=== PATIENT | female | born 1960 | race Caucasian/White ===

== ENCOUNTER 2018-03-23 19:56 | Emergency (ER) | payer MEDICARE ==
--- NOTE | 2018-03-23 22:20 | ED ---
General Adult HPI - General Chief complaint: Extremity Problem,Nontraumatic Stated complaint: Swollen legs/feet Time Seen by Provider: 03/23/18 22:19 Source: patient Mode of arrival: ambulatory Limitations: no limitations - History of Present Illness Initial comments: Oneil is a morbidly obese 57-year-old female presenting to the emergency department for evaluation of lower extremity swelling. Patient reports that she has had intermittent lower extremity swelling for some time, however she recently drove to [place] and back to [place] pick[place] a family member than the airport and after that noticed significantly worse lower extremity edema with her left being more edematous than her right. Edema improves with elevation and worsens with walking. Patient states that her feet were so edematous she had trouble walking and had to use assistance. Her family at bedside also expresses concern that she has progressively become more short of breath over the past few months, she can only walk a very short distance before she has to stop to rest. The patient is uncertain if she has any history of congestive heart failure, she is on daily aspirin and no anticoagulation. Denies any history of DVT or PE. She has no known clotting disorder. - Related Data Allergies Allergy/AdvReac Type Severity Reaction Status Date / Time acetaminophen [From Vicodin] Allergy Unknown Verified 03/23/18 21:16 ampicillin [From Unasyn] Allergy Unknown Verified 03/23/18 21:16 clindamycin Allergy Unknown Verified 03/23/18 21:16 codeine Allergy Unknown Verified 03/23/18 21:16 dicyclomine [From Bentyl] Allergy Unknown Verified 03/23/18 21:16 hydrocodone [From Vicodin] Allergy Unknown Verified 03/23/18 21:16 ibuprofen [From Advil] Allergy Unknown Verified 03/23/18 21:16 lisinopril Allergy Unknown Verified 03/23/18 21:16 magnesium Allergy Unknown Verified 03/23/18 21:16 naproxen Allergy Unknown Verified 03/23/18 21:16 sulbactam [From Unasyn] Allergy Unknown Verified 03/23/18 21:16 sulfamethoxazole Allergy Unknown Verified 03/23/18 21:16 [From Bactrim] trimethoprim [From Bactrim] Allergy Unknown Verified 03/23/18 21:16 Review of Systems ROS Statement: Those systems with pertinent positive or pertinent negative responses have been documented in the HPI. ROS Other: All systems not noted in ROS Statement are negative. Constitutional: Denies: fever ENT: Denies: throat pain Respiratory: Reports: dyspnea Cardiovascular: Reports: dyspnea on exertion, edema. Denies: chest pain, palpitations, syncope Endocrine: Reports: fatigue Gastrointestinal: Denies: abdominal pain Genitourinary: Denies: urgency, dysuria Musculoskeletal: Denies: back pain Skin: Denies: rash, lesions Neurological: Denies: headache, weakness, numbness, paresthesias Psychiatric: Denies: anxiety, depression Hematological/Lymphatic: Denies: easy bleeding, easy bruising Past Medical History Past Medical History: Hypertension, Osteoarthritis (OA) Additional Past Medical History / Comment(s): lupus History of Any Multi-Drug Resistant Organisms: MRSA Date of last positivie culture/infection: 2007 MDRO Source:: leg Past Surgical History: Section, Orthopedic Surgery Additional Past Surgical History / Comment(s): right foot, leg Past Psychological History: No Psychological Hx Reported Smoking Status: Never smoker Past Alcohol Use History: None Reported Past Drug Use History: None Reported General Exam Limitations: no limitations General appearance: alert, in no apparent distress Head exam: Present: atraumatic, normocephalic Eye exam: Present: normal appearance, PERRL ENT exam: Present: normal exam Neck exam: Present: normal inspection Respiratory exam: Absent: respiratory distress, wheezes Cardiovascular Exam: Present: regular rate, normal rhythm, other (Strong radial pulses bilaterally) GI/Abdominal exam: Absent: soft, distended Rectal exam: Present: deferred Extremities exam: Present: normal inspection Back exam: Present: normal inspection Neurological exam: Present: alert, oriented X3 Psychiatric exam: Present: normal affect, normal mood Skin exam: Present: warm, dry, intact. Absent: petechiae, pallor Course Vital Signs 03/23/18 03/23/18 21:08 22:24 Temperature 97.9 F Pulse Rate 78 81 Respiratory 18 17 Rate Blood Pressure 147/96 162/79 O2 Sat by Pulse 96 97 Oximetry Medical Decision Making - Medical Decision Making The patient was seen and evaluated, history was obtained from the patient as well as her sister at bedside Patient with progressively worsening shortness of breath with exertion over the past few months, is also noted some lower extremity edema worsened over the past week or so Labs and imaging were ordered EKG is normal sinus rhythm with a rate of 79, normal axis, patient does have an RR prime pattern TX of 166, QRS of 80, QTc is [address] elevations or depressions Troponin and BNP negative Bilateral lower extremity Dopplers were negative At this time I suspect that the patient's lower extremity edema is multifactorial relating to obesity, heat, exertion but not related to congestive heart failure or a blood clot. I suspect that the patient's exertional dyspnea is related to deconditioning and suggested the patient follow up with her primary care physician to discuss possible as ago therapy. I advised patient she would benefit from weight loss. All questions pertaining to care were answered the best my ability patient was discharged home in stable condition. - Lab Data Result diagrams: 03/23/18 22:30 03/23/18 22:30 Lab Results 03/23/18 03/23/18 03/23/18 Range/Units 22:30 22:30 22:30 WBC 9.9 (3.8-10.6) k/uL RBC 5.03 (3.80-5.40) m/uL Hgb 14.0 (11.4-16.0) gm/dL Hct 43.7 (34.0-46.0) % MCV 86.9 (80.0-100.0) fL MCH 27.8 (25.0-35.0) pg MCHC 32.0 (31.0-37.0) g/dL RDW 14.5 (11.5-15.5) % Plt Count 339 (150-450) k/uL Neutrophils % 68 % Lymphocytes % 21 % Monocytes % 7 % Eosinophils % 3 % Basophils % 0 % Neutrophils # 6.8 (1.3-7.7) k/uL Lymphocytes # 2.1 (1.0-4.8) k/uL Monocytes # 0.7 (0-1.0) k/uL Eosinophils # 0.3 (0-0.7) k/uL Basophils # 0.0 (0-0.2) k/uL PT (9.0-12.0) sec INR (<1.2) APTT (22.0-30.0) sec Sodium 139 (137-145) mmol/L Potassium 4.9 (3.5-5.1) mmol/L Chloride 99 (98-107) mmol/L Carbon Dioxide 31 H (22-30) mmol/L Anion Gap 9 mmol/L BUN 16 (7-17) mg/dL Creatinine 0.90 (0.52-1.04) mg/dL Est GFR (CKD-EPI)AfAm 84 (>60 ml/min/1.73 sqM) Est GFR (CKD-EPI)NonAf 73 (>60 ml/min/1.73 sqM) Glucose 90 (74-99) mg/dL Calcium 9.6 (8.4-10.2) mg/dL Magnesium 2.0 (1.6-2.3) mg/dL Total Bilirubin 0.3 (0.2-1.3) mg/dL AST 21 (14-36) U/L ALT 28 (9-52) U/L Alkaline Phosphatase 109 (38-126) U/L Troponin I (0.000-0.034) ng/mL NT-Pro-B Natriuret Pep 51 pg/mL Total Protein 7.2 (6.3-8.2) g/dL Albumin 4.1 (3.5-5.0) g/dL 03/23/18 03/23/18 Range/Units 22:30 22:30 WBC (3.8-10.6) k/uL RBC (3.80-5.40) m/uL Hgb (11.4-16.0) gm/dL Hct (34.0-46.0) % MCV (80.0-100.0) fL MCH (25.0-35.0) pg MCHC (31.0-37.0) g/dL RDW (11.5-15.5) % Plt Count (150-450) k/uL Neutrophils % % Lymphocytes % % Monocytes % % Eosinophils % % Basophils % % Neutrophils # (1.3-7.7) k/uL Lymphocytes # (1.0-4.8) k/uL Monocytes # (0-1.0) k/uL Eosinophils # (0-0.7) k/uL Basophils # (0-0.2) k/uL PT 9.4 (9.0-12.0) sec INR 0.9 (<1.2) APTT 22.8 (22.0-30.0) sec Sodium (137-145) mmol/L Potassium (3.5-5.1) mmol/L Chloride (98-107) mmol/L Carbon Dioxide (22-30) mmol/L Anion Gap mmol/L BUN (7-17) mg/dL Creatinine (0.52-1.04) mg/dL Est GFR (CKD-EPI)AfAm (>60 ml/min/1.73 sqM) Est GFR (CKD-EPI)NonAf (>60 ml/min/1.73 sqM) Glucose (74-99) mg/dL Calcium (8.4-10.2) mg/dL Magnesium (1.6-2.3) mg/dL Total Bilirubin (0.2-1.3) mg/dL AST (14-36) U/L ALT (9-52) U/L Alkaline Phosphatase (38-126) U/L Troponin I <0.012 (0.000-0.034) ng/mL NT-Pro-B Natriuret Pep pg/mL Total Protein (6.3-8.2) g/dL Albumin (3.5-5.0) g/dL Disposition Clinical Impression: Lower extremity edema, Physical deconditioning Disposition: HOME SELF-CARE Condition: Good Instructions: Leg Edema (ED), Cardiac Rehabilitation (ED) Is patient prescribed a controlled substance at d/c from ED?: No Referrals: None,Stated [REFERRING] - 1-2 days Time of Disposition: 00:41 Decision Time: 00:29
[2018-03-23 22:25] VITALS: RESP 17
--- NOTE | 2018-03-23 23:07 | XR ---
EXAMINATION TYPE: XR chest 2V DATE OF EXAM: 03/23/2018 COMPARISON: NONE HISTORY: Chest pain TECHNIQUE: Frontal and lateral views of the chest are obtained. FINDINGS: There is no heart failure nor confluent pneumonic infiltrate. Costophrenic angles are perry r. Bony thorax is intact. IMPRESSION: No active cardiopulmonary disease.
[2018-03-23 23:20] LABS: Basophils % (A) 0 %; Eosinophils # (A) 0.3 k/uL (0-0.7); Eosinophils % (A) 3 %; HCT 43.7 % (34.0-46.0); Lymphocytes # (A) 2.1 k/uL (1.0-4.8); Lymphocytes % (A) 21 %; MCH 27.8 pg (25.0-35.0); MCV 86.9 fL (80.0-100.0); Mean Platelet Volume 6.4; Monocytes # (A) 0.7 k/uL (0-1.0); Monocytes % (A) 7 %; Neutrophils # (A) 6.8 k/uL (1.3-7.7); Neutrophils % (A) 68 %; Platelet Count 339 k/uL (150-450); RBC 5.03 m/uL (3.80-5.40); RDW 14.5 % (11.5-15.5); WBC 9.9 k/uL (3.8-10.6)
[2018-03-23 23:22] LABS: INR 0.9 (<1.2); Partial Thromboplastin Time 22.8 sec (22.0-30.0); Prothrombin Time 9.4 sec (9.0-12.0)
[2018-03-23 23:24] LABS: Albumin 4.1 g/dL (3.5-5.0); Calcium 9.6 mg/dL (8.4-10.2); Potassium 4.9 mmol/L (3.5-5.1); Total Bilirubin 0.3 mg/dL (0.2-1.3); Total Protein 7.2 g/dL (6.3-8.2)
--- NOTE | 2018-03-24 00:07 | US ---
EXAMINATION TYPE: US venous doppler duplex LE BI DATE OF EXAM: 03/23/2018 11:49 PM COMPARISON: NONE CLINICAL HISTORY: Pain. Bilateral edema Exam limitations due to body habitus. SIDE PERFORMED: Bilateral TECHNIQUE: The lower extremity deep venous system is examined utilizing real time linear array sonog abdullahi with graded compression, doppler sonography and color-flow sonography. VESSELS IMAGED: External Iliac Vein (EIV) Common Femoral Vein Deep Femoral Vein Greater Saphenous Vein * Femoral Vein Popliteal Vein Small Saphenous Vein * Right Leg: Negative for DVT Left Leg: Negative for DVT No evidence of DVT bilateral legs. IMPRESSION: Normal exam. No deep venous thrombosis in both legs.
[2018-03-24 00:46] VITALS: BP 162/73; PULSE 85; TEMP 98.6
== END 2018-03-24 00:45 | disposition home or self-care (01) ==
LOC: EC 19:56
DX: R60.0 Localized edema (principal); E66.01 Morbid (severe) obesity due to excess calories; Z68.43 Body mass index [BMI] 50.0-59.9, adult; Z86.14 Personal history of Methicillin resistant Staphylococcus aureus infection; Z88.2 Allergy status to sulfonamides; Z88.6 Allergy status to analgesic agent; Z88.5 Allergy status to narcotic agent; Z88.1 Allergy status to other antibiotic agents; Z88.8 Allergy status to other drugs, medicaments and biological substances
CPT/HCPCS: 36415; 71046; 80053; 83735; 83880; 84484; 85025; 85610; 85730; 93005; 93970; 99284

== ENCOUNTER 2018-05-25 16:05 | Inpatient (IN) | payer MEDICARE ==
[2018-05-25] MEDS ORDERED: SODIUM CHLORIDE 0.9% 500 ML 500 ML IV STA (16:22)
--- NOTE | 2018-05-25 16:24 | ED ---
General Adult HPI - General Chief complaint: Seizure Stated complaint: seizure Time Seen by Provider: 05/25/18 16:05 Source: patient, EMS, RN notes reviewed Mode of arrival: EMS Limitations: no limitations - History of Present Illness Initial comments: This a 57-year-old female who presents emergency department with past medical history significant for lupus and high blood pressure. Patient also started gabapentin 2 days ago for the first time. Patient comes in today because she had 3 seizures according to the sister. According to EMS she had one in route. EMS gave her Versed. Patient is currently alert and oriented and able to answer all questions. Patient states she felt very tired today prior to the seizures because she was doing a lot of walking around but she was shopping. Patient denied any recent fever chills or cough. Patient denies any chest pain palpitations. Patient denies any difficulty breathing shortness of breath. Patient denies any abdominal pain patient denies any nausea vomiting diarrhea recently. Patient denied any dysuria hematuria urinary frequency. Patient denied any head trauma or injury recently. Patient does not recall ever having had a seizure in the past. - Related Data Home Medications Medication Instructions Recorded Confirmed Aspirin EC [Ecotrin Low Dose] 81 mg PO DAILY 05/25/18 05/25/18 Betamethasone Dipropionate 1 applic TOPICAL BID 05/25/18 05/25/18 [Betamethasone Dipropionate 0.05%] Furosemide [Lasix] 50 mg PO BID 05/25/18 05/25/18 Gabapentin [Neurontin] 300 mg PO TID 05/25/18 05/25/18 Ketoconazole 2% Cream [Nizoral 2%] 1 applic TOPICAL DAILY 05/25/18 05/25/18 Levothyroxine Sodium [Synthroid] 100 mcg PO DAILY 05/25/18 05/25/18 Metoprolol Tartrate [Lopressor] 50 mg PO BID 05/25/18 05/25/18 Omeprazole 20 mg PO DAILY 05/25/18 05/25/18 Allergies Allergy/AdvReac Type Severity Reaction Status Date / Time acetaminophen [From Vicodin] Allergy Unknown Verified 05/25/18 16:28 ampicillin [From Unasyn] Allergy Unknown Verified 05/25/18 16:28 clindamycin Allergy Unknown Verified 05/25/18 16:28 codeine Allergy Unknown Verified 05/25/18 16:28 dicyclomine [From Bentyl] Allergy Unknown Verified 05/25/18 16:28 hydrocodone [From Vicodin] Allergy Unknown Verified 05/25/18 16:28 ibuprofen [From Advil] Allergy Unknown Verified 05/25/18 16:28 lisinopril Allergy Unknown Verified 05/25/18 16:28 magnesium Allergy Unknown Verified 05/25/18 16:28 naproxen Allergy Unknown Verified 05/25/18 16:28 sulbactam [From Unasyn] Allergy Unknown Verified 05/25/18 16:28 sulfamethoxazole Allergy Unknown Verified 05/25/18 16:28 [From Bactrim] trimethoprim [From Bactrim] Allergy Unknown Verified 05/25/18 16:28 Review of Systems ROS Statement: Those systems with pertinent positive or pertinent negative responses have been documented in the HPI. ROS Other: All systems not noted in ROS Statement are negative. Past Medical History Past Medical History: Hypertension, Osteoarthritis (OA) Additional Past Medical History / Comment(s): lupus History of Any Multi-Drug Resistant Organisms: MRSA Date of last positivie culture/infection: 2007 MDRO Source:: leg Past Surgical History: Section, Orthopedic Surgery Additional Past Surgical History / Comment(s): right foot, leg Past Psychological History: No Psychological Hx Reported Smoking Status: Never smoker Past Alcohol Use History: None Reported Past Drug Use History: None Reported General Exam - General Exam Comments Initial Comments: GENERAL: Patient is well-developed and well-nourished. Patient is nontoxic and well- hydrated and is in no acute distress. ENT: Neck is soft and supple. No significant lymphadenopathy is noted. Oropharynx is clear. Moist mucous membranes. Neck has full range of motion without eliciting any pain. EYES: The sclera were anicteric and conjunctiva were pink and moist. Extraocular movements were intact and pupils were equal round and reactive to light. Eyelids were unremarkable. PULMONARY: Unlabored respirations. Good breath sounds bilaterally. No audible rales rhonchi or wheezing was noted. CARDIOVASCULAR: There is a regular rate and rhythm without any murmurs gallops or rubs. ABDOMEN: Soft and nontender with normal bowel sounds. No palpable organomegaly was noted. There is no palpable pulsatile mass. SKIN: Skin is clear with no lesions or rashes and otherwise unremarkable. NEUROLOGIC: Patient is alert and oriented x3. Cranial nerves II through XII are grossly intact. Motor and sensory are also intact. Normal speech, volume and content. Symmetrical smile. MUSCULOSKELETAL: Normal extremities with adequate strength and full range of motion. No lower extremity swelling or edema. No calf tenderness. LYMPHATICS: No significant lymphadenopathy is noted PSYCHIATRIC: Normal psychiatric evaluation. Limitations: no limitations Course Vital Signs 05/25/18 05/25/18 05/25/18 16:07 16:30 17:00 Temperature 98 F Pulse Rate 94 88 89 Respiratory 18 18 16 Rate Blood Pressure 153/84 153/84 152/69 O2 Sat by Pulse 93 L 95 Oximetry 05/25/18 17:30 Temperature Pulse Rate 84 Respiratory 19 Rate Blood Pressure 148/88 O2 Sat by Pulse Oximetry Medical Decision Making - Medical Decision Making EKG shows a normal sinus rhythm at 91 bpm KS interval is 166 QRS is 88 QT interval 398 QTC is 489. Patient's EKG shows no ST segment elevation or depression or T wave abnormalities are noted. CT of the head shows no acute abnormality. Patient had no more seizures while in the emergency department. Because the patient had 4 separate seizures I decided to keep the patient and have neurology see the patient. I also told the patient that the Neurontin which she just recently started taking could lower her seizure threshold. [facility] I wrote admitting orders. - Lab Data Result diagrams: 05/25/18 16:57 05/25/18 16:57 Lab Results 05/25/18 05/25/18 05/25/18 Range/Units 16:57 16:57 16:57 WBC 6.9 (3.8-10.6) k/uL RBC 3.86 (3.80-5.40) m/uL Hgb 10.8 L (11.4-16.0) gm/dL Hct 35.2 (34.0-46.0) % MCV 91.0 (80.0-100.0) fL MCH 27.8 (25.0-35.0) pg MCHC 30.6 L (31.0-37.0) g/dL RDW 14.3 (11.5-15.5) % Plt Count 146 L (150-450) k/uL Neutrophils % 71 % Lymphocytes % 18 % Monocytes % 6 % Eosinophils % 4 % Basophils % 0 % Neutrophils # 4.9 (1.3-7.7) k/uL Lymphocytes # 1.3 (1.0-4.8) k/uL Monocytes # 0.4 (0-1.0) k/uL Eosinophils # 0.3 (0-0.7) k/uL Basophils # 0.0 (0-0.2) k/uL Hypochromasia Slight Sodium 140 (137-145) mmol/L Potassium 4.4 (3.5-5.1) mmol/L Chloride 104 (98-107) mmol/L Carbon Dioxide 28 (22-30) mmol/L Anion Gap 8 mmol/L BUN 16 (7-17) mg/dL Creatinine 1.02 (0.52-1.04) mg/dL Est GFR (CKD-EPI)AfAm 72 (>60 ml/min/1.73 sqM) Est GFR (CKD-EPI)NonAf 62 (>60 ml/min/1.73 sqM) Glucose 97 (74-99) mg/dL Calcium 7.9 L (8.4-10.2) mg/dL Magnesium 2.0 (1.6-2.3) mg/dL Total Bilirubin 0.3 (0.2-1.3) mg/dL AST 23 (14-36) U/L ALT 27 (9-52) U/L Alkaline Phosphatase 99 (38-126) U/L Total Creatine Kinase 61 (30-135) U/L CK-MB (CK-2) <0.2 (0.0-2.4) ng/mL CK-MB (CK-2) Rel Index Troponin I <0.012 (0.000-0.034) ng/mL Total Protein 6.2 L (6.3-8.2) g/dL Albumin 3.5 (3.5-5.0) g/dL Disposition Clinical Impression: Status epilepticus Disposition: ADMITTED IP TO THIS HOSP Referrals: Roge Gil MD [Primary Care Provider] - 1-2 days Time of Disposition: 18:25
[2018-05-25 17:11] LABS: Basophils % (A) 0 %; Eosinophils # (A) 0.3 k/uL (0-0.7); Eosinophils % (A) 4 %; HCT 35.2 % (34.0-46.0); HGB 10.8 gm/dL (11.4-16.0); Hypochromasia Slight; Lymphocytes # (A) 1.3 k/uL (1.0-4.8); Lymphocytes % (A) 18 %; MCH 27.8 pg (25.0-35.0); MCHC 30.6 g/dL (31.0-37.0); Mean Platelet Volume 6.9; Monocytes # (A) 0.4 k/uL (0-1.0); Monocytes % (A) 6 %; Neutrophils # (A) 4.9 k/uL (1.3-7.7); Neutrophils % (A) 71 %; Platelet Count 146 k/uL (150-450); RBC 3.86 m/uL (3.80-5.40); RDW 14.3 % (11.5-15.5); WBC 6.9 k/uL (3.8-10.6)
[2018-05-25 17:23] LABS: Albumin 3.5 g/dL (3.5-5.0); Calcium 7.9 mg/dL (8.4-10.2); Potassium 4.4 mmol/L (3.5-5.1); Total Bilirubin 0.3 mg/dL (0.2-1.3); Total Protein 6.2 g/dL (6.3-8.2)
[2018-05-25 17:35] LABS: Creatine Kinase 61 U/L (30-135)
[2018-05-25 17:46] LABS: Creatine Kinase MB <0.2 ng/mL (0.0-2.4); Troponin I <0.012 ng/mL (0.000-0.034)
--- NOTE | 2018-05-25 18:18 | CT ---
EXAMINATION TYPE: CT brain wo con DATE OF EXAM: 05/25/2018 COMPARISON: None HISTORY: seizure activity CT DLP: 1040.4 mGycm Automated exposure control for dose reduction was used. FINDINGS: Ventricles of normal size. There is no mass effect nor midline shift. There is no sign of intracrania l hemorrhage. The calvarium is intact. IMPRESSION: NEGATIVE CT SCAN OF THE BRAIN.
[2018-05-25] MEDS ORDERED: SODIUM CHLORIDE 0.9% 1,000 ML IV ONE (18:25)
[2018-05-25] MEDS ORDERED: MELATONIN 3 MG TABLET PO PRN (20:27)
--- NOTE | 2018-05-25 20:52 | XR ---
EXAMINATION TYPE: XR chest 1V portable DATE OF EXAM: 05/25/2018 COMPARISON: 03/23/2018 HISTORY: Seizure. Heart failure TECHNIQUE: Single frontal view of the chest is obtained. FINDINGS: Heart and mediastinum appear normal. Lungs are clear. There is no heart failure. There is no evidence of pleural effusion. IMPRESSION: No active cardiopulmonary disease. No change.
[2018-05-25 21:23] LABS: Prothrombin Time 9.9 sec (9.0-12.0)
--- NOTE | 2018-05-25 21:33 | HP ---
HISTORY AND PHYSICAL DATE OF SERVICE: 05/25/2018 CHIEF COMPLAINT: Seizures. HISTORY OF PRESENT ILLNESS: This 57-year-old woman with a past medical history of multiple medical problems, hypertension, history of DJD, sleep apnea, history of lupus, history of thyroid mass, history of MRSA being followed by Dr. Guan in the outpatient setting noted to have seizures today. The patient was started on gabapentin about 2 days ago and patient apparently had 4 seizures according to the sister, generalized tonic- clonic and the EMS, gave Versed and the patient became gradually oriented but unable to remember seizures and patient admitted for further evaluation and treatment. There is no history of fever, rigors or chills. No history of any chest pain, palpitations, hematochezia or melena. PAST MEDICAL HISTORY: Past medical history of hypertension, DJD, sleep apnea, lupus, section. MEDICATIONS: Prior to admission include: 1. Ketoconazole 1 application daily. 2. Neurontin 300 mg t.i.d. 3. Betamethasone one application b.i.d. 4. Lopressor 50 mg b.i.d. 5. Synthroid 100 mcg. 6. Omeprazole 20 mg p.o. daily. 8. Ecotrin 81 mg p.o. daily. ALLERGIES: TYLENOL, CLINDAMYCIN, CODEINE, VICODIN, LISINOPRIL, MAGNESIUM, NAPROSYN, UNASYN, BACTRIM. FAMILY HISTORY: History of cancer, seizure disorder, hypertension. SOCIAL HISTORY: No history of smoking. No history of alcohol intake. REVIEW OF SYSTEMS: ENT: No diminished vision, no diminished hearing. CARDIOVASCULAR: No angina or palpitations. RESPIRATORY: No cough or hemoptysis. GI no nausea or vomiting. no dysuria. NERVOUS SYSTEM: As mentioned earlier. ALLERGIES/IMMUNOLOGY: No asthma or hayfever. MUSCULOSKELETAL as mentioned earlier. HEMATOLOGY: No history of anemia. ENDOCRINE: As mentioned earlier. CONSTITUTIONAL: As mentioned earlier. DERMATOLOGY negative. RHEUMATOLOGY as mentioned earlier. PSYCHIATRIC: As mentioned earlier. PHYSICAL EXAMINATION: GENERAL: Alert, oriented x3. VITAL SIGNS: Pulse 79. Blood pressure 119/72, respiratory rate 16, temperature 98 degrees, pulse ox 98% on room air. HEENT: Conjunctivae normal. Oral mucosa moist. NECK is no jugular venous distention. No carotid bruit. No lymph node enlargement. CARDIOVASCULAR: S1, S2. RESPIRATORY: Breath sounds diminished in the bases. No rhonchi. No crackles. ABDOMEN: Soft, nontender. No mass palpable. LEGS: No edema. No swelling. NERVOUS SYSTEM: Higher functions as mentioned earlier. CENTRAL NERVOUS SYSTEM: Higher functions as mentioned earlier. Moves all four extremities. No focal deficits. Lymphatics: No lymph nodes palpable in the neck, axillae or groin. SKIN: No ulcer, rash or bleeding. LABS: WBC 6.2, hemoglobin 10.8, and calcium 7.9. ASSESSMENT: 1. Generalized tonic-clonic seizures for evaluation. 2. History of lupus erythematosus. 3. History of hypertension. 4. History of degenerative joint disease. 5. History of hypothyroidism. 6. History of thyroid masses. 7. History of Methicillin-resistant Staphylococcus aureus. 8. History of section. 9. History of degenerative joint disease. 10.Obesity, body mass index 53.1. RECOMMENDATIONS AND DISCUSSION: In this 57-year-old woman who presents with multiple medical problems, I recommend to continue current medications, management and symptomatic treatment. Otherwise, resume the home medications. Neurology evaluation. The initial CAT scan of the brain did not show any acute abnormality. I will also obtain MRI and also order ESR and CRP and Ensure. Rheumatology followup as well. Prognosis guarded because of multiple complex medical issues. Neuro checks. Neurovascular workup. Further recommendations to follow. A copy of this dictation being forward to Dr. Gil who is the primary physician. PERLA / HERIBERTO: [id number] / MTDD
[2018-05-25] MEDS: METOPROLOL TARTRATE 50 MG TAB PO SCH (22:48)
[2018-05-25] MEDS: FUROSEMIDE 20 MG TAB PO SCH (22:49)
[2018-05-25] MEDS: HEPARIN SODIUM,PORCINE 5,000 UNIT/ML 1 ML VIAL SQ SCH (22:50)
[2018-05-25] MEDS: BETAMETHASONE DIPROPIONATE 0.05% OINTMENT 45 GM TUBE TOPICAL SCH (22:50)
[2018-05-25] MEDS ORDERED: PANTOPRAZOLE 40 MG TABLET PO STA (22:52)
[2018-05-26 00:29] LABS: Appearance,Urine Clear (Clear); Bacteria,Urine Rare /hpf; Bilirubin,Urine Negative (Negative); Blood,Urine Negative (Negative); Color,Urine Light Yellow; Glucose,Urine (UA) Negative (Negative); Ketones,Urine Negative (Negative); Leukocyte Esterase,Urine Large (Negative); Nitrite,Urine Negative (Negative); PH, Urine 6.5 (5.0-8.0); Protein,Urine Negative (Negative); RBC,Urine 2 /hpf (0-5); Specific Gravity,Urine 1.012 (1.001-1.035); Squamous Epithelial Cell,Urine 4 /hpf (0-4); Urobilinogen,Urine <2.0 mg/dL (<2.0)
[2018-05-26 00:35] LABS: Amphetamine Screen,Urine Not Detected (NotDetected); Barbiturate Screen,Urine Not Detected (NotDetected); Benzodiazepines Screen,Urine Not Detected (NotDetected); Cocaine Screen,Urine Not Detected (NotDetected); Methadone Screen, Urine Not Detected (NotDetected); Opiate Screen,Urine Not Detected (NotDetected); Oxycodone Screen, Urine Not Detected (NotDetected); Phencyclidine Screen,Urine Not Detected (NotDetected); Tricyclic Antidepressant,Urine Not Detected (NotDetected); Urn Cannabinoid Scrn Not Detected (NotDetected)
[2018-05-26] MEDS: LORazepam 2 MG/ML INJ IV PRN ×3 (01:41→22:17)
[2018-05-26] MEDS ORDERED: levETIRAcetam IV 500 MG in SODIUM CHLORIDE 0.9% 100 ML IVPB SCH (05:00)
[2018-05-26] MEDS: HYDROcodone/APAP 5-325MG 1 EACH TAB PO PRN ×2 (05:11→17:02)
[2018-05-26] MEDS: LIDOCAINE 5% PATCH TOPICAL SCH ×2 (05:39→10:08)
[2018-05-26] MEDS: LEVOTHYROXINE 100 MCG TAB PO SCH (05:40)
[2018-05-26] MEDS ORDERED: PANTOPRAZOLE 40 MG TABLET PO SCH (07:30)
[2018-05-26 09:36] LABS: Basophils % (A) 0 %; Eosinophils # (A) 0.2 k/uL (0-0.7); Eosinophils % (A) 2 %; HCT 40.9 % (34.0-46.0); Hypochromasia Slight; Lymphocytes # (A) 1.2 k/uL (1.0-4.8); Lymphocytes % (A) 15 %; MCH 28.7 pg (25.0-35.0); MCHC 31.8 g/dL (31.0-37.0); MCV 90.1 fL (80.0-100.0); Mean Platelet Volume 5.9; Monocytes # (A) 0.4 k/uL (0-1.0); Monocytes % (A) 5 %; Neutrophils # (A) 6.1 k/uL (1.3-7.7); Neutrophils % (A) 76 %; Platelet Count 251 k/uL (150-450); RBC 4.54 m/uL (3.80-5.40); RDW 14.1 % (11.5-15.5)
[2018-05-26 09:38] LABS: Calcium 8.4 mg/dL (8.4-10.2); Magnesium 1.9 mg/dL (1.6-2.3)
--- NOTE | 2018-05-26 09:53 | US ---
EXAMINATION TYPE: US carotid duplex BILAT DATE OF EXAM: 05/26/2018 COMPARISON: NONE CLINICAL HISTORY: stroke. EXAM MEASUREMENTS: RIGHT: Peak Systolic Velocity (PSV) cm/sec ----- Right CCA: 117.7 ----- Right ICA: 77.4 ----- Right ECA: 111.3 ICA/CCA ratio: 0.7 RIGHT: End Diastole cm/sec ----- Right CCA: 35.4 ----- Right ICA: 25.7 ----- Right ECA: 22.5 LEFT: Peak Systolic Velocity (PSV) cm/sec ----- Left CCA: 88.7 ----- Left ICA: 104.8 ----- Left ECA: 124.2 ICA/CCA ratio: 1.2 LEFT: End Diastole cm/sec ----- Left CCA: 32.1 ----- Left ICA: 33.8 ----- Left ECA: 17.6 VERTEBRALS (direction of flow): Right Vertebral: Antegrade Left Vertebral: Antegrade Rhythm: Normal IMPRESSION: Moderate amount of plaque visualized bilateral bulbs. No elevated velocities, no signific ant stenosis. Criteria for Assigning % of Stenosis / Diameter reduction (Estimation based on the indirect measurements of the internal carotid artery velocities (ICA PSV). 1. Normal (no stenosis)=ICA PSV < 125 cm/s: ratio < 2.0: ICA EDV<40 cm/s. 2. Less than 50% stenosis=ICA PSV < 125 cm/s: ratio < 2.0: ICA EDV<40 cm/s. 3. 50 to 69% stenosis=ICA PSV of 125 to 230 cm/s: ration 2.0 ? 4.0: ICA EDV 40-100 cm/s. 4. Greater than 70% stenosis to near occlusion= ICA PSV > 230 cm/s: ratio > 4.0: ICA EDV > 100 cm/s. 5. Near occlusion= ICA PSV velocities may be low or undetectable: variable ratio and ICA EDV. 6. Total occlusion=unable to detect flow.
[2018-05-26] MEDS: METOPROLOL TARTRATE 50 MG TAB PO SCH ×2 (10:07→23:10)
[2018-05-26] MEDS: ASPIRIN 81 MG PO SCH (10:07)
[2018-05-26] MEDS: FUROSEMIDE 20 MG TAB PO SCH ×2 (10:07→17:02)
[2018-05-26] MEDS: PANTOPRAZOLE 40 MG TABLET PO SCH (10:08)
--- NOTE | 2018-05-26 11:39 | MR ---
MR brain without contrast HISTORY: Seizure Multiplanar multisequence imaging through the brain and correlated to CT brain 05/25/2018. Fast brain protocol utilized due to patient's inability to cooperate. There is no restricted diffusion. There is no hemorrhage or hydrocephalus. Scattered and confluent hy perintensities are present within the pericallosal, periventricular, subcortical white matter on inve rsion recovery T2-weighted sequences, approximately 30 lesions are present. Largest in the left front al white matter measures 7 to 8 mm on axial image 20, adjacent to the left lateral ventricle axial im age 20 there is a 10 mm lesion, right frontal lesion axial image 21 measures 9.5 mm. Within the maxil tomer sinuses there is some mucoperiosteal thickening present. Cerebellopontine angles, corpus callosu m, pituitary, cervical medullary junction are normal. The orbits are symmetric. There are normal vasc ular flow voids. IMPRESSION: Nonspecific white matter demyelination, correlate for possible multiple sclerosis, hypert ension, migraine headaches, vasculitis and chronic small vessel ischemic changes.
--- NOTE | 2018-05-26 12:30 | ECHOF ---
Referral Reason:Stroke MEASUREMENTS -------- HEIGHT: 160.0 cm WEIGHT: 136.1 kg BP: 152/88 IVSd: 1.2 cm (0.6 - 1.1) LVIDd: 4.8 cm (3.9 - 5.3) LVPWd: 1.1 cm (0.6 - 1.1) IVSs: 1.6 cm LVIDs: 2.9 cm LVPWs: 1.6 cm Ao Diam: 3.0 cm (2.0 - 3.7) LA Diam: 3.5 cm (2.7 - 3.8) MV E Kan: 0.83 m/s MV DecT: 202 ms MV A Kan: 0.81 m/s MV E/A Ratio: 1.03 RAP: 5.00 mmHg RVSP: 10.23 mmHg FINDINGS -------- Sinus rhythm. Morbid Obesity The left ventricular size is normal. There is mild concentric left ventricular hypertrophy. Overa ll left ventricular systolic function is low-normal with, an EF between 50 - 55 %. The right ventricle is normal in size. The left atrial size is normal. The right atrial size is normal. The aortic valve was not well visualized. The mitral valve was not well visualized. The tricuspid valve was not well visualized. The pulmonic valve was not well visualized. The aortic root size is normal. CONCLUSIONS -------- 1. Morbid Obesity 2. The left ventricular size is normal. 3. There is mild concentric left ventricular hypertrophy. 4. Overall left ventricular systolic function is low-normal with, an EF between 50 - 55 %. 5. The right ventricle is normal in size. 6. The left atrial size is normal. 7. The right atrial size is normal. 8. The aortic valve was not well visualized. 9. The mitral valve was not well visualized. 10. The tricuspid valve was not well visualized. 11. The pulmonic valve was not well visualized. 12. The aortic root size is normal. SUPERVISOR [employer]EE: Antonia Dumont RDCS
--- NOTE | 2018-05-26 15:08 | XR ---
EXAMINATION TYPE: XR lumbosacral spine min 4V DATE OF EXAM: 05/26/2018 CLINICAL HISTORY: Chronic back pain TECHNIQUE: Frontal, lateral, and oblique images of the lumbar spine are obtained. COMPARISON: None FINDINGS: There are 5 lumbar type vertebral bodies identified. The lumbar spine shows satisfactory alignment without evidence of acute fracture or dislocation. Small marginal osteophytes are seen thro ughout the lumbar spine. Facet arthropathy is present from L3 through S1. No discrete pars interartic ularis defects are appreciated. No right-sided neural foraminal narrowing is seen. There is suspected left-sided neural foraminal narrowing at L4-L5 appearing overall mild. There is a mild dextroscolios is of the lumbar spine. IMPRESSION: No acute fracture or malalignment is seen in the lumbar spine. Multilevel degenerative d isc disease, overall mild in degree as described above.
[2018-05-26] MEDS: CLOTRIMAZOLE 1% CREAM 15 GM TUBE TOPICAL SCH (16:54)
[2018-05-26] MEDS: BETAMETHASONE DIPROPIONATE 0.05% OINTMENT 45 GM TUBE TOPICAL SCH ×2 (16:54→23:12)
--- NOTE | 2018-05-26 16:59 | P.CONS ---
History of Present Illness - Reason for Consult Consult date: 05/26/18 Seizures - Chief Complaint Seizures - History of Present Illness Is a pleasant 57-year-old female being evaluated by the neurology service for seizures. A significant history of hypertension, low back pain, sleep apnea, lupus, thyroid mass. She says she had started gabapentin about 2 days ago for some back pain. She reports having about 4 seizures consistent with generalized tonic-clonic activity. She was given Versed by EMS and became oriented. She did have a postictal state. She was started on IV Keppra which she is tolerating well. She has had 1 witnessed seizure since admission. But none today. An MRI of the low back was done because of her low back pain and possibly because of a fall and seizure activity. There were no acute findings. She has multilevel degenerative disc disease and facet arthropathy. A CT of the brain was done and showed no acute intracranial abnormalities. Note that an MRI of the brain was also performed because she had denied previous seizure activity. Upon talking to the patient further she does remember at one point being told by her family that she had seizures and she is actually been on Dilantin before she said she had to stop it because of some significant side effects. Regardless her MRI showed no acute intracranial abnormalities andoccupying lesions. However, it did show scattered and confluent hyperintensities in the claudio-colossal, periventricular, subcortical regions. There are about 30 lesions. The study was done without contrast and with fast protocol because of her inability to cooperate. These lesions are fairly consistent with those of multiple sclerosis. At the time my exam she is resting comfortably bed in no acute distress. Review of Systems All systems: negative Constitutional: Reports as per HPI Past Medical History Past Medical History: Hypertension, Osteoarthritis (OA), Sleep Apnea/CPAP/BIPAP , Thyroid Disorder Additional Past Medical History / Comment(s): lupus, pt stated "she has thyroid masses one of which overllaps esophagus. she stated she has had a bx and egd w/dilation.no bx results as of yet". uses cpap machine, upper dental brisge, hiatal hernia, gout feet and rt arm, palpatations. "chronic rash legs, arms" History of Any Multi-Drug Resistant Organisms: MRSA Year Discovered:: 2007 MDRO Source:: leg Past Surgical History: Section, Orthopedic Surgery Additional Past Surgical History / Comment(s): right foot, leg. egd/dilation, thyroid bx-no results yet. Past Anesthesia/Blood Transfusion Reactions: No Reported Reaction Additional Past Anesthesia/Blood Transfusion Reaction / Comm: clausterphobia. never had a blood transfusion. Smoking Status: Never smoker - Past Family History Mother History Unknown: Yes Additional Family Medical History / Comment(s): pt stated she was adopted at age 5 does'nt kow anything about her mom Father Family Medical History: Cancer, Hypertension, Seizure Disorder Additional Family Medical History / Comment(s): heart problems, brittle bone disease Medications and Allergies Home Medications Medication Instructions Recorded Confirmed Type Aspirin EC [Ecotrin Low Dose] 81 mg PO DAILY 05/25/18 05/25/18 History Betamethasone Dipropionate 1 applic TOPICAL BID 05/25/18 05/25/18 History [Betamethasone Dipropionate 0.05%] Furosemide [Lasix] 50 mg PO BID 05/25/18 05/25/18 History Gabapentin [Neurontin] 300 mg PO TID 05/25/18 05/25/18 History Ketoconazole 2% Cream [Nizoral 2%] 1 applic TOPICAL DAILY 05/25/18 05/25/18 History Levothyroxine Sodium [Synthroid] 100 mcg PO DAILY 05/25/18 05/25/18 History Metoprolol Tartrate [Lopressor] 50 mg PO BID 05/25/18 05/25/18 History Omeprazole 20 mg PO DAILY 05/25/18 05/25/18 History Allergies Allergy/AdvReac Type Severity Reaction Status Date / Time acetaminophen [From Vicodin] Allergy Unknown Verified 05/26/18 01:24 ampicillin [From Unasyn] Allergy Unknown Verified 05/26/18 01:24 clindamycin Allergy Unknown Verified 05/26/18 01:24 codeine Allergy Unknown Verified 05/26/18 01:24 dicyclomine [From Bentyl] Allergy Unknown Verified 05/26/18 01:24 hydrocodone [From Vicodin] Allergy Unknown Verified 05/26/18 01:24 ibuprofen [From Advil] Allergy Unknown Verified 05/26/18 01:24 latex Allergy Rash/Hives Verified 05/26/18 01:24 lisinopril Allergy Unknown Verified 05/26/18 01:24 magnesium Allergy Unknown Verified 05/26/18 01:24 naproxen Allergy Unknown Verified 05/26/18 01:24 sulbactam [From Unasyn] Allergy Unknown Verified 05/26/18 01:24 sulfamethoxazole Allergy Unknown Verified 05/26/18 01:24 [From Bactrim] trimethoprim [From Bactrim] Allergy Unknown Verified 05/26/18 01:24 Physical Exam Vitals: Vital Signs Temp Pulse Pulse Resp BP BP Pulse Ox 05/26/18 14:42 98.0 F 73 18 142/86 96 05/26/18 06:40 96.5 F L 73 16 152/88 93 L 05/25/18 22:53 97.3 F L 80 18 141/89 97 05/25/18 20:30 77 18 122/70 96 05/25/18 20:00 78 16 132/71 05/25/18 19:02 98 F 79 16 119/78 96 05/25/18 17:30 84 19 148/88 05/25/18 17:00 89 16 152/69 Intake and Output 05/26/18 05/26/18 05/26/18 06:59 14:59 22:59 Intake Total 200 Balance 200 Intake: Oral 200 Other: # Voids 2 2 # Bowel Movements 0 - Constitutional General appearance: cooperative, no acute distress - EENT Eyes: no abnormal pupil, EOMI, PERRLA, poor dentition, no ptosis ENT: hearing grossly normal - Neck Neck: normal ROM, no rigidity - Respiratory Respiratory: negative: prolonged expiration, prolonged inspiration - Cardiovascular Rhythm: regular - Gastrointestinal General gastrointestinal: no distended, no tenderness - Neurologic The patient is alert awake and oriented 3. Speech and language are normal. There is no facial asymmetry. Strength is 5 out of 5 in bilateral upper and lower extremities. There is no sensory deficit. No tremors or seizures are seen. Cranial nerves II through XII are intact globally. Neurologic: CNII-XII intact Results CBC & Chem 7: 05/26/18 09:09 05/26/18 09:09 Labs: Abnormal Lab Results - Last 24 Hours (Table) 05/25/18 05/25/18 05/25/18 Range/Units 16:57 16:57 21:12 Hgb 10.8 L (11.4-16.0) gm/dL MCHC 30.6 L (31.0-37.0) g/dL Plt Count 146 L (150-450) k/uL Carbon Dioxide (22-30) mmol/L Glucose (74-99) mg/dL Calcium 7.9 L (8.4-10.2) mg/dL Total Protein 6.2 L (6.3-8.2) g/dL Ur Leukocyte Esterase Large H (Negative) Urine WBC 20 H (0-5) /hpf Urine Bacteria Rare H (None) /hpf 05/26/18 Range/Units 09:09 Hgb (11.4-16.0) gm/dL MCHC (31.0-37.0) g/dL Plt Count (150-450) k/uL Carbon Dioxide 32 H (22-30) mmol/L Glucose 100 H (74-99) mg/dL Calcium (8.4-10.2) mg/dL Total Protein (6.3-8.2) g/dL Ur Leukocyte Esterase (Negative) Urine WBC (0-5) /hpf Urine Bacteria (None) /hpf Microbiology - Last 24 Hours (Table) 05/25/18 21:12 Urine Culture - Preliminary Urine,Voided Assessment and Plan (1) Generalized convulsive seizures Current Visit: Yes Status: Acute Code(s): R56.9 - UNSPECIFIED CONVULSIONS SNOMED Code(s): 245940070 (2) Lupus Current Visit: Yes Status: Chronic Code(s): L93.0 - DISCOID LUPUS ERYTHEMATOSUS SNOMED Code(s): 271672838 (3) Hypertension Current Visit: Yes Status: Chronic Code(s): I10 - ESSENTIAL (PRIMARY) HYPERTENSION SNOMED Code(s): 08706447 (4) Hypothyroidism Current Visit: Yes Status: Chronic Code(s): E03.9 - HYPOTHYROIDISM, UNSPECIFIED SNOMED Code(s): 67497431 Plan: The patient seems to be having generalized tonic-clonic seizure activity. Upon further questioning she did reveal that this is not a new onset seizure activity. It seems to be controlled on IV Keppra. She will continue 750 mg IV twice a day. We can switch this to 750 mg twice a day oral starting tomorrow morning. See above for her MRI, brain findings. We will see her in outpatient setting to investigate the possibility of demyelinating disease. An EEG has been performed. And we are awaiting the data for evaluation. Continue seizure precautions. Continue neurological checks. We will continue to follow and make recommendations based on the above study. I have performed a history and physical on the above patient. I have reviewed the above note, and agree.
[2018-05-26] MEDS: levETIRAcetam IV 750 MG in SODIUM CHLORIDE 0.9% 100 ML IVPB SCH (17:31)
[2018-05-26] MEDS: HEPARIN SODIUM,PORCINE 5,000 UNIT/ML 1 ML VIAL SQ SCH ×2 (18:32→23:10)
--- NOTE | 2018-05-26 19:37 | PN ---
PROGRESS NOTE DATE OF SERVICE: 05/26/2018 This 57-year-old woman who was admitted with generalized tonic-clonic seizures, also has Lupus erythematosus. No chest pain. No palpitations. No fever. EXAM: Alert and oriented x3. Pulse 73, blood pressure 140/80, respiration 18, temperature 98 degrees, pulse ox 90% on room air. HEENT: Conjunctivae normal. NECK: No jugular venous distention. CARDIOVASCULAR: S1, S2 muffled. RESPIRATORY: Breath sounds diminished in the bases. No rhonchi, no crackles. ABDOMEN: Soft. LEGS: No edema. NERVOUS SYSTEM: No focal deficits. LABS: ESR 70, other labs are noted. UA noted. ASSESSMENT: 1. Generalized tonic-clonic seizures. 2. History of lupus erythematosus. 3. White matter lesions on MRI, rule out demyelination. 4. Urinary tract infection. 5. History of hypertension. 6. History of degenerative joint disease. 7. Hypothyroidism. 8. History of thyroid mass. 9. History of Methicillin-resistant Staphylococcus aureus. 10.History of section. 11.History of degenerative joint disease. 12.Obesity with body mass index of 53.1. RECOMMENDATIONS AND DISCUSSION: I recommend to continue current management and symptomatic treatment. I recommend broad-spectrum IV antibiotics. Otherwise, the Keppra dose has been increased to 750 b.i.d. MRI scan. We will continue to monitor with Neurology. Guarded prognosis because of multiple complex medical issues. Further recommendations to follow. MMODL / IJN: [id number] /
[2018-05-27] MEDS: levETIRAcetam IV 750 MG in SODIUM CHLORIDE 0.9% 100 ML IVPB SCH (05:34)
[2018-05-27] MEDS: LEVOTHYROXINE 100 MCG TAB PO SCH (05:35)
[2018-05-27 08:49] LABS: Basophils % (A) 0 %; Eosinophils # (A) 0.2 k/uL (0-0.7); Eosinophils % (A) 4 %; HCT 42.3 % (34.0-46.0); HGB 13.2 gm/dL (11.4-16.0); Lymphocytes # (A) 1.3 k/uL (1.0-4.8); Lymphocytes % (A) 21 %; MCH 27.8 pg (25.0-35.0); MCHC 31.1 g/dL (31.0-37.0); MCV 89.4 fL (80.0-100.0); Mean Platelet Volume 6.6; Monocytes # (A) 0.4 k/uL (0-1.0); Monocytes % (A) 6 %; Neutrophils # (A) 4.4 k/uL (1.3-7.7); Neutrophils % (A) 68 %; Platelet Count 263 k/uL (150-450); RBC 4.73 m/uL (3.80-5.40); RDW 14.3 % (11.5-15.5); WBC 6.5 k/uL (3.8-10.6)
[2018-05-27 08:53] LABS: Calcium 8.8 mg/dL (8.4-10.2); Potassium 4.4 mmol/L (3.5-5.1)
[2018-05-27] MEDS: PANTOPRAZOLE 40 MG TABLET PO SCH (09:40)
[2018-05-27] MEDS: METOPROLOL TARTRATE 50 MG TAB PO SCH ×2 (09:40→20:25)
[2018-05-27] MEDS: LIDOCAINE 5% PATCH TOPICAL SCH (09:41)
[2018-05-27] MEDS: FUROSEMIDE 20 MG TAB PO SCH ×2 (09:41→17:19)
[2018-05-27] MEDS: ASPIRIN 81 MG PO SCH (09:41)
[2018-05-27] MEDS: HEPARIN SODIUM,PORCINE 5,000 UNIT/ML 1 ML VIAL SQ SCH ×2 (09:42→20:24)
[2018-05-27] MEDS: BETAMETHASONE DIPROPIONATE 0.05% OINTMENT 45 GM TUBE TOPICAL SCH ×2 (11:33→20:22)
[2018-05-27] MEDS: CLOTRIMAZOLE 1% CREAM 15 GM TUBE TOPICAL SCH (11:33)
--- NOTE | 2018-05-27 12:43 | P.PN ---
Subjective Progress Note Date: 05/27/18 Principal diagnosis: Seizures Recall is a pleasant 57-year-old female continuing be evaluated by the neurology service for seizures. We did find out that she did have a previous history of seizures but had not been on an antiepileptic for seizures and some time. She was doing well on IV Keppra 750 mg every 12 hours, but had one breakthrough seizure last night. You increased her Keppra to 1000 mg every 12 hours and will continue to monitor. Her MRI of the brain showed no acute intracranial abnormalities but did show some nonspecific white matter changes which will be investigated further outpatient area. At the time my exam she is resting comfortably in bed in no acute distress. Objective - Vital Signs Vital signs: Vital Signs Temp 97.4 F L 05/27/18 07:18 Pulse 77 05/27/18 07:18 Resp 16 05/27/18 07:18 BP 140/94 05/27/18 07:18 Pulse Ox 95 05/27/18 07:18 Intake & Output 05/26/18 05/27/18 05/27/18 18:59 06:59 18:59 Intake Total 200 300 Balance 200 300 Intake: Oral 200 300 Other: Voiding Method Toilet # Voids 2 2 1 # Bowel Movements 0 0 - Constitutional General appearance: Present: cooperative, no acute distress, obese - EENT Eyes: Present: EOMI, PERRLA. Absent: abnormal pupil, ptosis ENT: Present: hearing grossly normal - Neck Neck: Present: normal ROM. Absent: rigidity - Respiratory Respiratory: negative: prolonged expiration, prolonged inspiration - Cardiovascular Rhythm: regular - Gastrointestinal General gastrointestinal: Absent: distended, tenderness - Neurologic Neurologic Comment(s): The patient is alert awake and oriented 3. Speech and language are normal. There is no facial asymmetry. Strength is 5 out of 5 in bilateral upper and lower extremities. There is no sensory deficit. No tremors or seizures are seen. Cranial nerves II through XII are intact globally. - Labs CBC & Chem 7: 05/27/18 08:13 05/27/18 08:13 Labs: Abnormal Lab Results - Last 24 Hours (Table) 05/27/18 Range/Units 08:13 Glucose 118 H (74-99) mg/dL Microbiology - Last 24 Hours (Table) 05/25/18 21:12 Urine Culture - Preliminary Urine,Voided Assessment and Plan (1) Generalized convulsive seizures Current Visit: Yes Status: Acute Code(s): R56.9 - UNSPECIFIED CONVULSIONS SNOMED Code(s): 464271224 (2) Lupus Current Visit: Yes Status: Chronic Code(s): L93.0 - DISCOID LUPUS ERYTHEMATOSUS SNOMED Code(s): 768464339 (3) Hypertension Current Visit: Yes Status: Chronic Code(s): I10 - ESSENTIAL (PRIMARY) HYPERTENSION SNOMED Code(s): 82397079 (4) Hypothyroidism Current Visit: Yes Status: Chronic Code(s): E03.9 - HYPOTHYROIDISM, UNSPECIFIED SNOMED Code(s): 78230745 Plan: The patient seems to be having generalized tonic-clonic seizure activity. Upon further questioning she did reveal that this is not a new onset seizure activity. She had one breakthrough seizure as mentioned above. She will continue Keppra 1000 mg IV twice a day. We can switch this to 1000 mg twice a day oral starting tomorrow morning. See above for her MRI, brain findings. We will see her in outpatient setting to investigate the possibility of demyelinating disease. Continue seizure precautions. Continue neurological checks. An EEG has been performed. We will continue to follow. I have performed a history and physical on the above patient. I have reviewed the above note, and agree.
[2018-05-27] MEDS: LORazepam 2 MG/ML INJ IV PRN (16:04)
[2018-05-27] MEDS: levETIRAcetam 500 MG TAB PO SCH (20:25)
[2018-05-27] MEDS: HYDROcodone/APAP 5-325MG 1 EACH TAB PO PRN (20:30)
--- NOTE | 2018-05-27 21:29 | PN ---
PROGRESS NOTE DATE OF SERVICE: 05/27/2018 This 57-year-old woman was admitted with seizures, also had seizures last night , which was generalized tonic-clonic. MRI showed white matter lesions. Neurology saw the patient and Keppra dose was increased to 750 mg p.o. b.i.d. Outpatient evaluation also been suggested. PAST MEDICAL HISTORY: Reviewed. REVIEW OF SYSTEMS: The patient is stuporous. CURRENT MEDICATIONS: Reviewed and include: 1. Firth 5 mg q.6. 2. Aspirin 81 mg daily. 3. 1 application topically b.i.d. 4. Rocephin 1 g daily. 5. Clotrimazole. 6. Lasix 50 mg b.i.d. 7. Heparin subcu b.i.d. 8. Keppra 1 g b.i.d. 9. Synthroid 100 mcg daily. 10.Lidoderm. 11.Ativan 1 mg q.6h p.r.n. 12.Melatonin 3 mg q.h.s. 13.Lopressor 50 mg b.i.d. 14.Protonix 40 mg daily. PHYSICAL EXAM: Patient is alert, oriented x2. Pulse is 77, blood pressure 140/90, respirations 16, temperature 97.4, pulse ox 94% on room air. HEENT: Conjunctivae normal. Oral mucosa moist. Neck is no jugular venous distention. No carotid bruit. No lymph node enlargement. CARDIOVASCULAR: S1, S2. RESPIRATORY: Breath sounds diminished in the bases. A few scattered rhonchi and crackles. ABDOMEN: Soft, obese, nontender. LEGS: No edema. NERVOUS SYSTEM: No focal deficits. LAB STUDIES: WBC 13, hemoglobin is 12, glucose 118. UA noted. ASSESSMENT: 1. Generalized tonic-clonic seizures. 2. History of lupus erythematosus. 3. White matter lesions on MRI rule out demyelination. 4. Urinary tract infection. 5. History of hypertension. 6. History of degenerative joint disease. 7. Hypothyroidism. 8. History of thyroid mass. 9. History of Methicillin-resistant Staphylococcus aureus. 11.History of degenerative joint disease. 12.Obesity with body mass index of 53.1. RECOMMENDATIONS AND DISCUSSION: I recommend to continue current management and symptomatic treatment. Otherwise at this time I recommend follow closely with Neurology. I would also obtain evaluation by Dr. Vargas also. Prognosis guarded. Further recommendations to follow. Discussed with the family at length. Prognosis guarded. Closely follow with Neurology. MMODL / IJN: [id number] / JULIANO
[2018-05-28] MEDS: HYDROcodone/APAP 5-325MG 1 EACH TAB PO PRN ×2 (02:54→20:41)
[2018-05-28] MEDS: LEVOTHYROXINE 100 MCG TAB PO SCH (05:45)
[2018-05-28] MEDS: LORazepam 2 MG/ML INJ IV PRN ×2 (09:41→23:57)
[2018-05-28] MEDS: ASPIRIN 81 MG PO SCH (09:52)
[2018-05-28] MEDS: PANTOPRAZOLE 40 MG TABLET PO SCH (09:52)
[2018-05-28] MEDS: FUROSEMIDE 20 MG TAB PO SCH ×2 (09:54→16:06)
[2018-05-28] MEDS: HEPARIN SODIUM,PORCINE 5,000 UNIT/ML 1 ML VIAL SQ SCH ×2 (09:54→20:36)
[2018-05-28] MEDS: BETAMETHASONE DIPROPIONATE 0.05% OINTMENT 45 GM TUBE TOPICAL SCH ×2 (09:54→20:36)
[2018-05-28] MEDS: CLOTRIMAZOLE 1% CREAM 15 GM TUBE TOPICAL SCH (09:54)
[2018-05-28] MEDS: LIDOCAINE 5% PATCH TOPICAL SCH (09:54)
[2018-05-28] MEDS: levETIRAcetam 500 MG TAB PO SCH ×2 (09:54→20:36)
[2018-05-28] MEDS: METOPROLOL TARTRATE 50 MG TAB PO SCH ×2 (09:55→20:36)
[2018-05-28 10:05] LABS: Basophils % (A) 0 %; Eosinophils # (A) 0.3 k/uL (0-0.7); Eosinophils % (A) 3 %; HCT 40.9 % (34.0-46.0); HGB 12.8 gm/dL (11.4-16.0); Hypochromasia Slight; Lymphocytes % (A) 22 %; MCH 28.3 pg (25.0-35.0); MCHC 31.4 g/dL (31.0-37.0); MCV 90.1 fL (80.0-100.0); Mean Platelet Volume 6.2; Monocytes # (A) 0.6 k/uL (0-1.0); Monocytes % (A) 6 %; Neutrophils # (A) 6.1 k/uL (1.3-7.7); Neutrophils % (A) 67 %; Platelet Count 239 k/uL (150-450); RBC 4.53 m/uL (3.80-5.40); RDW 14.1 % (11.5-15.5); WBC 9.2 k/uL (3.8-10.6)
[2018-05-28 10:25] LABS: Calcium 8.9 mg/dL (8.4-10.2); Potassium 4.4 mmol/L (3.5-5.1)
--- NOTE | 2018-05-28 13:21 | P.PN ---
Subjective Progress Note Date: 05/28/18 Principal diagnosis: Seizures Recall is a pleasant 57-year-old female continuing be evaluated by the neurology service for seizures. We did find out that she did have a previous history of seizures but had not been on an antiepileptic for seizures and some time. She was doing well on IV Keppra 750 mg every 12 hours, but had one breakthrough seizure last night. You increased her Keppra to 1000 mg every 12 hours and will continue to monitor. Her MRI of the brain showed no acute intracranial abnormalities but did show some nonspecific white matter changes which will be investigated further outpatient area. At the time my exam she is resting comfortably in bed in no acute distress. 05/28/2018 update: There is been no reported seizure activity since my examination yesterday. She is stable on Keppra 1000 mg every 12 hours IV. We can now transitioned to oral equivalent dose. Objective - Vital Signs Vital signs: Vital Signs Temp 97.4 F L 05/28/18 06:30 Pulse 72 05/28/18 06:30 Resp 20 05/28/18 06:30 BP 130/79 05/28/18 06:30 Pulse Ox 92 L 05/28/18 06:30 Intake & Output 05/27/18 05/28/18 05/28/18 18:59 06:59 18:59 Intake Total 100 100 Balance 100 100 Intake: Intake, IV Titration 100 Amount levETIRAcetam IV 750 mg 100 In Sodium Chloride 0.9% 100 ml @ 400 mls/hr IVPB Q12H [facility] Rx#:[id number] Oral 100 Other: Voiding Method Toilet Toilet # Voids 5 1 - Constitutional General appearance: Present: cooperative, no acute distress - EENT Eyes: Present: PERRLA. Absent: abnormal pupil, ptosis ENT: Present: hearing grossly normal - Neck Neck: Present: normal ROM. Absent: rigidity - Respiratory Respiratory: negative: prolonged expiration, prolonged inspiration - Cardiovascular Rhythm: regular - Neurologic Neurologic Comment(s): The patient is alert awake and oriented 3. Speech and language are normal. There is no facial asymmetry. Strength is 5 out of 5 in bilateral upper and lower extremities. There is no sensory deficit. No tremors or seizures are seen. Cranial nerves II through XII are intact globally. - Labs CBC & Chem 7: 05/28/18 09:49 05/28/18 09:49 Labs: Abnormal Lab Results - Last 24 Hours (Table) 05/28/18 Range/Units 09:49 BUN 20 H (7-17) mg/dL Creatinine 1.08 H (0.52-1.04) mg/dL Glucose 143 H (74-99) mg/dL Microbiology - Last 24 Hours (Table) 05/25/18 21:12 Urine Culture - Final Urine,Voided Proteus mirabilis Assessment and Plan (1) Generalized convulsive seizures Current Visit: Yes Status: Acute Code(s): R56.9 - UNSPECIFIED CONVULSIONS SNOMED Code(s): 564640865 (2) Lupus Current Visit: Yes Status: Chronic Code(s): L93.0 - DISCOID LUPUS ERYTHEMATOSUS SNOMED Code(s): 613873031 (3) Hypertension Current Visit: Yes Status: Chronic Code(s): I10 - ESSENTIAL (PRIMARY) HYPERTENSION SNOMED Code(s): 23516720 (4) Hypothyroidism Current Visit: Yes Status: Chronic Code(s): E03.9 - HYPOTHYROIDISM, UNSPECIFIED SNOMED Code(s): 40965095 Plan: The patient seems to be having generalized tonic-clonic seizure activity. Upon further questioning she did reveal that this is not a new onset seizure activity. She had one breakthrough seizure as mentioned above. She will continue Keppra 1000 mg IV twice a day. We can switch this to 1000 mg twice a day oral starting tomorrow morning. See above for her MRI, brain findings. We will see her in outpatient setting to investigate the possibility of demyelinating disease. Continue seizure precautions. Continue neurological checks. An EEG has been performed. We will continue to follow. 05/28/2018 update: The patient is doing well on her adjusted dose of Keppra 1000 mg every 12 hours. She can now be transitioned to the equivalent dose by mouth. Results of her EEG have not posted yet and I will try to get all those today. If her EEG is normal she is discharged from a neurological standpoint. I have performed a history and physical on the above patient. I have reviewed the above note, and agree.
--- NOTE | 2018-05-28 20:42 | PN ---
PROGRESS NOTE DATE OF SERVICE: 05/28/2018 This 57-year-old woman who presented with recurrent seizures has been closely monitored at this time. Urology is following the patient. Keppra dose has been increased. MRI shows white matter lesions. EEG has been mentioned. EXAM: Alert and oriented x2. Pulse 72, blood pressure 120/70, respiration 20, temperature 97.4, pulse ox 98% on room air. HEENT: Conjunctivae normal. Oral mucosa moist. Neck is no jugular venous distention. No carotid bruit. No lymph node enlargement. CARDIOVASCULAR: S1, S2. RESPIRATORY: Breath sounds diminished in the bases. A few scattered rhonchi. No crackles. ABDOMEN: Soft, nontender. LEGS: No edema. NERVOUS SYSTEM: No focal deficits. LAB STUDIES: At this time shows WBC 9.2, hemoglobin 12.8, creatinine 1.08. ASSESSMENT: 1. Generalized tonic-clonic seizures with breakthrough seizures. 2. History of lupus erythematosus. 3. White matter lesions in the MRI, rule out demyelination. 4. Urinary tract infection. 5. History of hypertension. 6. History of degenerative joint disease. 7. History of hypothyroidism. 8. History of thyroid tissues. 9. History of Methicillin-resistant Staphylococcus aureus. 10.Obesity with body mass index of 53.1. RECOMMENDATIONS AND DISCUSSION: I recommend to continue current medical management and symptomatic treatment. Otherwise at this time continue the antiseizure medications. Rheumatology evaluation, neurology evaluation, possible lumbar puncture. Guarded prognosis. Further recommendations to follow. MMODL / IJN: [id number] /
[2018-05-29 00:04] VITALS: RESP 20
[2018-05-29] MEDS: HYDROcodone/APAP 5-325MG 1 EACH TAB PO PRN (05:42)
[2018-05-29 06:19] VITALS: BP 148/74; PULSE 75; TEMP 96.9
[2018-05-29] MEDS: LEVOTHYROXINE 100 MCG TAB PO SCH (06:30)
[2018-05-29 09:49] LABS: Basophils % (A) 0 %; Eosinophils # (A) 0.2 k/uL (0-0.7); Eosinophils % (A) 3 %; HCT 42.4 % (34.0-46.0); HGB 13.5 gm/dL (11.4-16.0); Lymphocytes # (A) 1.5 k/uL (1.0-4.8); Lymphocytes % (A) 19 %; MCH 28.4 pg (25.0-35.0); MCHC 31.7 g/dL (31.0-37.0); MCV 89.3 fL (80.0-100.0); Mean Platelet Volume 6.7; Monocytes # (A) 0.5 k/uL (0-1.0); Monocytes % (A) 7 %; Neutrophils # (A) 5.5 k/uL (1.3-7.7); Neutrophils % (A) 69 %; Platelet Count 291 k/uL (150-450); RBC 4.75 m/uL (3.80-5.40); RDW 14.1 % (11.5-15.5); WBC 7.9 k/uL (3.8-10.6)
[2018-05-29] MEDS: PANTOPRAZOLE 40 MG TABLET PO SCH (10:11)
[2018-05-29] MEDS: ASPIRIN 81 MG PO SCH (10:11)
[2018-05-29] MEDS: METOPROLOL TARTRATE 50 MG TAB PO SCH (10:11)
[2018-05-29] MEDS: FUROSEMIDE 20 MG TAB PO SCH (10:11)
[2018-05-29] MEDS: levETIRAcetam 500 MG TAB PO SCH (10:11)
[2018-05-29 10:12] LABS: Calcium 8.7 mg/dL (8.4-10.2); Potassium 4.7 mmol/L (3.5-5.1)
[2018-05-29] MEDS: HEPARIN SODIUM,PORCINE 5,000 UNIT/ML 1 ML VIAL SQ SCH (10:12)
[2018-05-29] MEDS: LIDOCAINE 5% PATCH TOPICAL SCH (10:12)
--- NOTE | 2018-05-29 14:58 | EEG ---
ELECTROENCEPHALOGRAM REPORT DATE OF SERVICE: 05/26/2018 REASON FOR TESTING: Altered mental status. DESCRIPTION OF THE PROCEDURE: This EEG was performed using a 21 channel digital electroencephalograph, following international 10-20 system. DESCRIPTION OF THE RECORDING: From the beginning of the tracing and with patient's eyes closed, the background rhythm was mostly consisting of 10 Hz alpha frequency in the posterior occipital leads. No obvious asymmetry is seen. Photic stimulation was performed with a minimal driving response seen. No pathological waves were elicited. Hyperventilation was not performed. Occasional movement and lead artifacts are seen. The patient remains awake throughout the tracing. No epileptiform discharges were seen. Her EKG lead showed a regular rate and rhythm. INTERPRETATION: This awake EEG can be considered within normal limits. There was no asymmetry seen. No epileptiform discharges were noticed. The absence of epileptiform discharges does not rule out the diagnosis of epilepsy; therefore clinical correlation is recommended. MMABA / IJFredo: [id number] /
--- NOTE | 2018-05-30 11:22 | DS ---
DISCHARGE SUMMARY DATE OF SERVICE: 05/29/2018 FINAL DIAGNOSES: 1. Generalized tonic-clonic seizures with breakthrough seizures. 2. History of lupus erythematosus. 3. Rule out pseudoseizures. 4. White matter lesion on MRI, rule out demyelination. 5. Urinary tract infection. 6. History of hypertension. 7. History of degenerative joint disease. 8. Hypothyroidism. 9. History of Methicillin-resistant Staphylococcus aureus. 10.Obesity with body mass of 53.1. DISCHARGE DISPOSITION: The patient will be discharged in stable condition with guarded prognosis. Neurology cleared the patient for discharge. HISTORY OF PRESENT ILLNESS: This 57-year-old woman with a past medical history of multiple medical problems admitted with seizures, uncontrolled and as well as breakthrough seizures. The patient was treated symptomatically. Patient improved significantly. Pseudoseizures also suspected. The patient was recommended to follow up with neurologist and possibly monitoring at [facility] as an outpatient. On exam, vital signs are stable. CARDIOVASCULAR: S1, S2 muffled. ABDOMEN: Soft. NERVOUS SYSTEM: No focal deficits. DISCHARGE ADVICE: 1. Diet is cardiac diet. 2. Activity limited until followup. 3. Follow up with Dr. Gil in 2 to 3 days. Medications are as follows: 1. Aspirin 81 mg p.o. daily. 2. Betamethasone application topically. 3. Lasix 50 mg p.o. b.i.d. 4. Neurontin 300 mg p.o. t.i.d. 5. Nizoral 2% one application topical. 6. Synthroid 100 mcg p.o. daily. 7. Lopressor 50 mg p.o. b.i.d. 8. Omeprazole 20 mg p.o. daily. 9. Ceftin 500 mg p.o. b.i.d. for 3 days. 10.Keppra 1000 mg p.o. b.i.d. Follow with Neurology, Dr. Howard as recommended. Once again, the patient will be discharged in a stable condition with guarded prognosis. MMODL / IJN: [id number] /
== END 2018-05-29 12:05 | disposition home or self-care (01) | DRG 101 ==
LOC: EC 16:05 → 4MS4W 18:25
PROVIDERS: ADMIT Hospitalist; ATTEND Hospitalist
DX: G40.401 Other generalized epilepsy and epileptic syndromes, not intractable, with status epilepticus (principal); G37.9 Demyelinating disease of central nervous system, unspecified; Z68.43 Body mass index [BMI] 50.0-59.9, adult; N39.0 Urinary tract infection, site not specified; L93.0 Discoid lupus erythematosus; E03.9 Hypothyroidism, unspecified; Z86.14 Personal history of Methicillin resistant Staphylococcus aureus infection; E66.9 Obesity, unspecified; Z79.82 Long term (current) use of aspirin; Z79.890 Hormone replacement therapy; Z79.899 Other long term (current) drug therapy; I10 Essential (primary) hypertension; G47.30 Sleep apnea, unspecified; M19.90 Unspecified osteoarthritis, unspecified site; Z88.6 Allergy status to analgesic agent; Z88.1 Allergy status to other antibiotic agents; Z88.5 Allergy status to narcotic agent; Z88.0 Allergy status to penicillin; Z88.8 Allergy status to other drugs, medicaments and biological substances; Z82.0 Family history of epilepsy and other diseases of the nervous system; Z82.49 Family history of ischemic heart disease and other diseases of the circulatory system; Z80.9 Family history of malignant neoplasm, unspecified; M46.90 Unspecified inflammatory spondylopathy, site unspecified; E07.9 Disorder of thyroid, unspecified
CPT/HCPCS: 36415; 70450; 70551; 71045; 72110; 80048; 80053; 80171; 80306; 81001; 82550; 82553; 83735; 84484; 85025; 85610; 85652; 86140; 87077; 87086; 87186; 93005; 93306; 93880; 95816; 96360; 99285

== ENCOUNTER 2019-05-14 12:07 | Emergency (ER) | payer MEDICARE ==
[2019-05-14 12:18] VITALS: BP 149/86; PULSE 76; RESP 20; TEMP 97.9
--- NOTE | 2019-05-14 14:32 | ED ---
Skin/Abscess/FB HPI - General Chief complaint: Skin/Abscess/Foreign Body Stated complaint: RT SIDE ABDOMINAL LUMP DRAINING Time Seen by Provider: 05/14/19 12:44 Source: patient Mode of arrival: ambulatory Limitations: no limitations - History of Present Illness Initial comments: 58-year-old female history of diabetes presents emergency by for chief complaint of bump in the right groin region. Patient states she has a painful bump in the right groin region. She states she cannot visualize it well. She said by family that it was red. Patient is concerned as the abscess [facility] Patient denies shaving her pubic hair. Patient denies a fever or night sweats flulike symptoms. Patient states it has been T suturing. Remaining systems negative. Upon arrival patient appears well signs of acute distress. - Related Data Home Medications Medication Instructions Recorded Confirmed Aspirin EC [Ecotrin Low Dose] 81 mg PO DAILY 05/25/18 05/14/19 Betamethasone Dipropionate 1 applic TOPICAL BID 05/25/18 05/14/19 [Betamethasone Dipropionate 0.05%] Furosemide [Lasix] 20 mg PO BID 05/25/18 05/14/19 Ketoconazole 2% Cream [Nizoral 2%] 1 applic TOPICAL BID 05/25/18 05/14/19 Metoprolol Tartrate [Lopressor] 50 mg PO BID 05/25/18 05/14/19 Omeprazole 20 mg PO DAILY 05/25/18 05/14/19 Fluticasone Nasal [place] [Flonase 2 sprays EA NOSTRIL DAILY 05/14/19 05/14/19 Nasal [place]] Hydroxychloroquine Sulfate 200 mg PO BID 05/14/19 05/14/19 [Plaquenil] Levothyroxine Sodium [Synthroid] 75 mcg PO DAILY 05/14/19 05/14/19 Losartan Potassium 100 mg PO DAILY 05/14/19 05/14/19 Previous Rx's Medication Instructions Recorded levETIRAcetam [Keppra] 1,000 mg PO Q12HR #60 tab 05/29/18 Cephalexin [Keflex] 500 mg PO Q6HR 7 Days #28 cap 05/14/19 Allergies Allergy/AdvReac Type Severity Reaction Status Date / Time acetaminophen [From Vicodin] Allergy Unknown Verified 05/14/19 13:10 ampicillin [From Unasyn] Allergy Unknown Verified 05/14/19 13:10 clindamycin Allergy Unknown Verified 05/14/19 13:10 codeine Allergy Unknown Verified 05/14/19 13:10 dicyclomine [From Bentyl] Allergy Unknown Verified 05/14/19 13:10 egg Allergy Unknown Verified 05/14/19 13:10 hydrocodone [From Vicodin] Allergy Unknown Verified 05/14/19 13:10 ibuprofen [From Advil] Allergy Unknown Verified 05/14/19 13:10 latex Allergy Rash/Hives Verified 05/14/19 13:10 lisinopril Allergy Unknown Verified 05/14/19 13:10 magnesium Allergy Unknown Verified 05/14/19 13:10 milk Allergy Unknown Verified 05/14/19 13:10 naproxen Allergy Unknown Verified 05/14/19 13:10 sulbactam [From Unasyn] Allergy Unknown Verified 05/14/19 13:10 sulfamethoxazole Allergy Unknown Verified 05/14/19 13:10 [From Bactrim] trimethoprim [From Bactrim] Allergy Unknown Verified 05/14/19 13:10 wheat Allergy Unknown Verified 05/14/19 13:10 Review of Systems ROS Statement: Those systems with pertinent positive or pertinent negative responses have been documented in the HPI. ROS Other: All systems not noted in ROS Statement are negative. 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 she stated she has had a bx and egd w/dilation.no bx results as of yet". uses cpap machine, upper dental brisge, hiatal hernia, gout feet and rt arm, palpatations. "chronic rash legs,arms" History of Any Multi-Drug Resistant Organisms: MRSA Date of last positivie culture/infection: 2007 MDRO Source:: leg Past Surgical History: Section, Orthopedic Surgery Additional Past Surgical History / Comment(s): right foot, leg. egd/dilation, thyroid bx-no results yet. Past Anesthesia/Blood Transfusion Reactions: No Reported Reaction Additional Past Anesthesia/Blood Transfusion Reaction / Comment(s): cla usterphobia. never had a blood transfusion. Past Psychological History: No Psychological Hx Reported Smoking Status: Never smoker Past Alcohol Use History: None Reported Past Drug Use History: None Reported - Past Family History Mother History Unknown: Yes Additional Family Medical History / Comment(s): pt stated she was adopted at age 5 does'nt kow anything about her mom Father Family Medical History: Cancer, Hypertension, Seizure Disorder Additional Family Medical History / Comment(s): heart problems, brittle bone disease General Exam - General Exam Comments Initial Comments: General: The patient is awake and alert, in no distress, and does not appear acutely ill. Eye: Pupils are equal, round and reactive to light, extra-ocular movements are intact. No nystagmus. There is normal conjunctiva bilaterally. No signs of icterus. Cardiovascular: There is a regular rate and rhythm. No murmur, rub or gallop is appreciated. Respiratory: Lungs are clear to auscultation, respirations are non-labored, br eath sounds are equal. No wheezes, stridor, rales, or rhonchi. Gastrointestinal: Soft, obese non-distended, non-tender abdomen without masses or organomegaly noted. There is no rebound or guarding present. Musculoskeletal: Normal ROM, no tenderness. Strength 5/5. Sensation intact. Pulses equal bilaterally 2+. Neurological: A&O x 3. CN II-XII intact grossly, There are no obvious motor or sensory deficits. Coordination appears grossly intact. Speech is normal. Skin: Skin is warm and dry and no rashes. Multiple carbuncles in the right pubic region, mild redness no large abscess palpable. No lymphdenopathy appreciated. Psychiatric: Cooperative, appropriate mood & affect, normal judgment. Limitations: no limitations Course Vital Signs 05/14/19 12:16 Temperature 97.9 F Pulse Rate 76 Respiratory 20 Rate Blood Pressure 149/86 O2 Sat by Pulse 96 Oximetry Medical Decision Making - Medical Decision Making 58 or female presented for evaluation of lump in right groin. In the pubic area their PCP multiple carbuncles, for uncle. I tried aspiration of the larger lesion to see if there was. When drainage however was not able to receive a large sample enough for culture. Given there is no evidence of abscess of the cellulitis. I recommend patient applied topical [id number] antibiotic warm compresses and take Keflex. Return parameters were discussed as well as importance of primary care follow-up. Patient was discharged. Will discuss the case with attending provider Dr. Garnica Disposition Clinical Impression: Carbuncle and furuncle Disposition: HOME SELF-CARE Condition: Good Instructions (If sedation given, give patient instructions): Furunculosis and Carbunculosis (ED) Additional Instructions: Please use medication as discussed. Please follow-up with family doctor in the next 2 days.. Please return to emergency room if the symptoms increase or worsen or for any other concerns. Prescriptions: Cephalexin [Keflex] 500 mg PO Q6HR 7 Days #28 cap Is patient prescribed a controlled substance at d/c from ED?: No Referrals: Roge Gil MD [Primary Care Provider] - 1-2 days Time of Disposition: 14:31
== END 2019-05-14 14:39 | disposition home or self-care (01) ==
LOC: EC 12:07
DX: L02.231 Carbuncle of abdominal wall (principal); L02.221 Furuncle of abdominal wall; I10 Essential (primary) hypertension; G47.30 Sleep apnea, unspecified; E07.9 Disorder of thyroid, unspecified; E11.9 Type 2 diabetes mellitus without complications; Z79.82 Long term (current) use of aspirin; Z79.899 Other long term (current) drug therapy; Z79.51 Long term (current) use of inhaled steroids; Z79.890 Hormone replacement therapy; Z88.6 Allergy status to analgesic agent; Z88.1 Allergy status to other antibiotic agents; Z88.5 Allergy status to narcotic agent; Z88.8 Allergy status to other drugs, medicaments and biological substances; Z91.012 Allergy to eggs; Z91.040 Latex allergy status; Z91.011 Allergy to milk products; Z88.2 Allergy status to sulfonamides; Z91.018 Allergy to other foods; Z88.0 Allergy status to penicillin
CPT/HCPCS: 99283

== ENCOUNTER 2019-10-10 00:21 | Emergency (ER) | payer MEDICARE ==
[2019-10-10 00:38] VITALS: RESP 18; TEMP 98.1
--- NOTE | 2019-10-10 00:42 | ED ---
Recheck HPI - General Chief Complaint: Recheck/Abnormal Lab/Rx Stated Complaint: High Blood Pressure Time Seen by Provider: 10/10/19 00:42 Source: patient, family Mode of arrival: wheelchair Limitations: no limitations - History of Present Illness Initial Comments: Kenyatta is a pleasant 59-year-old female with a history of hypertension and morbid obesity who presents to the emergency department today for evaluation of a symptomatically hypertension. History is obtained from patient and sister bedside. Patient reports that due to her history of high blood pressure her sister got her blood pressure cuff as a gift and has been encouraging her to check her blood pressure daily like her primary care physician asked her to. Patient reports that this evening she checked her blood pressure noted that it was greater than 170 systolic at which time her sister decided she needed to come the hospital for evaluation. Patient denies any symptoms whatsoever. She denies any headache, vision changes, chest pain, palpitations or shortness of breath, abdominal pain. Patient denies any significant social stressors. She denies missing any doses of her home with Toprol which she takes 50 mg twice daily. - Related Data Home Medications Medication Instructions Recorded Confirmed Aspirin EC [Ecotrin Low Dose] 81 mg PO DAILY 05/25/18 05/14/19 Betamethasone Dipropionate 1 applic TOPICAL BID 05/25/18 05/14/19 [Betamethasone Dipropionate 0.05%] Furosemide [Lasix] 20 mg PO BID 05/25/18 05/14/19 Ketoconazole 2% Cream [Nizoral 2%] 1 applic TOPICAL BID 05/25/18 05/14/19 Metoprolol Tartrate [Lopressor] 50 mg PO BID 05/25/18 05/14/19 Omeprazole 20 mg PO DAILY 05/25/18 05/14/19 Fluticasone Nasal [place] [Flonase 2 sprays EA NOSTRIL DAILY 05/14/19 05/14/19 Nasal [place]] Hydroxychloroquine Sulfate 200 mg PO BID 05/14/19 05/14/19 [Plaquenil] Levothyroxine Sodium [Synthroid] 75 mcg PO DAILY 05/14/19 05/14/19 Losartan Potassium 100 mg PO DAILY 05/14/19 05/14/19 Previous Rx's Medication Instructions Recorded levETIRAcetam [Keppra] 1,000 mg PO Q12HR #60 tab 05/29/18 Cephalexin [Keflex] 500 mg PO Q6HR 7 Days #28 cap 05/14/19 Allergies Allergy/AdvReac Type Severity Reaction Status Date / Time acetaminophen [From Vicodin] Allergy Unknown Verified 10/10/19 00:38 ampicillin [From Unasyn] Allergy Unknown Verified 10/10/19 00:38 clindamycin Allergy Unknown Verified 10/10/19 00:38 codeine Allergy Unknown Verified 10/10/19 00:38 dicyclomine [From Bentyl] Allergy Unknown Verified 10/10/19 00:38 egg Allergy Unknown Verified 10/10/19 00:38 hydrocodone [From Vicodin] Allergy Unknown Verified 10/10/19 00:38 ibuprofen [From Advil] Allergy Unknown Verified 10/10/19 00:38 latex Allergy Rash/Hives Verified 10/10/19 00:38 lisinopril Allergy Unknown Verified 10/10/19 00:38 magnesium Allergy Unknown Verified 10/10/19 00:38 milk Allergy Unknown Verified 10/10/19 00:38 naproxen Allergy Unknown Verified 10/10/19 00:38 sulbactam [From Unasyn] Allergy Unknown Verified 10/10/19 00:38 sulfamethoxazole Allergy Unknown Verified 10/10/19 00:38 [From Bactrim] trimethoprim [From Bactrim] Allergy Unknown Verified 10/10/19 00:38 wheat Allergy Unknown Verified 10/10/19 00:38 Review of Systems ROS Statement: Those systems with pertinent positive or pertinent negative responses have been documented in the HPI. ROS Other: All systems not noted in ROS Statement are negative. 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 she stated she has had a bx and egd w/dilation.no bx results as of yet". uses cpap machine, upper dental brisge, hiatal hernia, gout feet and rt arm, palpatations. "chronic rash legs,arms" History of Any Multi-Drug Resistant Organisms: MRSA Date of last positivie culture/infection: 2007 MDRO Source:: leg Past Surgical History: Section, Orthopedic Surgery, Uterine Ablation Additional Past Surgical History / Comment(s): right foot, leg. egd/dilation, thyroid bx-no results yet. Past Anesthesia/Blood Transfusion Reactions: No Reported Reaction Additional Past Anesthesia/Blood Transfusion Reaction / Comment(s): clausterphobia. never had a blood transfusion. Past Psychological History: No Psychological Hx Reported Smoking Status: Never smoker Past Alcohol Use History: None Reported Past Drug Use History: None Reported - Past Family History Mother History Unknown: Yes Additional Family Medical History / Comment(s): pt stated she was adopted at age 5 does'nt kow anything about her mom Father Family Medical History: Cancer, Hypertension, Seizure Disorder Additional Family Medical History / Comment(s): heart problems, brittle bone disease General Exam - General Exam Comments Initial Comments: Physical Exam GENERAL: Patient is well-developed and well-nourished. Patient is nontoxic and well- hydrated and is in no distress. HENT: Normocephalic, Atraumatic. EYES: PERRL, EOMI PULMONARY: Unlabored respirations. No audible rales rhonchi or wheezing was noted. CARDIOVASCULAR: There is a regular rate and rhythm without any murmurs gallops or rubs. ABDOMEN: Soft and nontender with normal bowel sounds. SKIN: Skin is clear with no lesions or rashes and otherwise unremarkable. : Deferred NEUROLOGIC: Patient is alert and oriented x3. Moving all extremities spontaneously MUSCULOSKELETAL: Normal extremities with adequate strength and full range of motion. No lower extremity swelling or edema. No calf tenderness. PSYCHIATRIC: Normal psychiatric evaluation. Limitations: no limitations Course Vital Signs 10/10/19 10/10/19 00:32 01:39 Temperature 98.1 F Pulse Rate 87 83 Respiratory 18 18 Rate Blood Pressure 169/91 141/78 O2 Sat by Pulse 97 98 Oximetry Medical Decision Making - Medical Decision Making The patient was seen and evaluated, history is obtained from the patient next signs of 59-year-old female with a history of hypertension presenting with asymptomatic hypertension Blood pressure is improving without treatment here in the emergency department, at this time there is no indication for any further workup or treatment. Beth ludwig's agreeable with plan for discharge home and outpatient follow-up with her primary care physician who manages her home antihypertensives. Disposition Clinical Impression: Hypertension Disposition: HOME SELF-CARE Condition: Stable Additional Instructions: Continue to take her home medications as prescribed Contact her primary care physician tomorrow to discuss blood pressure management and establish a follow-up visit for later this week Return to the emergency department if you have any chest pain palpitations headache vision changes shortness breath or any new or concerning symptoms Is patient prescribed a controlled substance at d/c from ED?: No Referrals: Roge Gil MD [Primary Care Provider] - 1-2 days
[2019-10-10 01:40] VITALS: BP 141/78; PULSE 83
== END 2019-10-10 01:40 | disposition home or self-care (01) ==
LOC: EC 00:21
DX: I10 Essential (primary) hypertension (principal); E66.01 Morbid (severe) obesity due to excess calories; M10.9 Gout, unspecified; E07.9 Disorder of thyroid, unspecified; M32.9 Systemic lupus erythematosus, unspecified; M19.90 Unspecified osteoarthritis, unspecified site; G47.30 Sleep apnea, unspecified; Z79.82 Long term (current) use of aspirin; Z79.890 Hormone replacement therapy; Z79.899 Other long term (current) drug therapy; Z88.0 Allergy status to penicillin; Z88.2 Allergy status to sulfonamides; Z88.1 Allergy status to other antibiotic agents; Z88.6 Allergy status to analgesic agent; Z88.8 Allergy status to other drugs, medicaments and biological substances; Z91.011 Allergy to milk products; Z91.040 Latex allergy status; Z88.5 Allergy status to narcotic agent; Z91.012 Allergy to eggs; Z99.89 Dependence on other enabling machines and devices; Z86.14 Personal history of Methicillin resistant Staphylococcus aureus infection; Z68.43 Body mass index [BMI] 50.0-59.9, adult; Z82.49 Family history of ischemic heart disease and other diseases of the circulatory system
CPT/HCPCS: 99283

== ENCOUNTER → 2020-04-17 | Outpatient (CLI) | payer MEDICARE ==
--- NOTE | 2020-04-17 10:42 | US ---
EXAMINATION TYPE: US abdomen complete DATE OF EXAM: 04/17/2020 COMPARISON: NONE CLINICAL HISTORY: R10.11 RUQ ABD PAIN. EXAM MEASUREMENTS: Liver Length: 19.5 cm Gallbladder Wall: 0.2 cm CBD: 0.4 cm Spleen: 10.6 cm Right Kidney: 9.5 x 3.7 x 4.2 cm Left Kidney: 11.1 x 4.5 x 4.8 cm Gross morbid obesity, technically difficult severe Pancreas: Obscured by bowel gas/obesity Liver: unable to penetrate, very limited visualization, fatty infiltrate Gallbladder: cholelithiasis, probable stone in neck Evidence for sonographic Velasco's sign: no CBD: limited visualization, appears wnl as seen Spleen: limited visualization, appears wnl as seen Right Kidney: limited visualization, appears wnl as seen Left Kidney: not well seen Upper IVC: limited visualization, appears wnl as seen Abd Aorta: Obscured by overlying bowel gas/obesity The intrahepatic portion of the IVC and proximal abdominal aorta are within normal limits. Common bi le duct is unremarkable. The visualized portions of the pancreas are homogenous. The spleen is unre markable. Kidneys are symmetric and free of hydronephrosis. No renal lesions are seen. IMPRESSION: 1. Cholelithiasis. 2. Fatty liver.
== END | disposition home or self-care (01) ==
LOC: RADUSWWP 09:01
PROVIDERS: ATTEND Family Medicine
DX: K80.20 Calculus of gallbladder without cholecystitis without obstruction (principal); K76.0 Fatty (change of) liver, not elsewhere classified
CPT/HCPCS: 76700

== ENCOUNTER 2020-10-27 16:20 | Emergency (ER) | payer MEDICARE ==
[2020-10-27] MEDS ORDERED: ALBUTEROL HFA INHALER INHALATION STA (16:47)
--- NOTE | 2020-10-27 16:51 | ED ---
General Adult HPI - General Chief complaint: Upper Respiratory Infection Stated complaint: cough Time Seen by Provider: 10/27/20 16:36 Source: patient, RN notes reviewed Mode of arrival: EMS Limitations: no limitations - History of Present Illness Initial comments: Patient is a pleasant 60-year-old female presenting to the emergency Department with cough. Patient states onset of symptoms was 3 or 4 days ago. Patient was exposed to somebody with Covid. Patient has no fevers however has had some chills and myalgias. Patient has had some fatigue. Mild rhinorrhea. Mild dyspnea. Cough is dry nonproductive. Patient has mild nausea. No vomiting. No diarrhea. - Related Data Home Medications Medication Instructions Recorded Confirmed Metoprolol Tartrate [Lopressor] 50 mg PO BID 05/25/18 10/27/20 Cetirizine HCl [Zyrtec] 10 mg PO DAILY PRN 10/27/20 10/27/20 Levothyroxine Sodium [Synthroid] 50 mcg PO DAILY 10/27/20 10/27/20 hydrALAZINE HCL [Apresoline] 50 mg PO TID 10/27/20 10/27/20 levETIRAcetam [Keppra] 1,000 mg PO QAM 10/27/20 10/27/20 levETIRAcetam [Keppra] 2,000 mg PO HS 10/27/20 10/27/20 Allergies Allergy/AdvReac Type Severity Reaction Status Date / Time ampicillin [From Unasyn] Allergy Rash/Hives Verified 10/27/20 18:51 clindamycin Allergy Rash/Hives Verified 10/27/20 18:51 codeine Allergy Rapid Verified 10/27/20 18:51 Heart Rate dicyclomine [From Bentyl] Allergy Rash/Hives Verified 10/27/20 18:51 egg Allergy Unknown Verified 10/27/20 18:51 hydrocodone [From Vicodin] Allergy Vomiting Verified 10/27/20 18:51 ibuprofen [From Advil] Allergy Swelling Verified 10/27/20 18:51 latex Allergy Rash/Hives Verified 10/27/20 18:51 lisinopril Allergy Swelling Verified 10/27/20 18:51 magnesium Allergy Unknown Verified 10/27/20 18:51 milk Allergy Unknown Verified 10/27/20 18:51 naproxen Allergy Swelling Verified 10/27/20 18:51 sulbactam [From Unasyn] Allergy Rash/Hives Verified 10/27/20 18:51 sulfamethoxazole Allergy upset Verified 10/27/20 18:51 [From Bactrim] stomach trimethoprim [From Bactrim] Allergy upset Verified 10/27/20 18:51 stomach wheat Allergy Unknown Verified 10/27/20 18:51 Review of Systems ROS Statement: Those systems with pertinent positive or pertinent negative responses have been documented in the HPI. ROS Other: All systems not noted in ROS Statement are negative. Constitutional: Reports: chills. Denies: fever Eyes: Denies: eye pain ENT: Denies: ear pain Respiratory: Reports: as per HPI, cough Cardiovascular: Denies: chest pain Endocrine: Reports: fatigue Gastrointestinal: Reports: nausea. 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 she stated she has had a bx and egd w/dilation.no bx results as of yet". uses cpap machine, upper dental brisge, hiatal hernia, gout feet and rt arm, palpatations. "chronic rash legs,arms" History of Any Multi-Drug Resistant Organisms: MRSA Date of last positivie culture/infection: 2007 MDRO Source:: leg Past Surgical History: Section, Orthopedic Surgery, Uterine Ablation Additional Past Surgical History / Comment(s): right foot, leg. egd/dilation, thyroid bx-no results yet. Past Anesthesia/Blood Transfusion Reactions: No Reported Reaction Additional Past Anesthesia/Blood Transfusion Reaction / Comment(s): clausterphobia. never had a blood transfusion. Past Psychological History: Anxiety Smoking Status: Former smoker Past Alcohol Use History: Rare Past Drug Use History: None Reported - Past Family History Mother History Unknown: Yes Additional Family Medical History / Comment(s): pt stated she was adopted at age 5 does'nt kow anything about her mom Father Family Medical History: Cancer, Hypertension, Seizure Disorder Additional Family Medical History / Comment(s): heart problems, brittle bone disease General Exam Limitations: no limitations General appearance: alert, in no apparent distress Head exam: Present: normocephalic Eye exam: Present: normal appearance ENT exam: Present: normal oropharynx Neck exam: Present: normal inspection Respiratory exam: Present: normal lung sounds bilaterally Cardiovascular Exam: Present: regular rate, normal rhythm GI/Abdominal exam: Present: soft. Absent: tenderness, guarding Extremities exam: Present: normal inspection. Absent: pedal edema, calf tenderness Neurological exam: Present: alert Psychiatric exam: Present: normal affect, normal mood Skin exam: Present: normal color Course Vital Signs 10/27/20 10/27/20 16:29 19:05 Temperature 99.8 F H Pulse Rate 88 91 Respiratory 20 20 Rate Blood Pressure 156/83 145/75 O2 Sat by Pulse 99 94 L Oximetry EKG Findings - EKG Comments: EKG Findings:: Normal sinus rhythm at 85. VA 158. QRS 80. QT 376. QTc 447. Left axis. Q wave in lead V3. No acute ST change. Medical Decision Making - Medical Decision Making Patient has history of lupus and is on Paxil. Patient felt to benefit from BAM. Patient updated and agreeable. Patient be discharged following this. - Lab Data Result diagrams: 10/27/20 18:11 10/27/20 18:11 Lab Results 10/27/20 10/27/20 10/27/20 Range/Units 17:06 18:11 18:11 WBC 6.7 (3.8-10.6) k/uL RBC 4.74 (3.80-5.40) m/uL Hgb 13.6 (11.4-16.0) gm/dL Hct 42.4 (34.0-46.0) % MCV 89.5 (80.0-100.0) fL MCH 28.8 (25.0-35.0) pg MCHC 32.2 (31.0-37.0) g/dL RDW 13.8 (11.5-15.5) % Plt Count 238 (150-450) k/uL MPV 6.1 Neutrophils % 65 % Lymphocytes % 21 % Monocytes % 10 % Eosinophils % 2 % Basophils % 1 % Neutrophils # 4.3 (1.3-7.7) k/uL Lymphocytes # 1.4 (1.0-4.8) k/uL Monocytes # 0.7 (0-1.0) k/uL Eosinophils # 0.1 (0-0.7) k/uL Basophils # 0.1 (0-0.2) k/uL PT 9.8 (9.0-12.0) sec INR 0.9 (<1.2) Sodium (137-145) mmol/L Potassium (3.5-5.1) mmol/L Chloride (98-107) mmol/L Carbon Dioxide (22-30) mmol/L Anion Gap mmol/L BUN (7-17) mg/dL Creatinine (0.52-1.04) mg/dL Est GFR (CKD-EPI)AfAm (>60 ml/min/1.73 sqM) Est GFR (CKD-EPI)NonAf (>60 ml/min/1.73 sqM) Glucose (74-99) mg/dL Plasma Lactic Acid Laith (0.7-2.0) mmol/L Calcium (8.4-10.2) mg/dL Magnesium (1.6-2.3) mg/dL Total Bilirubin (0.2-1.3) mg/dL AST (14-36) U/L ALT (4-34) U/L Alkaline Phosphatase (38-126) U/L Lactate Dehydrogenase (313-618) U/L C-Reactive Protein (<10.0) mg/L Total Protein (6.3-8.2) g/dL Albumin (3.5-5.0) g/dL Coronavirus (PCR) Detected A (Not Detectd) 10/27/20 10/27/20 Range/Units 18:11 18:11 WBC (3.8-10.6) k/uL RBC (3.80-5.40) m/uL Hgb (11.4-16.0) gm/dL Hct (34.0-46.0) % MCV (80.0-100.0) fL MCH (25.0-35.0) pg MCHC (31.0-37.0) g/dL RDW (11.5-15.5) % Plt Count (150-450) k/uL MPV Neutrophils % % Lymphocytes % % Monocytes % % Eosinophils % % Basophils % % Neutrophils # (1.3-7.7) k/uL Lymphocytes # (1.0-4.8) k/uL Monocytes # (0-1.0) k/uL Eosinophils # (0-0.7) k/uL Basophils # (0-0.2) k/uL PT (9.0-12.0) sec INR (<1.2) Sodium 136 L (137-145) mmol/L Potassium 4.8 (3.5-5.1) mmol/L Chloride 97 L (98-107) mmol/L Carbon Dioxide 34 H (22-30) mmol/L Anion Gap 5 mmol/L BUN 13 (7-17) mg/dL Creatinine 0.83 (0.52-1.04) mg/dL Est GFR (CKD-EPI)AfAm >90 (>60 ml/min/1.73 sqM) Est GFR (CKD-EPI)NonAf 78 (>60 ml/min/1.73 sqM) Glucose 97 (74-99) mg/dL Plasma Lactic Acid Laith 1.2 (0.7-2.0) mmol/L Calcium 9.2 (8.4-10.2) mg/dL Magnesium 2.1 (1.6-2.3) mg/dL Total Bilirubin 0.2 (0.2-1.3) mg/dL AST 24 (14-36) U/L ALT 15 (4-34) U/L Alkaline Phosphatase 114 (38-126) U/L Lactate Dehydrogenase 397 (313-618) U/L C-Reactive Protein 16.0 H (<10.0) mg/L Total Protein 6.5 (6.3-8.2) g/dL Albumin 3.9 (3.5-5.0) g/dL Coronavirus (PCR) (Not Detectd) - Radiology Data Radiology results: image reviewed (Chest x-ray shows no acute process) Disposition Clinical Impression: COVID-19 Disposition: HOME SELF-CARE Condition: Stable Instructions (If sedation given, give patient instructions): Viral Syndrome ( ED) Additional Instructions: Please follow-up with primary care physician in the next 24 hours for recheck. Return for difficulty in breathing, not tolerating oral intake or concerns for dehydration, uncontrolled fevers, worsening symptoms or any other concerns. [id number] Tylenol as needed. Xvpf-zfd-fluxaud vitamin C, vitamin D, and zinc. Is patient prescribed a controlled substance at d/c from ED?: No Referrals: Roge Gil MD [Primary Care Provider] - 1-2 days Time of Disposition: 19:40
--- NOTE | 2020-10-27 18:18 | XR ---
EXAMINATION TYPE: XR chest 1V portable DATE OF EXAM: 10/27/2020 COMPARISON: 05/25/2018. HISTORY: Cough. TECHNIQUE: Single frontal view of the chest is obtained. FINDINGS: There is no focal air space opacity, pleural effusion, or pneumothorax seen. The cardiac silhouette size is within normal limits. The osseous structures are intact. IMPRESSION: No acute process.
[2020-10-27 18:31] LABS: Basophils # (A) 0.1 k/uL (0-0.2); Basophils % (A) 1 %; Eosinophils # (A) 0.1 k/uL (0-0.7); Eosinophils % (A) 2 %; HCT 42.4 % (34.0-46.0); HGB 13.6 gm/dL (11.4-16.0); Lymphocytes # (A) 1.4 k/uL (1.0-4.8); Lymphocytes % (A) 21 %; MCH 28.8 pg (25.0-35.0); MCHC 32.2 g/dL (31.0-37.0); MCV 89.5 fL (80.0-100.0); Mean Platelet Volume 6.1; Monocytes # (A) 0.7 k/uL (0-1.0); Monocytes % (A) 10 %; Neutrophils # (A) 4.3 k/uL (1.3-7.7); Neutrophils % (A) 65 %; Platelet Count 238 k/uL (150-450); RBC 4.74 m/uL (3.80-5.40); RDW 13.8 % (11.5-15.5); WBC 6.7 k/uL (3.8-10.6)
[2020-10-27 18:37] LABS: INR 0.9 (<1.2); Prothrombin Time 9.8 sec (9.0-12.0)
[2020-10-27 18:45] LABS: ALT 15 U/L (4-34); AST 24 U/L (14-36); African American GFR (CKD) >90 (>60 ml/min/1.73 sqM); Albumin 3.9 g/dL (3.5-5.0); Alkaline Phosphatase 114 U/L (38-126); Anion Gap 5 mmol/L; Blood Urea Nitrogen 13 mg/dL (7-17); Calcium 9.2 mg/dL (8.4-10.2); Carbon Dioxide 34 mmol/L (22-30); Chloride 97 mmol/L (98-107); Glucose 97 mg/dL (74-99); LDH 397 U/L (313-618); Magnesium 2.1 mg/dL (1.6-2.3); Non-African American GFR(CKD) 78 (>60 ml/min/1.73 sqM); Potassium 4.8 mmol/L (3.5-5.1); Sodium 136 mmol/L (137-145); Total Bilirubin 0.2 mg/dL (0.2-1.3); Total Protein 6.5 g/dL (6.3-8.2)
[2020-10-27] MEDS ORDERED: BAMLANIVIMAB 700 MG in SODIUM CHLORIDE 0.9% 50 ML IVPB ONE (20:00)
[2020-10-27 20:39] VITALS: RESP 18
[2020-10-27 22:10] VITALS: BP 146/83; PULSE 92; TEMP 98.9
[2020-10-28 03:16] LABS: Ferritin 72.9 ng/mL (10.0-291.0)
== END 2020-10-27 22:09 | disposition home or self-care (01) ==
LOC: EC 16:20
DX: U07.1 COVID-19 (principal); I10 Essential (primary) hypertension; E07.9 Disorder of thyroid, unspecified; M19.90 Unspecified osteoarthritis, unspecified site; G40.909 Epilepsy, unspecified, not intractable, without status epilepticus; Z87.891 Personal history of nicotine dependence
CPT/HCPCS: 36415; 94640; 93005; 80053; 82728; 83605; 83615; 83735; 85025; 85610; 86140; 87040; 84145; 87635; 71045; 99284; Q0239

== ENCOUNTER → 2020-11-27 | Outpatient (CLI) | payer MEDICARE ==
--- NOTE | 2020-11-27 12:37 | XR ---
EXAMINATION TYPE: XR Hip Complete RT DATE OF EXAM: 11/27/2020 CLINICAL HISTORY: Pain from falling injury. TECHNIQUE: AP and frogleg views of the right hip are obtained. COMPARISON: None. FINDINGS: There is no acute fracture/dislocation evident in the right hip. Mild axial joint space lo ss and acetabular spurring. Mild to moderate head and neck collar spurring in the femoral head. Overl pamela soft tissue is unremarkable. IMPRESSION: As above.
--- NOTE | 2020-11-27 12:48 | XR ---
EXAMINATION TYPE: XR hand complete bilateral DATE OF EXAM: 11/27/2020 CLINICAL HISTORY: Pain after fall injury. TECHNIQUE: Frontal, lateral and oblique images of the bilateral hands are obtained. COMPARISON: None. FINDINGS: There is no acute fracture/dislocation evident in either hand. Mild to moderate narrowing throughout the PIP and DIP joints of the bilateral phalanges. Relative sparing of the MCP joints bila terally. Mild to moderate diffuse soft tissue swelling greatest near proximal phalanx level of the se cond through fourth digits bilaterally greatest at level of third digit involved hands. Third finger left hand shows prominent spur along the dorsal aspect and subtle irregularities along the radial asp ect. Mild to moderate narrowing and spurring of base of first metacarpal is seen bilaterally. IMPRESSION: There is no acute fracture or dislocation in either hand.
== END | disposition home or self-care (01) ==
LOC: RADXRMAIN 11:25
PROVIDERS: ATTEND Family Medicine
DX: M25.751 Osteophyte, right hip (principal); M25.851 Other specified joint disorders, right hip; M79.642 Pain in left hand; M79.641 Pain in right hand
CPT/HCPCS: 73502

== ENCOUNTER → 2021-01-15 | Outpatient (CLI) | payer MEDICARE ==
[2021-01-16 00:20] LABS: African American GFR (CKD) 94.2 (60.0-200.0); Albumin 4.3 g/dL (3.80-4.90); Albumin/Globulin Ratio 1.65 (1.60-3.17); Anion Gap 12.1 mmol/L (4.00-12.00); BUN/Creat Ratio 16.25 Ratio (12.00-20.00); Carbon Dioxide 27.9 mmol/L (21.6-31.8); Globulin 2.6 g/dL (1.6-3.3); Non-African American GFR(CKD) 81.3 (60.0-200.0); Potassium 4.9 mmol/L (3.5-5.5); Total Bilirubin 0.5 mg/dL (0.2-1.2); Total Protein 6.9 g/dL (6.2-8.2)
== END | disposition home or self-care (01) ==
LOC: LABWHC1 13:59
PROVIDERS: ATTEND Internal Medicine Interventional Cardiology
DX: R06.00 Dyspnea, unspecified (principal); R00.2 Palpitations
CPT/HCPCS: 36415; 80053; 83880; 84443

== ENCOUNTER → 2021-02-09 | Outpatient (CLI) | payer MEDICARE ==
[2021-02-09 14:51] LABS: African American GFR (CKD) 81.7 (60.0-200.0); Albumin 4.4 g/dL (3.80-4.90); Albumin/Globulin Ratio 1.76 (1.60-3.17); Anion Gap 12.6 mmol/L (4.00-12.00); BUN/Creat Ratio 16.67 Ratio (12.00-20.00); Calcium 9.4 mg/dL (8.7-10.3); Carbon Dioxide 29.4 mmol/L (21.6-31.8); Chol/HDL Ratio 3.14; Globulin 2.5 g/dL (1.6-3.3); LDL Cholesterol,Calculated 106.2 mg/dL (0.0-131.0); Non-African American GFR(CKD) 70.5 (60.0-200.0); Potassium 4.9 mmol/L (3.5-5.5); Total Bilirubin 0.4 mg/dL (0.3-1.2); Total Protein 6.9 g/dL (6.2-8.2); VLDL Calculation 28.8 mg/dL (5.00-40.00)
[2021-02-09 15:01] LABS: T4, Free (Free Thyroxine) 1.6 ng/dL (0.80-1.80)
[2021-02-09 15:04] LABS: Folate, Serum 6.3 ng/mL
[2021-02-12 07:43] LABS: Vit B1(Thiamine) 60 ug/L (38-122)
[2021-02-14 19:06] LABS: Nicotinamide None Detected; Nicotinic Acid None Detected; Nicotinuric Acid None Detected
== END | disposition home or self-care (01) ==
LOC: LABWHC1 10:04
PROVIDERS: ATTEND Psychiatry & Neurology Pain Medicine
DX: E55.9 Vitamin D deficiency, unspecified (principal); H53.9 Unspecified visual disturbance
CPT/HCPCS: 36415; 80053; 80061; 82306; 82607; 82746; 84207; 84425; 84439; 84443; 84481; 84591

== ENCOUNTER → 2021-04-15 | Outpatient (CLI) | payer MEDICARE, OTHER ==
[2021-04-16 02:28] LABS: African American GFR (CKD) 81.7 (60.0-200.0); Anion Gap 12.8 mmol/L (4.00-12.00); Carbon Dioxide 31.2 mmol/L (21.6-31.8); Non-African American GFR(CKD) 70.5 (60.0-200.0); Potassium 4.6 mmol/L (3.5-5.5)
== END | disposition home or self-care (01) ==
LOC: LABWHC1 10:56
PROVIDERS: ATTEND Internal Medicine Interventional Cardiology
DX: I10 Essential (primary) hypertension (principal)
CPT/HCPCS: 36415; 80051; 82565; 84520

== ENCOUNTER 2021-04-27 02:28 | Inpatient (IN) | payer MEDICARE, OTHER ==
[2021-04-27] MEDS ORDERED: ONDANSETRON 4 MG/2 ML VIAL IVP STA (02:41)
[2021-04-27 03:07] LABS: Basophils % (A) 0 %; Eosinophils # (A) 0.2 k/uL (0-0.7); Eosinophils % (A) 1 %; HCT 43.5 % (34.0-46.0); HGB 15.2 gm/dL (11.4-16.0); Lymphocytes # (A) 1.3 k/uL (1.0-4.8); Lymphocytes % (A) 8 %; MCH 29.8 pg (25.0-35.0); MCV 85.4 fL (80.0-100.0); Mean Platelet Volume 6.5; Monocytes # (A) 0.6 k/uL (0-1.0); Monocytes % (A) 4 %; Neutrophils # (A) 13.6 k/uL (1.3-7.7); Neutrophils % (A) 86 %; Platelet Count 339 k/uL (150-450); RDW 14.3 % (11.5-15.5); WBC 15.9 k/uL (3.8-10.6)
[2021-04-27 03:34] LABS: African American GFR (CKD) >90 (>60 ml/min/1.73 sqM); Anion Gap 13 mmol/L; Blood Urea Nitrogen 11 mg/dL (7-17); Calcium 9.2 mg/dL (8.4-10.2); Carbon Dioxide 28 mmol/L (22-30); Chloride 77 mmol/L (98-107); Glucose 134 mg/dL (74-99); Non-African American GFR(CKD) >90 (>60 ml/min/1.73 sqM)
[2021-04-27 03:58] LABS: Potassium 4.4 mmol/L (3.5-5.1); Sodium 118 mmol/L (137-145)
[2021-04-27] MEDS ORDERED: SODIUM CHLORIDE 0.9% 1,000 ML IV ONE (04:21)
--- NOTE | 2021-04-27 04:21 | CT ---
EXAMINATION TYPE: CT brain wo con DATE OF EXAM: 04/27/2021 COMPARISON: 05/25/2018 HISTORY: BANDA CT DLP: 1131.4 mGycm Automated exposure control for dose reduction was used. Ventricles have normal size. There is no mass effect nor midline shift. There is hyperostosis frontal is. Calvarium is intact. The skull base is intact. There is normal aeration of the mastoid sinuses. S jillian turcica appears normal. IMPRESSION: Negative unenhanced head CT scan. No adverse change.
[2021-04-27] MEDS ORDERED: ACETAMINOPHEN TAB 325 MG TAB PO PRN (06:16)
[2021-04-27] MEDS ORDERED: NALOXONE 0.4 MG/ML 1 ML VIAL IV PRN (06:16)
[2021-04-27] MEDS: SODIUM CHLORIDE 0.9% 1,000 ML IV SCH ×2 (07:24→20:16)
[2021-04-27 09:23] LABS: Creatinine,Urine Random 58.2 mg/dL
[2021-04-27] MEDS ORDERED: PANTOPRAZOLE 40 MG/10 ML VIAL IVP SCH (10:15)
[2021-04-27 11:17] LABS: African American GFR (CKD) >90 (>60 ml/min/1.73 sqM); Anion Gap 9 mmol/L; Blood Urea Nitrogen 10 mg/dL (7-17); Calcium 8.7 mg/dL (8.4-10.2); Carbon Dioxide 31 mmol/L (22-30); Chloride 77 mmol/L (98-107); Glucose 148 mg/dL (74-99); Non-African American GFR(CKD) >90 (>60 ml/min/1.73 sqM); Potassium 4.2 mmol/L (3.5-5.1)
[2021-04-27] MEDS ORDERED: FLUTICASONE 50MCG/SPRAY NASAL 16GM EA NOSTRIL PRN (11:25)
[2021-04-27 11:26] LABS: Sodium 117 mmol/L (137-145)
--- NOTE | 2021-04-27 11:37 | P.HPIM ---
History of Present Illness Patient is a pleasant 60-year-old female came in with compensative nausea vomiting headache be started last night headache was severe on the top of the head which resolved at this time nausea vomiting improved as well but patient is still with nauseous. Patient denied any fever chills. Patient had history of a pseudoaneurysm the past patient had a CT of the head which did not show any significant abnormality. Patient is found to be severely hyponatremic with serum sodium of 118. I do not have any urine sodium but urine osmolality is 488 when serum osmolality is 248. Patient does take hydrocodone thiazide which can give this picture. Patient is also on Trileptal which can cause syndrome of inappropriate area secretion patient does have leukocytosis which appears to be reactive, patient was receiving IV fluids since last night upon the decision to per hour I'll repeat basic metabolic profile to see the sodium trend. Patient will be continued on Trileptal and Keppra for now. REVIEW OF SYSTEMS: CONSTITUTIONAL: No fever, no malaise, no fatigue. HEENT: No recent visual problems or hearing problems. Denied any sore throat. CARDIOVASCULAR: No chest pain, orthopnea, PND, no palpitations, no syncope. PULMONARY: No shortness of breath, no cough, no hemoptysis. GASTROINTESTINAL: No diarrhea,, no abdominal pain. NEUROLOGICAL: no weakness, no numbness. HEMATOLOGICAL: Denies any bleeding or petechiae. GENITOURINARY: Denies any burning micturition, frequency, or urgency. MUSCULOSKELETAL/RHEUMATOLOGICAL: Denies any joint pain, swelling, or any muscle pain. ENDOCRINE: Denies any polyuria or polydipsia. The rest of the 14-point review of systems is negative. PHYSICAL EXAMINATION: GENERAL: The patient is alert and oriented x3, not in any acute distress. Well developed, well nourished. HEENT: Pupils are round and equally reacting to light. EOMI. No scleral icterus. No conjunctival pallor. Normocephalic, atraumatic. No pharyngeal erythema. No thyromegaly. CARDIOVASCULAR: S1 and S2 present. No murmurs, rubs, or gallops. PULMONARY: Chest is clear to auscultation, no wheezing or crackles. ABDOMEN: Soft, nontender, nondistended, normoactive bowel sounds. No palpable organomegaly. MUSCULOSKELETAL: No joint swelling or deformity. EXTREMITIES: No cyanosis, clubbing, does have 1+ pitting pedal edema in bilateral lower extremity is NEUROLOGICAL: Gross neurological examination did not reveal any focal deficits. SKIN: No rashes. Assessment and plan -Hyponatremia: It appears to be secondary to diuretics which will be held and will continue Trileptal for now nephrology will be consulted will recheck the serum sodium patient was receiving IV fluids since the last night. -Leukocytosis reactive and secondary to nausea vomiting -nausea vomiting may be related to hyponatremia will continue to monitor patient denied any abdominal pain. No evidence of intracranial bleed at this time -History of seizure disorder patient will be resumed on her antiseizure medications next and-obesity, sleep apnea can use CPAP machine next and- hypothyroidism next and-osteoarthritis -Anxiety disorder -Hypertension DVT prophylaxis: Subcutaneous Lovenox Past Medical History Past Medical History: Hypertension, Osteoarthritis (OA), Seizure Disorder, Sleep Apnea/CPAP/BIPAP, Thyroid Disorder Additional Past Medical History / Comment(s): lupus, pt stated "she has thyroid masses one of which overllaps esophagus. she stated she has had a bx and egd w/dilation.no bx results as of yet". uses cpap machine, upper dental brisge, hiatal hernia, gout feet and rt arm, palpatations. "chronic rash legs,arms". brain aneryusm History of Any Multi-Drug Resistant Organisms: MRSA Date of last positivie culture/infection: 2007 MDRO Source:: leg Past Surgical History: Section, Orthopedic Surgery, Uterine Ablation Additional Past Surgical History / Comment(s): right foot, leg. egd/dilation, thyroid bx-no results yet. Past Anesthesia/Blood Transfusion Reactions: No Reported Reaction Additional Past Anesthesia/Blood Transfusion Reaction / Comment(s): clauste rphobia. never had a blood transfusion. Past Psychological History: Anxiety Smoking Status: Former smoker Past Alcohol Use History: Rare Past Drug Use History: None Reported - Past Family History Mother History Unknown: Yes Additional Family Medical History / Comment(s): pt stated she was adopted at age 5 does'nt kow anything about her mom Father Family Medical History: Cancer, Hypertension, Seizure Disorder Additional Family Medical History / Comment(s): heart problems, brittle bone disease Medications and Allergies Home Medications Medication Instructions Recorded Confirmed Type Metoprolol Tartrate [Lopressor] 50 mg PO BID 05/25/18 04/27/21 History Cetirizine HCl [Zyrtec] 10 mg PO DAILY PRN 10/27/20 04/27/21 History Levothyroxine Sodium [Synthroid] 50 mcg PO DAILY 10/27/20 04/27/21 History hydrALAZINE HCL [Apresoline] 50 mg PO BID 10/27/20 04/27/21 History levETIRAcetam [Keppra] 1,000 mg PO DAILY 10/27/20 04/27/21 History levETIRAcetam [Keppra] 2,000 mg PO HS 10/27/20 04/27/21 History Aspirin EC [Ecotrin Low Dose] 81 mg PO DAILY 04/27/21 04/27/21 History Fluticasone Nasal [place] [Flonase 2 spr EA NOSTRIL DAILY PRN 04/27/21 04/27/21 History Nasal [place]] OXcarbazepine [Trileptal] 300 mg PO BID 04/27/21 04/27/21 History OXcarbazepine [Trileptal] 600 mg PO BID 04/27/21 04/27/21 History amLODIPine [Norvasc] 5 mg PO BID 04/27/21 04/27/21 History hydroCHLOROthiazide [Hydrodiuril] 25 mg PO DAILY 04/27/21 04/27/21 History Allergies Allergy/AdvReac Type Severity Reaction Status Date / Time ampicillin [From Unasyn] Allergy Rash/Hives Verified 04/27/21 07:28 clindamycin Allergy Rash/Hives Verified 04/27/21 07:28 codeine Allergy Rapid Verified 04/27/21 07:28 Heart Rate dicyclomine [From Bentyl] Allergy Rash/Hives Verified 04/27/21 07:28 egg Allergy Unknown Verified 04/27/21 07:28 hydrocodone [From Vicodin] Allergy Vomiting Verified 04/27/21 07:28 ibuprofen [From Advil] Allergy Swelling Verified 04/27/21 07:28 latex Allergy Rash/Hives Verified 04/27/21 07:28 lisinopril Allergy Swelling Verified 04/27/21 07:28 magnesium Allergy Unknown Verified 04/27/21 07:28 milk Allergy Unknown Verified 04/27/21 07:28 naproxen Allergy Swelling Verified 04/27/21 07:28 sulbactam [From Unasyn] Allergy Rash/Hives Verified 04/27/21 07:28 sulfamethoxazole Allergy upset Verified 04/27/21 07:28 [From Bactrim] stomach trimethoprim [From Bactrim] Allergy upset Verified 04/27/21 07:28 stomach wheat Allergy Unknown Verified 04/27/21 07:28 Physical Exam Vitals: Vital Signs Temp Pulse Resp BP Pulse Ox 04/27/21 07:57 18 04/27/21 06:55 80 20 152/77 95 04/27/21 05:42 78 20 140/86 96 04/27/21 04:32 73 20 152/86 95 04/27/21 03:08 72 20 152/85 95 04/27/21 02:29 97.4 F L 73 18 167/90 96 Intake and Output 04/26/21 04/27/21 04/27/21 22:59 06:59 14:59 Other: Weight 138.346 kg Results CBC & Chem 7: 04/27/21 02:58 04/27/21 10:41 Labs: Abnormal Lab Results - Last 24 Hours (Table) 04/27/21 04/27/21 04/27/21 Range/Units 02:58 02:58 02:58 WBC 15.9 H (3.8-10.6) k/uL Neutrophils # 13.6 H (1.3-7.7) k/uL Sodium 118 L* (137-145) mmol/L Chloride 77 L (98-107) mmol/L Carbon Dioxide (22-30) mmol/L Glucose 134 H (74-99) mg/dL Osmolality 248 L* (280-301) mosm/kg 04/27/21 Range/Units 10:41 WBC (3.8-10.6) k/uL Neutrophils # (1.3-7.7) k/uL Sodium 117 L* (137-145) mmol/L Chloride 77 L (98-107) mmol/L Carbon Dioxide 31 H (22-30) mmol/L Glucose 148 H (74-99) mg/dL Osmolality (280-301) mosm/kg
[2021-04-27] MEDS: HYDROcodone/APAP 5-325MG 1 EACH TAB PO PRN ×2 (11:55→20:40)
[2021-04-27] MEDS: levETIRAcetam 500 MG TAB PO SCH ×2 (12:14→20:23)
[2021-04-27] MEDS: amLODIPine 5 MG TAB PO SCH ×2 (12:14→20:20)
[2021-04-27] MEDS ORDERED: FUROSEMIDE 10 MG/ML 4 ML VIAL IV STA (16:31)
--- NOTE | 2021-04-27 17:25 | CONS ---
CONSULTATION REASON FOR CONSULT: Hyponatremia. HISTORY OF PRESENT ILLNESS: The patient is a 60-year-old female who has a history of hypertension and was admitted to the hospital with complaints of nausea, vomiting, headache, and patient states that she felt funny in the head. She denied any significant numbness or tingling. The patient was noted to have a serum sodium of 118. Urine osmolality was 488. The patient states that she was recently started on hydrochlorothiazide. She has been on Trileptal as well for seizures. No history of significant diarrhea or abdominal pain. PAST MEDICAL HISTORY: Hypertension osteoarthritis, seizure disorder, obstructive sleep apnea, hypothyroidism, esophageal stricture with history of dilatation, hiatal hernia, brain aneurysm. PAST SURGICAL HISTORY: , uterine ablation, right foot surgery, thyroid biopsy. SOCIAL HISTORY: Patient is a former smoker. No history of drug abuse or alcohol abuse. MEDICATIONS: Medications prior to admission included Lopressor, Zyrtec, Synthroid, hydralazine, Keppra, aspirin, Trileptal, Norvasc, hydrochlorothiazide. ALLERGIES: Allergies are multiple. Please see list. It includes UNASYN, CLINDAMYCIN, CODEINE, BENTYL, EGG, VICODIN, ADVIL, LATEX, LISINOPRIL which causes swelling Unasyn causes rash and hives, Naprosyn causes swelling, MILK, MAGNESIUM, WHEAT, BACTRIM. REVIEW OF SYSTEMS: As per HPI. Other systems negative. EXAMINATION: Patient is comfortable, awake. She is not in any acute distress. Blood pressure was 156/77, heart rate 89 per minute. Patient is afebrile. Examination of the heart S1, S2. Examination of the lungs, bilateral breath sounds are heard. Abdomen is soft, nontender, obese. Examination lower extremities shows edema 2+ bilaterally, mostly chronic. 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 LAB: Show urine osmolality 488. Urine sodium 135, sodium 117, potassium 4.2, chloride 77, CO2 is 31, BUN 10, serum creatinine 0.6. ASSESSMENT: 1. Hyponatremia, currently patient appears to be hypervolemic. She was also recently started on hydrochlorothiazide. Urine osmolality is on the higher side. There may be a component of SIADH, however, given the hypervolemia I will proceed with diuresis. The patient will be maintained on fluid restriction as well. She is encouraged to increase oral intake of protein. Her blood pressure is not low. I will repeat another urine another serum sodium later this evening. 2. History of seizures, maintained on Trileptal, being switched over to Keppra. 3. History of gastroesophageal reflux disease. 4. History of brain aneurysm. Current CT of the brain does not show any acute findings. PLAN: Lasix IV x1. Discontinue IV fluids. Repeat sodium in 4-5 hours. Maintain patient on fluid restriction. Continue off hydrochlorothiazide. The patient may benefit from Samsca as well depending on her repeat sodium. Thank you for this consultation. We will continue to follow the patient with you during her hospitalization. MMODL / IJN: [id number] /
[2021-04-27] MEDS: OXcarbazepine 300 MG TAB PO SCH (20:20)
[2021-04-27] MEDS: hydrALAZINE HCL 50 MG TAB PO SCH (20:20)
[2021-04-27] MEDS: FUROSEMIDE 10 MG/ML 4 ML VIAL IV SCH (20:22)
[2021-04-27] MEDS: ONDANSETRON 4 MG/2 ML VIAL IVP PRN (20:39)
[2021-04-27] MEDS ORDERED: OXcarbazepine 300 MG TAB PO SCH (21:00)
[2021-04-27] MEDS: METOPROLOL TARTRATE 50 MG TAB PO SCH (21:35)
[2021-04-27] MEDS: METOCLOPRAMIDE 5 MG/ML 2 ML VIAL IVP PRN (22:45)
[2021-04-28 00:48] LABS: Phosphorus 3.4 mg/dL (2.5-4.5); Total Bilirubin 0.5 mg/dL (0.2-1.3)
[2021-04-28] MEDS ORDERED: TOLVAPTAN 15 MG 1/2 TABLET PO ONE (01:15)
[2021-04-28] MEDS: HYDROcodone/APAP 5-325MG 1 EACH TAB PO PRN (05:43)
[2021-04-28] MEDS: LEVOTHYROXINE 50 MCG TAB PO SCH (05:44)
[2021-04-28] MEDS: METOCLOPRAMIDE 5 MG/ML 2 ML VIAL IVP PRN ×2 (05:47→14:59)
[2021-04-28] MEDS ORDERED: FUROSEMIDE 10 MG/ML 4 ML VIAL IV STA (06:25)
[2021-04-28] MEDS: ENOXAPARIN 40 MG/0.4 ML SYRINGE SQ SCH (09:41)
[2021-04-28] MEDS: FUROSEMIDE 10 MG/ML 4 ML VIAL IV SCH ×2 (09:41→20:46)
[2021-04-28] MEDS: ASPIRIN 81 MG PO SCH (09:41)
[2021-04-28] MEDS: METOPROLOL TARTRATE 50 MG TAB PO SCH ×2 (09:42→20:47)
[2021-04-28] MEDS: hydrALAZINE HCL 50 MG TAB PO SCH ×2 (09:42→20:46)
[2021-04-28] MEDS: PANTOPRAZOLE 40 MG TABLET PO SCH (09:42)
[2021-04-28] MEDS: amLODIPine 5 MG TAB PO SCH (09:42)
[2021-04-28] MEDS: OXcarbazepine 300 MG TAB PO SCH ×2 (09:43→21:12)
[2021-04-28] MEDS: levETIRAcetam 500 MG TAB PO SCH ×2 (09:43→20:47)
[2021-04-28 10:35] LABS: African American GFR (CKD) >90 (>60 ml/min/1.73 sqM); Anion Gap 11 mmol/L; Blood Urea Nitrogen 9 mg/dL (7-17); Calcium 8.3 mg/dL (8.4-10.2); Carbon Dioxide 32 mmol/L (22-30); Glucose 136 mg/dL (74-99); Non-African American GFR(CKD) 87 (>60 ml/min/1.73 sqM); Potassium 3.9 mmol/L (3.5-5.1)
[2021-04-28 11:03] LABS: Sodium 117 mmol/L (137-145)
[2021-04-28 11:07] LABS: Chloride 74 mmol/L (98-107)
[2021-04-28] MEDS: ONDANSETRON 4 MG/2 ML VIAL IVP PRN (12:14)
--- NOTE | 2021-04-28 13:17 | PN ---
PROGRESS NOTE Patient is seen for followup for hyponatremia. The patient was admitted to the hospital with a serum sodium of 118. She did receive IV fluid bolus initially with saline. Her serum sodium did not improve; in fact, it went down to 1.7. She does have significant edema and was recently started on thiazide diuretics prior to admission. Thiazides are on hold. Patient is maintained on Lasix, and her sodium did not improve yesterday. She did get a dose of Samsca as well last night. Serum sodium staying at 117 mEq/L. At this point, patient will be started on 3% saline. On examination today, blood pressure is 144/70, heart rate 90 per minute. She is afebrile. EXAMINATION OF THE HEART: S1 and S2. EXAMINATION OF LUNGS: Bilateral breath sounds are heard. ABDOMEN: Soft, nontender, obese. LOWER EXTREMITIES: Examination of lower extremities shows edema 2+ bilaterally. BUSINESS SYSTEM CONSULTANT EXAM: Grossly intact. Labs show sodium 117, potassium 3.9, chloride 74, CO2 32, BUN 9, serum creatinine 0.76. ASSESSMENT: 1. Hypervolemic hyponatremia. Urine osmolality on the higher side with suggestion of underlying possible SIADH as well. Patient is status post tolvaptan 15 mg yesterday and she is maintained on IV Lasix. Serum sodium has not improved further. I will start her on 3% saline and repeat labs in 4 hours. Patient is advised fluid restriction. 2. Hypertension. Blood pressure is on the higher side. The patient remains volume- overloaded. Continue with Lasix. Continue current antihypertensive medications. She does have lower extremity edema, possibly related to Norvasc as well. I will decrease the Norvasc to 5 mg daily. PLAN: Decrease Norvasc to 5 mg daily. Add 3% saline. Continue with Lasix. Repeat sodium in 4 hours. Check chest x-ray. MMODL / IJN: [id number] /
--- NOTE | 2021-04-28 13:41 | XR ---
EXAMINATION TYPE: XR chest 1V DATE OF EXAM: 04/28/2021 COMPARISON: 10/27/2020 INDICATION: CHF TECHNIQUE: Single frontal view of the chest is obtained. FINDINGS: The heart size is normal. The pulmonary vasculature is normal. The lungs are clear. IMPRESSION: 1. No acute pulmonary process.
[2021-04-28 15:12] LABS: Glucose,Whole Blood 141 mg/dL (75-99)
[2021-04-28] MEDS ORDERED: SODIUM CHLORIDE 3%(HYPERTONIC) 500 ML IV SCH (15:30)
--- NOTE | 2021-04-28 16:13 | P.PN ---
Subjective Progress Note Date: 04/28/21 Patient is a pleasant 60-year-old female came in with compensative nausea vomiting headache be started last night headache was severe on the top of the head which resolved at this time nausea vomiting improved as well but patient is still with nauseous. Patient denied any fever chills. Patient had history of a pseudoaneurysm the past patient had a CT of the head which did not show any significant abnormality. Patient is found to be severely hyponatremic with serum sodium of 118. I do not have any urine sodium but urine osmolality is 488 when serum osmolality is 248. Patient does take hydrocodone thiazide which can give this picture. Patient is also on Trileptal which can cause syndrome of cindy ppropriate area secretion patient does have leukocytosis which appears to be reactive, patient was receiving IV fluids since last night upon the decision to per hour I'll repeat basic metabolic profile to see the sodium trend. Patient will be continued on Trileptal and Keppra for now. 04/28/2021 Patient is evaluated at the bedside today she is sitting up in the chair. Patient is currently denying any nausea or vomiting, headache. Patient is being monitored closely for her sodium level, repeat level this morning was 117. Patient states that she was being evaluated outpatient to be weaned off of Keppra onto Trileptal. However , Trileptal can cause some SIADH due to this, neurology was consulted. Patient was given a dose of IV Lasix today from nephrology and started on IV Lasix 40 every 12 IV. Patient thiazide diuretic has been discontinued as this can contribute to some hyponatremia as well. Patient was given a one-time dose of Tolvaptan 50 mg at 1 AM today. Patient has been continued all of her medications. Vital signs remained stable, afebrile 97.9, heart rate 70, blood pressure 133/74, 95% on room air. This afternoon. Patient's chloride came back critical at 74, CO2 32. Patient denies any chest pain, palpitations, cough or shortness of breath. Patient continues on a 1200 mL fluid restriction with multiple food ALLERGIES. Serum sodium every 4 has been ordered 11. Chest x-ray is negative for any acute process. ROS Constitutional: Denied any fatigue denied any fever. Cardio vascular: denied any chest pain, palpitations Gastrointestinal denied any nausea vomiting Pulmonary: Denied any shortness of breath cough Neurologic denied any new focal deficits All inpatient medications were reviewed and appropriate changes in these medications as dictated in the interval history and assessment and plan. PHYSICAL EXAMINATION: GENERAL: The patient is alert and oriented x3, not in any acute distress. Well developed, well nourished. HEENT: Pupils are round and equally reacting to light. EOMI. No scleral icterus. No conjunctival pallor. Normocephalic, atraumatic. No pharyngeal erythema. No thyromegaly. CARDIOVASCULAR: S1 and S2 present. No murmurs, rubs, or gallops. PULMONARY: Chest is clear to auscultation, no wheezing or crackles. ABDOMEN: Soft, nontender, nondistended, normoactive bowel sounds. No palpable organomegaly. MUSCULOSKELETAL: No joint swelling or deformity. EXTREMITIES: No cyanosis, clubbing, does have 1+ pitting pedal edema in bilateral lower extremity NEUROLOGICAL: Gross neurological examination did not reveal any focal deficits. SKIN: No rashes. Assessment and plan -Hyponatremia: Appears to be hypervolemic, continue IV Lasix Nephrology following sodium level closely, sodium every 411 has been ordered Trileptal will be continued for now, neurology consultation -Leukocytosis reactive and secondary to nausea vomiting repeat in the morning -nausea vomiting may be related to hyponatremia will continue to monitor patient denied any abdominal pain. No evidence of intracranial bleed at this time -History of seizure disorder patient will be resumed on her antiseizure medications -obesity, sleep apnea can use CPAP machine -hypothyroidism -osteoarthritis -Anxiety disorder -Hypertension continue on all antihypertensive medications DVT prophylaxis: Subcutaneous Lovenox Patient is monitor closely due to hyponatremia that is not resolving with IV Lasix. Plan per nephrology's note is to start patient on a 3% saline drip if the sodium is not improved. Patient will need to be transferred to the ICU this happens. Norvasc has been at decreased. Monitor intake and output strictly, 1200 mL fluid resection. Awaiting neurology consultation. Objective - Vital Signs Vital signs: Vital Signs Temp 97.9 F 04/28/21 08:00 Pulse 90 04/28/21 08:00 Resp 18 04/28/21 08:00 BP 144/70 04/28/21 08:00 Pulse Ox 97 04/28/21 08:00 Intake & Output 04/27/21 04/28/21 04/28/21 18:59 06:59 18:59 Intake Total 298 Output Total 25 Balance -25 298 Weight 141.7 kg Intake: Oral 298 Output: Emesis 25 Other: Voiding Method Toilet Toilet # Voids 1 1 - Labs CBC & Chem 7: 04/27/21 02:58 04/28/21 14:48 Labs: Abnormal Lab Results - Last 24 Hours (Table) 04/27/21 04/28/21 04/28/21 Range/Units 21:04 05:31 09:54 Sodium 118 L* 117 L* 117 L* (137-145) mmol/L Chloride 74 L* (98-107) mmol/L Carbon Dioxide 32 H (22-30) mmol/L Glucose 136 H (74-99) mg/dL Calcium 8.3 L (8.4-10.2) mg/dL
[2021-04-29 04:05] LABS: Potassium 4.1 mmol/L (3.5-5.1)
[2021-04-29 04:06] LABS: Basophils % (A) 0 %; Eosinophils # (A) 0.1 k/uL (0-0.7); Eosinophils % (A) 1 %; HCT 37.7 % (34.0-46.0); HGB 12.4 gm/dL (11.4-16.0); Lymphocytes # (A) 1.8 k/uL (1.0-4.8); Lymphocytes % (A) 14 %; MCH 29.3 pg (25.0-35.0); MCHC 32.9 g/dL (31.0-37.0); Mean Platelet Volume 6.5; Monocytes # (A) 0.9 k/uL (0-1.0); Monocytes % (A) 7 %; Neutrophils # (A) 9.8 k/uL (1.3-7.7); Neutrophils % (A) 76 %; Platelet Count 291 k/uL (150-450); RBC 4.23 m/uL (3.80-5.40); WBC 12.8 k/uL (3.8-10.6)
[2021-04-29] MEDS: LEVOTHYROXINE 50 MCG TAB PO SCH (06:29)
[2021-04-29] MEDS: ASPIRIN 81 MG PO SCH (08:19)
[2021-04-29] MEDS: FUROSEMIDE 10 MG/ML 4 ML VIAL IV SCH ×2 (08:19→21:12)
[2021-04-29] MEDS: amLODIPine 5 MG TAB PO SCH (08:19)
[2021-04-29] MEDS: ENOXAPARIN 40 MG/0.4 ML SYRINGE SQ SCH (08:19)
[2021-04-29] MEDS: hydrALAZINE HCL 50 MG TAB PO SCH ×2 (08:19→21:12)
[2021-04-29] MEDS: OXcarbazepine 300 MG TAB PO SCH (08:20)
[2021-04-29] MEDS: levETIRAcetam 500 MG TAB PO SCH ×2 (08:20→21:11)
[2021-04-29] MEDS: METOPROLOL TARTRATE 50 MG TAB PO SCH ×2 (08:20→21:11)
[2021-04-29] MEDS: PANTOPRAZOLE 40 MG TABLET PO SCH (08:20)
--- NOTE | 2021-04-29 10:47 | P.CNNES ---
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 For headaches, throwing up. The headache was involving top of the head, back of the head and the neck. The headache started 2 weeks ago right after she was seen by her neurologist Dr. Rob Carr on 04/16/2021. The headaches are not constant, occurring off and on, sometimes are bad that she has to lay down. She could not tell me details if she has any previous history of headaches as well. Patient has long-standing history of seizure disorder as mentioned below. She was planned to be weaned off Keppra and started on Trileptal at that visit. Patient states that right after she started having headaches. Denies any focal symptoms. Vital signs on arrival blood pressure 167/90, pulse rate 73, temperature 97.4. Patient's blood test shows WBC 15.9 hemoglobin 15.2, platelet 339. Sodium 118, potassium 4.4, normal renal functions. Bowles virus PCR negative. Hepatic panel normal. Patient's sodium has been running 118 or 119, but most recently has improved to 124. CT head showed no acute process. Chest x-ray showed no acute pulmonary process. Patient had a MRI of the brain performed previously on 05/26/2018, which revealed nonspecific white matter demyelination, correlate for possible multiple sclerosis, hypertension, migraine headaches, vasculitis and chronic small vessel ischemic changes. Patient had an EEG on 05/26/2018, which was normal. Patient states that she has history of seizure disorder since she was in high school, but was not diagnosed until in . She was placed on Dilantin which she took for 2 years. She then weaned herself off Dilantin after she became in 1984. She stayed off seizure medication for almost 30 years, when she was started on Keppra about 2 years ago, currently on 1000 mg in the morning, 2000 mg at bedtime. Also on Trileptal 600 mg twice a day. Patient states that she gets sleep seizures. She could not tell the frequency of the seizures. I spoke to patient's sister Miroslava, who provided with more detailed history. Miroslava states that patient had seizures off and on all the way through although she had stopped medication for those 30 years. Last seizure was somewhat different, as it happened while she was awake. They were coming home from movie, when she had a seizure in the car, in which her upper body was jerking, and the seizure lasted for about 2-3 minutes. She did not have any warning or aura before her seizure. At night she usually sleeps in a recliner. The only way she would be aware of seizures, when someone witnesses a seizure. Mostly she sleeps alone, and would never know if she had a seizure at night. Usually her upper body shakes, occasionally the lower body, lasting for a few minutes. The time she could have these seizures [id number]. She never had bitten her tongue although often loses control of urine with her seizures. Patient's sister has witnessed about more than a dozen seizures in the last 2 years. These are all witnessed. Uncertain if she has any more unwitnessed seizures at night. Patient's sister also told me that she has been diagnosed with brain aneurysm in late spring, early summer this year. In July 2020 she was told that patient had "bleed around the brain", but she was not hospitalized for that. Patient or her sister does not know details about it. Patient patient has smoked 1-1/2 pack per day for 22 years, quit in 2004. Denies any alcohol or drugs. Patient's father is epileptic. Review of Systems Patient complains of fatigue Denies headache at this time. No double vision. She has some nausea, but no vomiting. Denies any chest pain, abdominal pain. No fever or chills. No rash. Denies any problem with bowels or bladder. She has low back pain once in a while. Her neck snapped recently and feels better. She has some memory issues. All other review of systems unremarkable. 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 she stated she has had a bx and egd w/dilation.no bx results as of yet". uses cpap machine, upper dental brisge, hiatal hernia, gout feet and rt arm, palpatations. "chronic rash legs,arms". brain aneryusm History of Any Multi-Drug Resistant Organisms: MRSA Date of last positivie culture/infection: 2007 MDRO Source:: leg Past Surgical History: Section, Orthopedic Surgery, Uterine Ablation Additional Past Surgical History / Comment(s): right foot, leg. egd/dilation, thyroid bx-no results yet. Past Anesthesia/Blood Transfusion Reactions: No Reported Reaction Additional Past Anesthesia/Blood Transfusion Reaction / Comment(s): clausterphobia. never had a blood transfusion. Past Psychological History: Anxiety Smoking Status: Former smoker Past Alcohol Use History: Rare Past Drug Use History: None Reported - Past Family History Mother History Unknown: Yes Additional Family Medical History / Comment(s): pt stated she was adopted at age 5 does'nt kow anything about her mom Father Family Medical History: Cancer, Hypertension, Seizure Disorder Additional Family Medical History / Comment(s): heart problems, brittle bone disease Medications and Allergies Home Medications Medication Instructions Recorded Confirmed Type Metoprolol Tartrate [Lopressor] 50 mg PO BID 05/25/18 04/27/21 History Cetirizine HCl [Zyrtec] 10 mg PO DAILY PRN 10/27/20 04/27/21 History Levothyroxine Sodium [Synthroid] 50 mcg PO DAILY 10/27/20 04/27/21 History hydrALAZINE HCL [Apresoline] 50 mg PO BID 10/27/20 04/27/21 History levETIRAcetam [Keppra] 1,000 mg PO DAILY 10/27/20 04/27/21 History levETIRAcetam [Keppra] 2,000 mg PO HS 10/27/20 04/27/21 History Aspirin EC [Ecotrin Low Dose] 81 mg PO DAILY 04/27/21 04/27/21 History Fluticasone Nasal [place] [Flonase 2 spr EA NOSTRIL DAILY PRN 04/27/21 04/27/21 History Nasal [place]] OXcarbazepine [Trileptal] 300 mg PO BID 04/27/21 04/27/21 History OXcarbazepine [Trileptal] 600 mg PO BID 04/27/21 04/27/21 History amLODIPine [Norvasc] 5 mg PO BID 04/27/21 04/27/21 History hydroCHLOROthiazide [Hydrodiuril] 25 mg PO DAILY 04/27/21 04/27/21 History Allergies Allergy/AdvReac Type Severity Reaction Status Date / Time ampicillin [From Unasyn] Allergy Rash/Hives Verified 04/27/21 07:28 clindamycin Allergy Rash/Hives Verified 04/27/21 07:28 codeine Allergy Rapid Verified 04/27/21 07:28 Heart Rate dicyclomine [From Bentyl] Allergy Rash/Hives Verified 04/27/21 07:28 egg Allergy Unknown Verified 04/27/21 07:28 hydrocodone [From Vicodin] Allergy Vomiting Verified 04/27/21 07:28 ibuprofen [From Advil] Allergy Swelling Verified 04/27/21 07:28 latex Allergy Rash/Hives Verified 04/27/21 07:28 lisinopril Allergy Swelling Verified 04/27/21 07:28 magnesium Allergy Unknown Verified 04/27/21 07:28 milk Allergy Unknown Verified 04/27/21 07:28 naproxen Allergy Swelling Verified 04/27/21 07:28 sulbactam [From Unasyn] Allergy Rash/Hives Verified 04/27/21 07:28 sulfamethoxazole Allergy upset Verified 04/27/21 07:28 [From Bactrim] stomach trimethoprim [From Bactrim] Allergy upset Verified 04/27/21 07:28 stomach wheat Allergy Unknown Verified 04/27/21 07:28 Physical Examination - Vital Signs Vital Signs: Vital Signs Temp Pulse Pulse Resp BP BP Pulse Ox 04/29/21 09:00 84 26 H 129/78 93 L 04/29/21 08:00 97.9 F 71 16 125/44 94 L 04/29/21 07:00 64 13 135/75 94 L 04/29/21 06:00 63 15 117/61 96 04/29/21 05:00 60 17 117/61 94 L 04/29/21 04:00 98.7 F 76 32 H 122/78 94 L 04/29/21 03:00 61 11 L 99/62 95 04/29/21 02:00 56 L 12 108/80 95 04/29/21 01:00 56 L 10 L 90/54 95 04/29/21 00:24 56 L 12 90/54 95 04/29/21 00:00 98.9 F 55 L 10 L 135/74 94 L 04/28/21 23:30 56 L 11 L 135/74 95 04/28/21 23:00 66 17 158/88 96 04/28/21 22:30 68 10 L 96 04/28/21 22:00 87 25 H 148/75 94 L 04/28/21 21:30 69 11 L 148/75 92 L 04/28/21 21:00 81 22 147/75 96 04/28/21 20:30 90 21 147/75 90 L 04/28/21 20:00 97.5 F L 78 12 141/82 91 L 04/28/21 19:30 84 22 141/82 96 04/28/21 19:00 70 13 160/81 93 L 04/28/21 18:30 160/81 04/28/21 18:00 82 72 H 155/87 90 L 04/28/21 17:30 79 16 155/87 93 L 04/28/21 17:00 85 22 142/83 95 04/28/21 16:30 70 16 142/83 93 L 04/28/21 16:00 97.8 F 78 29 H 139/81 93 L 04/28/21 15:30 70 18 150/88 93 L 04/28/21 15:10 70 11 L 150/88 93 L 04/28/21 14:00 70 18 04/28/21 12:00 70 18 133/74 95 Intake and Output 04/28/21 04/29/21 04/29/21 22:59 06:59 14:59 Intake Total 550 275 75 Output Total 1350 350 0 Balance -800 -75 75 Intake: IV 225 75 Sodium Chloride 3%( 225 75 Hypertonic) 500 ml @ 25 mls/hr IV .Q20H DEEPAK Rx#: [id number] Intake, IV Titration 150 Amount Sodium Chloride 3%( 150 Hypertonic) 500 ml @ 25 mls/hr IV .Q20H DEEPAK Rx#: [id number] Oral 400 50 Output: Urine 1350 350 0 Other: Voiding Method Toilet Toilet Toilet # Voids 0 # Bowel Movements 1 Weight 139.2 kg Patient is a middle aged female, in no acute distress. Patient is alert awake oriented to time place and person. Patient knows it is [place] although states the year is 2019, but then stated was year 2020. She knows she is in [facility] in [facility]. Speech and language functions are normal. Attention, concentration and fund of knowledge is somewhat limited. On cranial examination, pupils are equal, round and reacting to light, visual deal are full on confrontation, extraocular muscles are intact with no nystagmus. Face is symmetric, tongue protrudes to the midline. Palatal elevation and sensation normal, hearing and shoulder shrug normal, facial sensa tion normal. Shoulder shrug normal. On muscle strength testing, there is no pronator drift and the strength is normal in arms and legs distally and proximally. Deep tendon reflexes are 2+, and symmetric in the arms and legs. Plantars downgoing. Sensory to touch is equal with no neglect. Cerebellar function showed no ataxia for [id number] testing. No dysdiadochokinesia. Tone and bulk of muscles normal. Gait normal. On general examination, there is no carotid bruit or murmur, S1-S2 audible. Abdomen is soft nontender. Chest is clear. Peripheral pulses are present. No edema. Results - Laboratory Findings CBC and BMP: 04/29/21 03:11 04/29/21 17:30 Abnormal Lab Findings: Abnormal Labs 04/27/21 04/27/21 04/27/21 02:58 02:58 02:58 WBC 15.9 H Neutrophils # 13.6 H Sodium 118 L* Chloride 77 L Carbon Dioxide Glucose 134 H POC Glucose (mg/dL) Osmolality 248 L* Calcium 04/27/21 04/27/21 04/28/21 10:41 21:04 05:31 WBC Neutrophils # Sodium 117 L* 118 L* 117 L* Chloride 77 L Carbon Dioxide 31 H Glucose 148 H POC Glucose (mg/dL) Osmolality Calcium 04/28/21 04/28/21 04/28/21 09:54 14:48 15:10 WBC Neutrophils # Sodium 117 L* 117 L* Chloride 74 L* Carbon Dioxide 32 H Glucose 136 H POC Glucose (mg/dL) 141 H Osmolality Calcium 8.3 L 04/28/21 04/28/21 04/29/21 18:34 22:37 03:11 WBC 12.8 H Neutrophils # 9.8 H Sodium 118 L* 119 L* Chloride Carbon Dioxide Glucose POC Glucose (mg/dL) Osmolality Calcium 04/29/21 04/29/21 03:11 07:07 WBC Neutrophils # Sodium 121 L 124 L Chloride 78 L Carbon Dioxide 35 H Glucose POC Glucose (mg/dL) Osmolality Calcium 8.0 L Assessment and Plan Assessment: * Acute hyponatremia, likely related to side effect of Trileptal. HCTZ may be contributing. * Seizure disorder, not well controlled. * Cephalalgia, possibly related to significant hyponatremia. CT head negative for any subarachnoid hemorrhage. Her headache has now resolved. * Reported history of cerebral aneurysm. * Obesity * Sleep apnea * Osteoarthritis. * Hypertension Plan: * Patient has developed acute hyponatremia related to Trileptal. We will decrease dose of Trileptal to 300 mg twice a day. * Patient's cephalgia could be related to hyponatremia. The headache has now resolved. * Continue Keppra at the same dose. Patient takes Keppra 1000 mg in the morning and 2000 mg at night to help with nocturnal seizures. * I would consider adding Lamictal for seizure control. Lamictal does not affect her weight, or sodium level. * Nephrology following for hyponatremia. * We will call patient's neurologist to get information about cerebral aneurysm. * Discussed with patient's friend Miroslava in detail. Addendum 6 PM: Spoke to Dr. Hills. After discussing case, we decided to stop the Trileptal. They were trying to wean off Keppra because patient was having behavioral problems. At present we will continue Keppra at the same dose for now. Patient will be weaned off Keppra slowly as an outpatient. Start Vimpat 50 mg twice a day for one week and then increase to 100 mg twice a day. Per Dr. Hills, the cerebral aneurysm is very small 2-3 mm, he was not sure about the location of the aneurysm. Patient will follow up regarding aneurysm at their office. Time with Patient: Greater than 30
--- NOTE | 2021-04-29 11:02 | P.CNPUL ---
History of Present Illness Consult date: 04/29/21 Requesting physician: Ariana Leyva Reason for consult: other (Critical care management) Chief complaint: Severe headache with nausea and vomiting History of present illness: This is a very pleasant 60-year-old female patient who has a history of hypertension, osteoarthritis, seizure disorder, obstructive sleep apnea on home CPAP, hypothyroidism, lupus. She presented here to the hospital with a severe headache and nausea and vomiting. She was found to be hyponatremic with a sodium of 118. The patient does take hydrochlorothiazide, Trileptal. She was placed on 3% sodium at 25 ML's per hour and transferred to the intensive care unit for the same. Presently she is, sitting up in a chair at the bedside. Awake and alert in no acute distress. Currently maintaining O2 saturations in the 90s on room air. Afebrile. Hemodynamically stable. Chest x-ray revealed no acute pulmonary process. Computed tomography scan of the brain revealed no acute abnormalities. White count 12.8. Hemoglobin 12.4. Sodium up to 124. Potassium 4.1. Chloride 78. Bicarb 35. Creatinine 1.02. Bowles virus detected. She remains on Keppra, Trileptal. No seizure activity. Review of Systems REVIEW OF SYSTEMS: CONSTITUTIONAL: Denies any recent significant weight loss or weight gain. EYES: Denies change in vision. EARS, NOSE, MOUTH, THROAT: Positive for headache, denies sore throat. CARDIOVASCULAR: Denies chest pain, palpitations or syncopal episodes. RESPIRATORY: Denies shortness of breath, cough, congestion or hemoptysis. GASTROINTESTINAL: Denies change in appetite, denies abdominal pain GENITOURINARY: Denies hematuria, denies infections. MUSKULOSKELETAL: Denies pain, denies swelling. INTEGUMENTARY: Denies rash, denies eczema. NEUROLOGICAL: Denies recent memory loss, no recent seizure activity. PSYCHIATRIC: Denies anxiety, denies depression. HEMATOLOGIC/LYMPHATIC: Denies anemia, denies enlarged lymph nodes. 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 she stated she has had a bx and egd w/dilation.no bx results as of yet". uses cpap machine, upper dental brisge, hiatal hernia, gout feet and rt arm, palpatations. "chronic rash legs,arms". brain aneryusm History of Any Multi-Drug Resistant Organisms: MRSA Date of last positivie culture/infection: 2007 MDRO Source:: leg Past Surgical History: Section, Orthopedic Surgery, Uterine Ablation Additional Past Surgical History / Comment(s): right foot, leg. egd/dilation, thyroid bx-no results yet. Past Anesthesia/Blood Transfusion Reactions: No Reported Reaction Additional Past Anesthesia/Blood Transfusion Reaction / Comment(s): gilda sterphobia. never had a blood transfusion. Past Psychological History: Anxiety Smoking Status: Former smoker Past Alcohol Use History: Rare Past Drug Use History: None Reported - Past Family History Mother History Unknown: Yes Additional Family Medical History / Comment(s): pt stated she was adopted at age 5 does'nt kow anything about her mom Father Family Medical History: Cancer, Hypertension, Seizure Disorder Additional Family Medical History / Comment(s): heart problems, brittle bone disease Medications and Allergies Home Medications Medication Instructions Recorded Confirmed Type Metoprolol Tartrate [Lopressor] 50 mg PO BID 05/25/18 04/27/21 History Cetirizine HCl [Zyrtec] 10 mg PO DAILY PRN 10/27/20 04/27/21 History Levothyroxine Sodium [Synthroid] 50 mcg PO DAILY 10/27/20 04/27/21 History hydrALAZINE HCL [Apresoline] 50 mg PO BID 10/27/20 04/27/21 History levETIRAcetam [Keppra] 1,000 mg PO DAILY 10/27/20 04/27/21 History levETIRAcetam [Keppra] 2,000 mg PO HS 10/27/20 04/27/21 History Aspirin EC [Ecotrin Low Dose] 81 mg PO DAILY 04/27/21 04/27/21 History Fluticasone Nasal Gamaliel [Flonase 2 spr EA NOSTRIL DAILY PRN 04/27/21 04/27/21 History Nasal Gamaliel] OXcarbazepine [Trileptal] 300 mg PO BID 04/27/21 04/27/21 History OXcarbazepine [Trileptal] 600 mg PO BID 04/27/21 04/27/21 History amLODIPine [Norvasc] 5 mg PO BID 04/27/21 04/27/21 History hydroCHLOROthiazide [Hydrodiuril] 25 mg PO DAILY 04/27/21 04/27/21 History Allergies Allergy/AdvReac Type Severity Reaction Status Date / Time ampicillin [From Unasyn] Allergy Rash/Hives Verified 04/27/21 07:28 clindamycin Allergy Rash/Hives Verified 04/27/21 07:28 codeine Allergy Rapid Verified 04/27/21 07:28 Heart Rate dicyclomine [From Bentyl] Allergy Rash/Hives Verified 04/27/21 07:28 egg Allergy Unknown Verified 04/27/21 07:28 hydrocodone [From Vicodin] Allergy Vomiting Verified 04/27/21 07:28 ibuprofen [From Advil] Allergy Swelling Verified 04/27/21 07:28 latex Allergy Rash/Hives Verified 04/27/21 07:28 lisinopril Allergy Swelling Verified 04/27/21 07:28 magnesium Allergy Unknown Verified 04/27/21 07:28 milk Allergy Unknown Verified 04/27/21 07:28 naproxen Allergy Swelling Verified 04/27/21 07:28 sulbactam [From Unasyn] Allergy Rash/Hives Verified 04/27/21 07:28 sulfamethoxazole Allergy upset Verified 04/27/21 07:28 [From Bactrim] stomach trimethoprim [From Bactrim] Allergy upset Verified 04/27/21 07:28 stomach wheat Allergy Unknown Verified 04/27/21 07:28 Physical Exam Vitals: Vital Signs Temp Pulse Pulse Resp BP BP Pulse Ox 04/29/21 10:00 73 20 132/67 91 L 04/29/21 09:00 84 26 H 129/78 93 L 04/29/21 08:00 97.9 F 71 16 125/44 94 L 04/29/21 07:00 64 13 135/75 94 L 04/29/21 06:00 63 15 117/61 96 04/29/21 05:00 60 17 117/61 94 L 04/29/21 04:00 98.7 F 76 32 H 122/78 94 L 04/29/21 03:00 61 11 L 99/62 95 04/29/21 02:00 56 L 12 108/80 95 04/29/21 01:00 56 L 10 L 90/54 95 04/29/21 00:24 56 L 12 90/54 95 04/29/21 00:00 98.9 F 55 L 10 L 135/74 94 L 04/28/21 23:30 56 L 11 L 135/74 95 04/28/21 23:00 66 17 158/88 96 04/28/21 22:30 68 10 L 96 04/28/21 22:00 87 25 H 148/75 94 L 04/28/21 21:30 69 11 L 148/75 92 L 04/28/21 21:00 81 22 147/75 96 04/28/21 20:30 90 21 147/75 90 L 04/28/21 20:00 97.5 F L 78 12 141/82 91 L 04/28/21 19:30 84 22 141/82 96 04/28/21 19:00 70 13 160/81 93 L 04/28/21 18:30 160/81 04/28/21 18:00 82 72 H 155/87 90 L 04/28/21 17:30 79 16 155/87 93 L 04/28/21 17:00 85 22 142/83 95 04/28/21 16:30 70 16 142/83 93 L 04/28/21 16:00 97.8 F 78 29 H 139/81 93 L 04/28/21 15:30 70 18 150/88 93 L 04/28/21 15:10 70 11 L 150/88 93 L 04/28/21 14:00 70 18 04/28/21 12:00 70 18 133/74 95 Intake and Output 04/28/21 04/29/21 04/29/21 22:59 06:59 14:59 Intake Total 550 275 100 Output Total 1350 350 0 Balance -800 -75 100 Intake: IV 225 100 Sodium Chloride 3%( 225 100 Hypertonic) 500 ml @ 25 mls/hr IV .Q20H DEEPAK Rx#: [id number] Intake, IV Titration 150 Amount Sodium Chloride 3%( 150 Hypertonic) 500 ml @ 25 mls/hr IV .Q20H DEEPAK Rx#: [id number] Oral 400 50 Output: Urine 1350 350 0 Other: Voiding Method Toilet Toilet Toilet # Voids 0 # Bowel Movements 1 Weight 139.2 kg GENERAL EXAM: Alert, very pleasant 60-year-old female patient, in a chair at bedside, room air, comfortable in no apparent distress. HEAD: Normocephalic. EYES: Normal reaction of pupils, equal size. NOSE: Clear with pink turbinates. THROAT: No erythema or exudates. NECK: No masses, no JVD. CHEST: No chest wall deformity. LUNGS: Equal air entry with no crackles, wheeze, rhonchi or dullness. CVS: S1 and S2 normal with no audible murmur, regular rhythm. ABDOMEN: No hepatosplenomegaly, normal bowel sounds, no guarding or rigidity. SPINE: No scoliosis or deformity SKIN: No rashes CENTRAL NERVOUS SYSTEM: No focal deficits, tone is normal in all 4 extremities. EXTREMITIES: There is no peripheral edema. No clubbing, no cyanosis. Peripheral pulses are intact. Results - Laboratory Findings CBC and BMP: 04/29/21 03:11 04/29/21 07:07 Abnormal lab findings: Abnormal Labs 04/27/21 04/27/21 04/27/21 02:58 02:58 02:58 WBC 15.9 H Neutrophils # 13.6 H Sodium 118 L* Chloride 77 L Carbon Dioxide Glucose 134 H POC Glucose (mg/dL) Osmolality 248 L* Calcium 04/27/21 04/27/21 04/28/21 10:41 21:04 05:31 WBC Neutrophils # Sodium 117 L* 118 L* 117 L* Chloride 77 L Carbon Dioxide 31 H Glucose 148 H POC Glucose (mg/dL) Osmolality Calcium 04/28/21 04/28/21 04/28/21 09:54 14:48 15:10 WBC Neutrophils # Sodium 117 L* 117 L* Chloride 74 L* Carbon Dioxide 32 H Glucose 136 H POC Glucose (mg/dL) 141 H Osmolality Calcium 8.3 L 04/28/21 04/28/21 04/29/21 18:34 22:37 03:11 WBC 12.8 H Neutrophils # 9.8 H Sodium 118 L* 119 L* Chloride Carbon Dioxide Glucose POC Glucose (mg/dL) Osmolality Calcium 04/29/21 04/29/21 03:11 07:07 WBC Neutrophils # Sodium 121 L 124 L Chloride 78 L Carbon Dioxide 35 H Glucose POC Glucose (mg/dL) Osmolality Calcium 8.0 L - Diagnostic Findings Chest x-ray: image reviewed Assessment and Plan Assessment: 1 Cephalgia secondary to acute hyponatremia him a hypervolemic 2 Hyponatremia initial sodium 118, currently 124 3 History of seizure disorder 4 Hypertension 5 Anxiety disorder 6 Osteoarthritis 7 History of lupus 8 Obstructive sleep apnea on CPAP in the outpatient setting 9 Hypothyroidism Plan: The patient was seen and evaluated by Dr. Hernandez Currently stable from the pulmonary and critical care standpoint Could be transferred out of the intensive care unit to the regular medical floor today Continue to monitor sodium We will continue to follow and make further recommendations based on her clinical status I, the cosigning physician, performed a history & physical examination of the patient. Lungs sounds are clear. Maintaining good O2 saturations in the 90s on room air. I discussed the assessment and plan of care with my nurse practitioner, Jenny Gonzalez. I attest to the above consultation as dictated by her. Time with Patient: Greater than 30
--- NOTE | 2021-04-29 12:55 | PN ---
PROGRESS NOTE Patient is seen for followup for hyponatremia which is mostly hypervolemic. The patient was transferred to ICU for 3% saline yesterday, as her serum sodium did not improve with tolvaptan, fluid restriction and Lasix. Today her sodium is up to 124. The patient states she is feeling fairly well, with improvement in her symptoms of weird feeling in the head. No numbness, tingling. PHYSICAL EXAMINATION: On examination today, blood pressure is 129/78, heart rate 84 per minute. She is afebrile. EXAMINATION OF THE HEART: S1 and S2. EXAMINATION OF LUNGS: Decreased breath sounds at the bases. ABDOMEN: Soft, obese. LOWER EXTREMITIES: Examination of lower extremities shows edema 1+ bilaterally. LARD TUB WASHER EXAM: Grossly intact. LABS: Sodium 124, potassium 4.1, chloride 78, CO2 35, hemoglobin 12.4. ASSESSMENT: 1. Hyponatremia, currently hypervolemic with elevated urine osmolality with possible component of SIADH as well, maintained on IV Lasix and status post 3% saline. The patient has received a couple of doses of tolvaptan with no further improvement in the sodium prior to the 3%. At this time we can discontinue the 3% saline after labs at 11 a.m., and based on her sodium I will give her a dose of tolvaptan. In the meantime, Norvasc dose was decreased to once a day because of lower extremity edema, and I will continue with the Lasix 40 mg q.12 hours. 2. History of seizures, being followed by Neurology, maintained on Keppra and Trileptal. 3. Hypertension, currently controlled. PLAN: Discontinue 3% saline at 11 a.m. Continue with Lasix. Maintain fluid restriction and increase protein diet. Will repeat tolvaptan based on the repeat sodium level. MMODL / IJN: [id number] /
[2021-04-29] MEDS ORDERED: TOLVAPTAN 15 MG 1/2 TABLET PO ONE ×2 (13:30→23:35)
--- NOTE | 2021-04-29 14:31 | P.PN ---
Subjective Progress Note Date: 04/29/21 Patient is a pleasant 60-year-old female came in with compensative nausea vomiting headache be started last night headache was severe on the top of the head which resolved at this time nausea vomiting improved as well but patient is still with nauseous. Patient denied any fever chills. Patient had history of a pseudoaneurysm the past patient had a CT of the head which did not show any significant abnormality. Patient is found to be severely hyponatremic with serum sodium of 118. I do not have any urine sodium but urine osmolality is 488 when serum osmolality is 248. Patient does take hydrocodone thiazide which can give this picture. Patient is also on Trileptal which can cause syndrome of cindy ppropriate area secretion patient does have leukocytosis which appears to be reactive, patient was receiving IV fluids since last night upon the decision to per hour I'll repeat basic metabolic profile to see the sodium trend. Patient will be continued on Trileptal and Keppra for now. 04/28/2021 Patient is evaluated at the bedside today she is sitting up in the chair. Patient is currently denying any nausea or vomiting, headache. Patient is being monitored closely for her sodium level, repeat level this morning was 117. Patient states that she was being evaluated outpatient to be weaned off of Keppra onto Trileptal. However , Trileptal can cause some SIADH due to this, neurology was consulted. Patient was given a dose of IV Lasix today from nephrology and started on IV Lasix 40 every 12 IV. Patient thiazide diuretic has been discontinued as this can contribute to some hyponatremia as well. Patient was given a one-time dose of Tolvaptan 50 mg at 1 AM today. Patient has been continued all of her medications. Vital signs remained stable, afebrile 97.9, heart rate 70, blood pressure 133/74, 95% on room air. This afternoon. Patient's chloride came back critical at 74, CO2 32. Patient denies any chest pain, palpitations, cough or shortness of breath. Patient continues on a 1200 mL fluid restriction with multiple food ALLERGIES. Serum sodium every 4 has been ordered 11. Chest x-ray is negative for any acute process. 04/29/2021 Patient states that she was diagnosed with seizures in her childhood and had taken Dilantin in the past. She stopped Dilantin prior to having her first child. She is currently maintained on Keppra for nocturnal seizures. She said her father does have a history of grand mal seizures. Patient was recently started on Trileptal and since then she had been having some headaches. Currently patient is denying any headache, vision changes, focal neurological deficits. She denies any chest pain, palpations, cough or shortness of breath. Patient is evaluated in ICU sitting up in the chair. She saw neurology today who decreased her Trileptal, continue on Keppra. She is being followed closely by nephrology. Current sodium level is 124, 3% saline drip has been discontinued. Plan is for a repeat dose of tolvaptan pending sodium level. Vital signs are stable she is 97.9, 69 sinus rhythm, blood pressure 124/70, 9191% on room air. Per patient history she apparently was diagnosed with a brain aneurysm in 2019, reports are being obtained from her neurologist. ROS Constitutional: Denied any fatigue denied any fever. Cardio vascular: denied any chest pain, palpitations Gastrointestinal denied any nausea vomiting Pulmonary: Denied any shortness of breath cough Neurologic denied any new focal deficits All inpatient medications were reviewed and appropriate changes in these medications as dictated in the interval history and assessment and plan. PHYSICAL EXAMINATION: GENERAL: The patient is alert and oriented x3, not in any acute distress. Well developed, well nourished. HEENT: Pupils are round and equally reacting to light. EOMI. No scleral icterus. No conjunctival pallor. Normocephalic, atraumatic. No pharyngeal erythema. No thyromegaly. CARDIOVASCULAR: S1 and S2 present. No murmurs, rubs, or gallops. PULMONARY: Chest is clear to auscultation, no wheezing or crackles. ABDOMEN: Soft, nontender, nondistended, normoactive bowel sounds. No palpable organomegaly. MUSCULOSKELETAL: No joint swelling or deformity. EXTREMITIES: No cyanosis, clubbing, does have 1+ pitting pedal edema in bilateral lower extremity NEUROLOGICAL: Gross neurological examination did not reveal any focal deficits. SKIN: No rashes. Assessment and plan -Hyponatremia: Appears to be hypervolemic, continue IV Lasix Nephrology following sodium level closely, current level 124, 3% saline drip has been discontinued Trileptal has been decreased Per neurology -Leukocytosis reactive and secondary to nausea vomiting repeat in the morning -nausea vomiting may be related to hyponatremia will continue to monitor patient denied any abdominal pain. No evidence of intracranial bleed at this time -History of seizure disorder patient will be resumed on her antiseizure medications -obesity, sleep apnea can use CPAP machine -hypothyroidism -osteoarthritis -Anxiety disorder -Hypertension continue on all antihypertensive medications, Norvasc was decreased DVT prophylaxis: Subcutaneous Lovenox Patient is DC'd from the 3% saline drip. She is continued on IV Lasix, pending repeat sodium level. Nephrology is following this closely. In addition patient is being evaluated by neurology for her seizure medications. Further recommendations pending. Objective - Vital Signs Vital signs: Vital Signs Temp 97.9 F 04/29/21 08:00 Pulse 67 04/29/21 11:00 Resp 14 04/29/21 11:00 BP 136/76 04/29/21 11:00 Pulse Ox 88 L 04/29/21 11:00 Intake & Output 04/28/21 04/29/21 04/29/21 18:59 06:59 18:59 Intake Total 773 350 125 Output Total 650 1050 0 Balance 123 -700 125 Weight 139.2 kg Intake: IV 225 125 Sodium Chloride 3%( 225 125 Hypertonic) 500 ml @ 25 mls/hr IV .Q20H DEEPAK Rx#: [id number] Intake, IV Titration 75 75 Amount Sodium Chloride 3%( 75 75 Hypertonic) 500 ml @ 25 mls/hr IV .Q20H DEEPAK Rx#: [id number] Oral 698 50 Output: Urine 650 1050 0 Other: Voiding Method Toilet Toilet Toilet # Voids 1 0 # Bowel Movements 1 - Labs CBC & Chem 7: 04/29/21 03:11 04/29/21 11:03 Labs: Abnormal Lab Results - Last 24 Hours (Table) 04/28/21 04/28/21 04/28/21 Range/Units 14:48 15:10 18:34 WBC (3.8-10.6) k/uL Neutrophils # (1.3-7.7) k/uL Sodium 117 L* 118 L* (137-145) mmol/L Chloride (98-107) mmol/L Carbon Dioxide (22-30) mmol/L POC Glucose (mg/dL) 141 H (75-99) mg/dL Calcium (8.4-10.2) mg/dL 04/28/21 04/29/21 04/29/21 Range/Units 22:37 03:11 03:11 WBC 12.8 H (3.8-10.6) k/uL Neutrophils # 9.8 H (1.3-7.7) k/uL Sodium 119 L* 121 L (137-145) mmol/L Chloride 78 L (98-107) mmol/L Carbon Dioxide 35 H (22-30) mmol/L POC Glucose (mg/dL) (75-99) mg/dL Calcium 8.0 L (8.4-10.2) mg/dL 04/29/21 Range/Units 07:07 WBC (3.8-10.6) k/uL Neutrophils # (1.3-7.7) k/uL Sodium 124 L (137-145) mmol/L Chloride (98-107) mmol/L Carbon Dioxide (22-30) mmol/L POC Glucose (mg/dL) (75-99) mg/dL Calcium (8.4-10.2) mg/dL
[2021-04-29] MEDS ORDERED: OXcarbazepine 300 MG TAB PO SCH (21:00)
[2021-04-29] MEDS: LACOSAMIDE 50 MG TABLET PO SCH (21:11)
[2021-04-30] MEDS: LEVOTHYROXINE 50 MCG TAB PO SCH (05:32)
[2021-04-30 06:49] LABS: Basophils % (A) 0 %; Eosinophils # (A) 0.1 k/uL (0-0.7); Eosinophils % (A) 1 %; HCT 40.6 % (34.0-46.0); HGB 12.9 gm/dL (11.4-16.0); Lymphocytes # (A) 1.3 k/uL (1.0-4.8); Lymphocytes % (A) 11 %; MCH 29.1 pg (25.0-35.0); MCHC 31.8 g/dL (31.0-37.0); MCV 91.4 fL (80.0-100.0); Mean Platelet Volume 6.4; Monocytes # (A) 0.9 k/uL (0-1.0); Monocytes % (A) 7 %; Neutrophils # (A) 9.5 k/uL (1.3-7.7); Neutrophils % (A) 80 %; Platelet Count 324 k/uL (150-450); RBC 4.44 m/uL (3.80-5.40); RDW 13.9 % (11.5-15.5)
[2021-04-30 07:07] LABS: ALT 20 U/L (4-34); AST 27 U/L (14-36); African American GFR (CKD) 68 (>60 ml/min/1.73 sqM); Albumin 3.7 g/dL (3.5-5.0); Albumin/Globulin Ratio 1.3; Alkaline Phosphatase 111 U/L (38-126); Anion Gap 6 mmol/L; Blood Urea Nitrogen 21 mg/dL (7-17); Calcium 8.9 mg/dL (8.4-10.2); Carbon Dioxide 39 mmol/L (22-30); Chloride 84 mmol/L (98-107); Globulin 2.9 g/dL; Glucose 107 mg/dL (74-99); Non-African American GFR(CKD) 59 (>60 ml/min/1.73 sqM); Potassium 4.8 mmol/L (3.5-5.1); Sodium 129 mmol/L (137-145); Total Bilirubin 0.2 mg/dL (0.2-1.3); Total Protein 6.6 g/dL (6.3-8.2)
[2021-04-30] MEDS: ENOXAPARIN 40 MG/0.4 ML SYRINGE SQ SCH (07:31)
[2021-04-30] MEDS: levETIRAcetam 500 MG TAB PO SCH ×2 (07:31→20:21)
[2021-04-30] MEDS: hydrALAZINE HCL 50 MG TAB PO SCH ×2 (07:31→20:21)
[2021-04-30] MEDS: PANTOPRAZOLE 40 MG TABLET PO SCH (07:31)
[2021-04-30] MEDS: FUROSEMIDE 10 MG/ML 4 ML VIAL IV SCH ×2 (07:31→20:21)
[2021-04-30] MEDS: ASPIRIN 81 MG PO SCH (07:31)
[2021-04-30] MEDS: amLODIPine 5 MG TAB PO SCH (07:32)
[2021-04-30] MEDS: METOPROLOL TARTRATE 50 MG TAB PO SCH ×2 (07:32→20:22)
[2021-04-30] MEDS: LACOSAMIDE 50 MG TABLET PO SCH ×2 (07:32→20:21)
[2021-04-30] MEDS ORDERED: TOLVAPTAN 30 MG TABLET PO ONE (13:00)
--- NOTE | 2021-04-30 13:30 | PN ---
PROGRESS NOTE Patient is seen for followup for hyponatremia. This is currently hypervolemic and the patient is status post 3% saline as her sodium level was not improving. She is currently maintained on IV Lasix with fluid restriction and got a couple of doses of Samsca yesterday. Her sodium is up to 129 today. Overall, patient states she feels fairly well. PHYSICAL EXAMINATION: On examination today, blood pressure was 152/84, heart rate 74 per minute. Patient is afebrile. Examination of the heart S1, S2. Examination of the lungs, decreased breath sounds at the bases. Abdomen is soft, nontender. Examination of lower extremities shows chronic skin changes, edema 1+ bilaterally, mostly chronic. OIL SPECULATOR exam grossly intact. LAB: Show sodium is 129 today. ASSESSMENT: 1. Hypervolemic hyponatremia with possible element of SIADH as urine osmolality was significantly high at 488. The patient is currently maintained on IV Lasix which I will continue. She has received two doses of Samsca yesterday, total 30 mg. Her sodium has improved. I will continue with free water restriction as well and we will repeat another dose of Samsca today and repeat labs in a.m. 2. Hypertension currently controlled. Lower extremity edema improved. The patient was also on Norvasc which may have contributed to her edema. The dose has been decreased to 5 mg daily now. PLAN: Continue with IV Lasix. Repeat Samsca today. Repeat labs in a.m. Possible discharge tomorrow. Patient will need to continue off of thiazide diuretics, maintain some degree of fluid restriction and maintain good oral protein intake. She may need to continue with tolvaptan 1-2 times per week post discharge. MMODL / IJN: [id number] /
--- NOTE | 2021-04-30 14:48 | P.PN ---
Subjective Progress Note Date: 04/30/21 Patient is a pleasant 60-year-old female came in with compensative nausea vomiting headache be started last night headache was severe on the top of the head which resolved at this time nausea vomiting improved as well but patient is still with nauseous. Patient denied any fever chills. Patient had history of a pseudoaneurysm the past patient had a CT of the head which did not show any significant abnormality. Patient is found to be severely hyponatremic with serum sodium of 118. I do not have any urine sodium but urine osmolality is 488 when serum osmolality is 248. Patient does take hydrocodone thiazide which can give this picture. Patient is also on Trileptal which can cause syndrome of cindy ppropriate area secretion patient does have leukocytosis which appears to be reactive, patient was receiving IV fluids since last night upon the decision to per hour I'll repeat basic metabolic profile to see the sodium trend. Patient will be continued on Trileptal and Keppra for now. 04/28/2021 Patient is evaluated at the bedside today she is sitting up in the chair. Patient is currently denying any nausea or vomiting, headache. Patient is being monitored closely for her sodium level, repeat level this morning was 117. Patient states that she was being evaluated outpatient to be weaned off of Keppra onto Trileptal. However , Trileptal can cause some SIADH due to this, neurology was consulted. Patient was given a dose of IV Lasix today from nephrology and started on IV Lasix 40 every 12 IV. Patient thiazide diuretic has been discontinued as this can contribute to some hyponatremia as well. Patient was given a one-time dose of Tolvaptan 50 mg at 1 AM today. Patient has been continued all of her medications. Vital signs remained stable, afebrile 97.9, heart rate 70, blood pressure 133/74, 95% on room air. This afternoon. Patient's chloride came back critical at 74, CO2 32. Patient denies any chest pain, palpitations, cough or shortness of breath. Patient continues on a 1200 mL fluid restriction with multiple food ALLERGIES. Serum sodium every 4 has been ordered 11. Chest x-ray is negative for any acute process. 04/29/2021 Patient states that she was diagnosed with seizures in her childhood and had taken Dilantin in the past. She stopped Dilantin prior to having her first child. She is currently maintained on Keppra for nocturnal seizures. She said her father does have a history of grand mal seizures. Patient was recently started on Trileptal and since then she had been having some headaches. Currently patient is denying any headache, vision changes, focal neurological deficits. She denies any chest pain, palpations, cough or shortness of breath. Patient is evaluated in ICU sitting up in the chair. She saw neurology today who decreased her Trileptal, continue on Keppra. She is being followed closely by nephrology. Current sodium level is 124, 3% saline drip has been discontinued. Plan is for a repeat dose of tolvaptan pending sodium level. Vital signs are stable she is 97.9, 69 sinus rhythm, blood pressure 124/70, 9191% on room air. Per patient history she apparently was diagnosed with a brain aneurysm in 2019, reports are being obtained from her neurologist. 04/30/2021 Patient is evaluated today down to ICU. She is alert and oriented 3, she states that her headaches have resolved. Patient is up ambulatory without difficulty. sodium level today is 129, continues on 1200 mL fluid restriction and IV Lasix. Patient was evaluated by neurology discontinued her Trileptal, start patient on Vimpat. Patient's hydrochlorothiazide has also been discontinued. Patient has had 2 doses of Samsca, a repeat has been ordered from nephrology. Vital signs are currently stable, afebrile, heart rate 73 sinus rhythm, BP 126/74, 94% room air. White blood cell count today is 12, creatinine 1.05 ROS Constitutional: Denied any fatigue denied any fever. Cardio vascular: denied any chest pain, palpitations Gastrointestinal denied any nausea vomiting Pulmonary: Denied any shortness of breath cough Neurologic denied any new focal deficits All inpatient medications were reviewed and appropriate changes in these medications as dictated in the interval history and assessment and plan. PHYSICAL EXAMINATION: GENERAL: The patient is alert and oriented x3, not in any acute distress. Well developed, well nourished. HEENT: Pupils are round and equally reacting to light. EOMI. No scleral icterus. No conjunctival pallor. Normocephalic, atraumatic. No pharyngeal erythema. No thyromegaly. CARDIOVASCULAR: S1 and S2 present. No murmurs, rubs, or gallops. PULMONARY: Chest is clear to auscultation, no wheezing or crackles. ABDOMEN: Soft, nontender, nondistended, normoactive bowel sounds. No palpable organomegaly. MUSCULOSKELETAL: No joint swelling or deformity. EXTREMITIES: No cyanosis, clubbing, does have 1+ pitting pedal edema in bilateral lower extremity NEUROLOGICAL: Gross neurological examination did not reveal any focal deficits. SKIN: No rashes. Assessment and plan -Hyponatremia, hypervolemic: Continue on IV Lasix, 1200 mL fluid restriction, Trileptal discontinued, 3 doses of Samsca have been given -Leukocytosis reactive and secondary to nausea vomiting repeat in the morning, improving -History of seizure disorder patient will be resumed on her antiseizure medications adjustments made per neurology -obesity, sleep apnea can use CPAP machine -hypothyroidism -osteoarthritis -Anxiety disorder -Hypertension continue on all antihypertensive medications, Norvasc was decrease d DVT prophylaxis: Subcutaneous Lovenox GI prophylaxis: Protonix Pending sodium levels in the morning patient may be discharged home tomorrow. Continue with 1200 mL fluid restriction. Objective - Vital Signs Vital signs: Vital Signs Temp 98.9 F 04/30/21 05:04 Pulse 74 04/30/21 05:04 Resp 18 04/30/21 08:00 BP 152/84 04/30/21 05:04 Pulse Ox 94 L 04/30/21 05:04 Intake & Output 04/29/21 04/30/21 04/30/21 18:59 06:59 18:59 Intake Total 125 100 Output Total 100 950 Balance 25 100 -950 Intake: IV 125 Sodium Chloride 3%( 125 Hypertonic) 500 ml @ 25 mls/hr IV .Q20H [facility] Rx#: [id number] Oral 100 Output: Urine 100 950 Other: Voiding Method Toilet Toilet Toilet # Voids 0 3 - Labs CBC & Chem 7: 04/30/21 06:06 04/30/21 06:06 Labs: Abnormal Lab Results - Last 24 Hours (Table) 04/29/21 04/29/21 04/29/21 Range/Units 11:03 17:30 21:03 WBC (3.8-10.6) k/uL Neutrophils # (1.3-7.7) k/uL Sodium 124 L 125 L 125 L (137-145) mmol/L Chloride (98-107) mmol/L Carbon Dioxide (22-30) mmol/L BUN (7-17) mg/dL Creatinine (0.52-1.04) mg/dL Glucose (74-99) mg/dL 04/30/21 04/30/21 Range/Units 06:06 06:06 WBC 12.0 H (3.8-10.6) k/uL Neutrophils # 9.5 H (1.3-7.7) k/uL Sodium 129 L (137-145) mmol/L Chloride 84 L (98-107) mmol/L Carbon Dioxide 39 H (22-30) mmol/L BUN 21 H (7-17) mg/dL Creatinine 1.05 H (0.52-1.04) mg/dL Glucose 107 H (74-99) mg/dL Assessment and Plan Time with Patient: Greater than 30
--- NOTE | 2021-04-30 16:12 | P.PN ---
Subjective Progress Note Date: 04/30/21 Patient was seen for a follow-up. Patient feels better. No seizures. Headache has resolved. Denies dizziness. Objective - Vital Signs Vital signs: Vital Signs Temp 98.9 F 04/30/21 05:04 Pulse 74 04/30/21 05:04 Resp 18 04/30/21 08:00 BP 152/84 04/30/21 05:04 Pulse Ox 94 L 04/30/21 05:04 Intake & Output 04/29/21 04/30/21 04/30/21 18:59 06:59 18:59 Intake Total 125 100 Output Total 100 950 Balance 25 100 -950 Intake: IV 125 Sodium Chloride 3%( 125 Hypertonic) 500 ml @ 25 mls/hr IV .Q20H [facility] Rx#: [id number] Oral 100 Output: Urine 100 950 Other: Voiding Method Toilet Toilet Toilet # Voids 0 3 - Exam Essentially unchanged. Patient mentally slightly more sharp. - Labs CBC & Chem 7: 04/30/21 06:06 04/30/21 06:06 Labs: Abnormal Lab Results - Last 24 Hours (Table) 04/29/21 04/29/21 04/30/21 Range/Units 17:30 21:03 06:06 WBC 12.0 H (3.8-10.6) k/uL Neutrophils # 9.5 H (1.3-7.7) k/uL Sodium 125 L 125 L (137-145) mmol/L Chloride (98-107) mmol/L Carbon Dioxide (22-30) mmol/L BUN (7-17) mg/dL Creatinine (0.52-1.04) mg/dL Glucose (74-99) mg/dL 04/30/21 Range/Units 06:06 WBC (3.8-10.6) k/uL Neutrophils # (1.3-7.7) k/uL Sodium 129 L (137-145) mmol/L Chloride 84 L (98-107) mmol/L Carbon Dioxide 39 H (22-30) mmol/L BUN 21 H (7-17) mg/dL Creatinine 1.05 H (0.52-1.04) mg/dL Glucose 107 H (74-99) mg/dL Assessment and Plan Assessment: * Acute hyponatremia, likely related to side effect of Trileptal. HCTZ may be contributing. * Mild encephalopathy, likely due to above. * Seizure disorder, not well controlled. * Cephalalgia, possibly related to significant hyponatremia. CT head negative for any subarachnoid hemorrhage. Her headache has now resolved. * Reported history of cerebral aneurysm. * Obesity * Sleep apnea * Osteoarthritis. * Hypertension Plan: * Patient has developed acute hyponatremia related to Trileptal. Trileptal has been discontinued. Her sodium has improved to 129 today. * Continue Vimpat 50 mg twice a day for one week and then 100 mg twice a day and continue. * Patient's cephalgia was probably related to hyponatremia. The headache has now resolved. * Continue Keppra at the same dose. Patient takes Keppra 1000 mg in the morning and 2000 mg at night to help with nocturnal seizures. * Nephrology following for hyponatremia. * After speaking to patient's primary neurologist, it appears they were trying to wean off Keppra because patient was having behavioral problems. At present we will continue Keppra at the same dose for now. Patient will be weaned off Keppra slowly as an outpatient. * Per Dr. Hills, the cerebral aneurysm is very small 2-3 mm, he was not sure about the location of the aneurysm. Patient will follow up regarding aneurysm at their office. * Recommend patient do not drive for 6 months unless seizure free, climbing ladders, operate dangerous machinery or unsupervised swimming. * Neurologically clear, if cleared by Gen. medical/hyponatremia standpoint.
[2021-05-01] MEDS: LEVOTHYROXINE 50 MCG TAB PO SCH (05:00)
[2021-05-01] MEDS: FUROSEMIDE 10 MG/ML 4 ML VIAL IV SCH (07:14)
[2021-05-01] MEDS: ENOXAPARIN 40 MG/0.4 ML SYRINGE SQ SCH (07:15)
[2021-05-01] MEDS: METOPROLOL TARTRATE 50 MG TAB PO SCH (07:17)
[2021-05-01] MEDS: levETIRAcetam 500 MG TAB PO SCH (07:17)
[2021-05-01] MEDS: amLODIPine 5 MG TAB PO SCH (07:17)
[2021-05-01] MEDS: hydrALAZINE HCL 50 MG TAB PO SCH (07:17)
[2021-05-01] MEDS: PANTOPRAZOLE 40 MG TABLET PO SCH (07:17)
[2021-05-01] MEDS: LACOSAMIDE 50 MG TABLET PO SCH (07:17)
[2021-05-01] MEDS: ASPIRIN 81 MG PO SCH (07:17)
[2021-05-01 12:08] VITALS: BP 152/84; PULSE 74; RESP 17; TEMP 97.7
[2021-05-01 14:43] LABS: African American GFR (CKD) 57.7 (60.0-200.0); Albumin 4.4 g/dL (3.80-4.90); Albumin/Globulin Ratio 2.1 (1.60-3.17); Anion Gap 10.2 mmol/L (4.00-12.00); BUN/Creat Ratio 19.17 Ratio (12.00-20.00); Calcium 9.2 mg/dL (8.7-10.3); Carbon Dioxide 33.8 mmol/L (21.6-31.8); Globulin 2.1 g/dL (1.6-3.3); Non-African American GFR(CKD) 49.8 (60.0-200.0); Potassium 4.6 mmol/L (3.5-5.5); Total Bilirubin 0.2 mg/dL (0.3-1.2); Total Protein 6.5 g/dL (6.2-8.2)
--- NOTE | 2021-05-01 15:45 | P.PN ---
Subjective Progress Note Date: 05/01/21 Patient was seen for a follow-up. Patient feels even more better as compared to yesterday. No seizures. Headache has resolved. Denies dizziness. Objective - Vital Signs Vital signs: Vital Signs Temp 97.7 F 05/01/21 12:07 Pulse 74 05/01/21 12:07 Resp 17 05/01/21 12:07 BP 152/84 05/01/21 12:07 Pulse Ox 93 L 05/01/21 12:07 Intake & Output 04/30/21 05/01/21 05/01/21 18:59 06:59 18:59 Intake Total 240 Output Total 950 Balance -710 Intake: Oral 240 Output: Urine 950 Other: Voiding Method Toilet Toilet Toilet # Voids 2 - Exam Patient's mental status, speech and language functions are normal. Patient is oriented 3. Patient knows it is April 2021 and that she is in [facility] and name of the current president. Language functions are normal. Cranial nerves normal. Muscle strength is normal. No ataxia. - Labs CBC & Chem 7: 04/30/21 06:06 05/01/21 05:24 Labs: Abnormal Lab Results - Last 24 Hours (Table) 05/01/21 Range/Units 05:24 Chloride 93 L (96-109) mmol/L Carbon Dioxide 33.8 H (21.6-31.8) mmol/L Est GFR (CKD-EPI)AfAm 57.7 L (60.0-200.0) Est GFR (CKD-EPI)NonAf 49.8 L (60.0-200.0) Total Bilirubin 0.2 L (0.3-1.2) mg/dL Assessment and Plan Assessment: * Acute hyponatremia, likely related to side effect of Trileptal. HCTZ may be contributing. * Mild encephalopathy, likely due to above. * Seizure disorder, not well controlled. * Cephalalgia, possibly related to significant hyponatremia. CT head negative for any subarachnoid hemorrhage. Her headache has now resolved. * Reported history of cerebral aneurysm. * Obesity * Sleep apnea * Osteoarthritis. * Hypertension Plan: * Patient has developed acute hyponatremia related to Trileptal. Trileptal has been discontinued. Her sodium is back to normal 137 today. * Continue Vimpat 50 mg twice a day for one week and then 100 mg twice a day and continue. * Patient's cephalgia was probably related to hyponatremia. The headache has now resolved. * Continue Keppra at the same dose. Patient takes Keppra 1000 mg in the morning and 2000 mg at night to help with nocturnal seizures. * After speaking to patient's primary neurologist, it appears they were trying to wean off Keppra because patient was having behavioral problems. At present we will continue Keppra at the same dose for now. Patient will be weaned off Keppra slowly as an outpatient. * Per Dr. Hills, the cerebral aneurysm is very small 2-3 mm, he was not sure about the location of the aneurysm. Patient will follow up regarding aneurysm at their office. * Informed patient do not drive for 6 months unless seizure free, climbing ladders, operate dangerous machinery or unsupervised swimming. * Neurologically clear.
--- NOTE | 2021-05-01 20:45 | PN ---
PROGRESS NOTE Patient is seen for followup for hyponatremia, mostly hypervolemic, currently improved with IV diuretics and tolvaptan. The patient's sodium is up to 137 today. She is being discharged. PHYSICAL EXAMINATION: Blood pressure is 152/84, heart rate 74 per minute. She is afebrile. EXAMINATION OF THE HEART: S1 and S2. EXAMINATION OF LUNGS: Bilateral breath sounds are heard. ABDOMEN: Soft, nontender, obese. LOWER EXTREMITIES: Examination of lower extremities shows edema 1+ bilaterally. MEDICAL WRITER EXAM: Grossly intact. LABS: Labs show sodium to 137, potassium 4.6. ASSESSMENT: 1. Hypervolemic hyponatremia, improved with loop diuretics and tolvaptan along with fluid restriction. The patient had been on thiazide diuretics, which were discontinued. She can be discharged with oral Lasix and fluid restriction. She should repeat labs in about 3-4 days post discharge. We will evaluate for need for tolvaptan as outpatient if her sodium level drops again. The patient is also encouraged to maintain good oral protein intake. 2. Hypertension, currently stable. 3. Seizure disorder, maintained on Keppra and started on lacosamide. MMODL / IJN: [id number] /
--- NOTE | 2021-05-01 22:01 | P.DS ---
Providers Date of admission: 04/27/21 06:16 Attending physician: Heber Carvajal Consults: 04/27/21 10:03 Consult Physician Routine Consulting Provider: Micah Lopez Consult Reason/Comments: Hyponatremia Do you want consulting provider notified?: Yes 04/28/21 11:20 Consult Physician Routine Consulting Provider: Parker Llanes Consult Reason/Comments: pt on trileptal - hyponatremia; weaning off keppra to trileptal outpt Do you want consulting provider notified?: Yes 04/28/21 16:28 Consult Physician Routine Consulting Provider: Gavin Hernandez Consult Reason/Comments: icu mgt, hyponatremia requiring 3% saline gtt Do you want consulting provider notified?: Yes Primary care physician: Roge Gil Hospital Course: Final diagnosis -Hyponatremia, hypervolemic: 1200 mL fluid restriction, Trileptal discontinued, 3 doses of Samsca have been given, Discharged on oral lasix -Cephalagia; possibly related to hypovolemic state - CT head negative for subarachnoid hemorrhage. -Leukocytosis reactive and secondary to nausea vomiting repeat in the morning, improving -History of seizure disorder patient will be resumed on her antiseizure medications adjustments made per neurology -obesity, sleep apnea can use CPAP machine -hypothyroidism -osteoarthritis -Anxiety disorder -Hypertension continue on all antihypertensive medications, Norvasc was d ecreased -History of cerebral aneurysm, not documented, will f/u with neurology obesity FULL CODE DVT prophylaxis: Subcutaneous Lovenox GI prophylaxis: Protonix Discharge disposition Patient is discharged home to follow up with her neurologist, Dr. Howard, Dr. Christensen and her PCP Dr. Nina. Patient is given a prescription for Vimpat 50 mg by mouth twice a day for 7 days and then she will need to take 100 mg Vimpat twice a day to continue. The prescription will need to be obtained from her neurologist. Patient will need to have a sodium level checked in 2 days. Hospital Course Patient is a pleasant 60-year-old female came in with compensative nausea vomiting headache be started last night headache was severe on the top of the head which resolved at this time nausea vomiting improved as well but patient is still with nauseous. Initial headache was involving the top of the head, back of the head, and the neck. Headache onset was 2 weeks ago. Headaches were precipated by an office visit to her neurologist Dr Rob Carr who was initially weaning her off keppra and started the patient on trileptal. Patient denied any fever chills. Patient had history of a pseudoaneurysm the past patient had a CT of the head which did not show any significant abnormality. Chest xray was negative for an acute process. Patient is found to be severely hyponatremic with serum sodium of 118. Urine sodium 135, urine osmolality is 488 when serum osmolality is 248. Patient does take hydrochlorothiazide which can give this picture. Patient is also on Trileptal which can cause syndrome of inappropriate area secretion patient does have leukocytosis which appears to be reactive. Patientw as initially started on 0.9 NS, however her sodium level dropped to 117, and did not improve. Pt was seen in consult by nephrology who placed the patient in the ICU on a 3% saline gtt. The patient was also given a total of 3 doses of samsca this admission. Pt's sodium improved to 121. Repeat was then 124. Patient was taken off the 3% gtt and moved back to the medical floor. She continues on 1200 CC fluid restriction as well as IV lasix 40 mg Q12. Pts sodium on 04/30 came up to 129. On 05/01/2021, pts sodium level is 137. Vital signs remain stable 97.7., HR 74, BP 152/84, 93% on room air. Pts neurology consultation recommends continuting keppra at the same dose for nocturnal seizures. Pt was weaned off trileptal and started on vimpat. Scripts were provided for the first 7 days of therapy. After reviewing consultation notes, overall plan is for patient to wean off keppra as an outpatient, due to behavioral problems. Pt is informed to not drive for 6 months, including not operating heavy machinery, climbing ladders, or swimming unsupervised. Pt was then cleared from a neurological standpoint. 05/01/2021 Patient is given a prescription for 7 days of 50 mg Vimpat po bid. Maps was reviewed and her OD risk score is 190. Patient will continue this medication along with her home dose of Keppra. Patient is to follow closely with neurology. Vision is currently denying any headache, dizziness, lightheadedness. She is ambulating without difficulty. Her lungs are clear to auscultation, S1-S2. Patient is urinating without difficulty. Patient's sodium level today is 137. Patient was cleared by nephrology to follow up with a BMP and to continue with 40 mg of Lasix twice a day. Current labs are as above. Please see medication reconciliation for a list of current medications. Thank you for allowing us to participate in the care of this patient. Patient Condition at Discharge: Stable Plan - Discharge Summary Discharge Rx Participant: Yes New Discharge Prescriptions: New Lacosamide [Vimpat] 50 mg PO BID 7 Days #14 tablet Lacosamide [Vimpat] 100 mg PO BID 1 Days #1 tab Furosemide [Lasix] 40 mg PO BID #60 tablet Continue Metoprolol Tartrate [Lopressor] 50 mg PO BID levETIRAcetam [Keppra] 1,000 mg PO DAILY OXcarbazepine [Trileptal] 600 mg PO BID Fluticasone Nasal [place] [Flonase Nasal [place]] 2 spr EA NOSTRIL DAILY PRN PRN Reason: Allergy Symptoms Levothyroxine Sodium [Synthroid] 50 mcg PO DAILY levETIRAcetam [Keppra] 2,000 mg PO HS hydrALAZINE HCL [Apresoline] 50 mg PO BID Cetirizine HCl [Zyrtec] 10 mg PO DAILY PRN PRN Reason: Allergy Symptoms amLODIPine [Norvasc] 5 mg PO BID OXcarbazepine [Trileptal] 300 mg PO BID Aspirin EC [Ecotrin Low Dose] 81 mg PO DAILY Discontinued hydroCHLOROthiazide [Hydrodiuril] 25 mg PO DAILY Discharge Medication List Metoprolol Tartrate [Lopressor] 50 mg PO BID 05/25/18 [History] Cetirizine HCl [Zyrtec] 10 mg PO DAILY PRN 10/27/20 [History] Levothyroxine Sodium [Synthroid] 50 mcg PO DAILY 10/27/20 [History] hydrALAZINE HCL [Apresoline] 50 mg PO BID 10/27/20 [History] levETIRAcetam [Keppra] 1,000 mg PO DAILY 10/27/20 [History] levETIRAcetam [Keppra] 2,000 mg PO HS 10/27/20 [History] Aspirin EC [Ecotrin Low Dose] 81 mg PO DAILY 04/27/21 [History] Fluticasone Nasal [place] [Flonase Nasal [place]] 2 spr EA NOSTRIL DAILY PRN 04/27/21 [History] OXcarbazepine [Trileptal] 300 mg PO BID 04/27/21 [History] OXcarbazepine [Trileptal] 600 mg PO BID 04/27/21 [History] amLODIPine [Norvasc] 5 mg PO BID 04/27/21 [History] Furosemide [Lasix] 40 mg PO BID #60 tablet 05/01/21 [Rx] Lacosamide [Vimpat] 50 mg PO BID 7 Days #14 tablet 05/01/21 [Rx] Lacosamide [Vimpat] 100 mg PO BID 1 Days #1 tab 05/01/21 [Rx] Follow up Appointment(s)/Referral(s): Andie Christensen MD [STAFF PHYSICIAN] - 1 Week (office will call and set up appt after they get records on the patient.) Roge Gil MD [Primary Care Provider] - 1 Week (office is closed .patientwill have to call and schedule own appt.) Steven Howard MD [Medical Doctor] - 1 Week [facility] Visiting Nurse, [NON-STAFF] - Ambulatory/Diagnostic Orders: Basic Metabolic Panel [LAB.AMB] Time Frame: 2 Days, Location: None Selected Patient Instructions/Handouts: Hyponatremia (DC) Activity/Diet/Wound Care/Special Instructions: Patient cannot drive for 6 months Do not climb ladders, operate dangerous machinery or unsupervised swimming for the next 6 months Patient is to continue on her home Keppra dosing Patient is given a prescription for Vimpat 50 mg by mouth twice a day for 7 days once this is complete she will need to take Vimpat 100 mg by mouth twice a day to continue and will need to receive the prescription from her neurologist Discharge Disposition: HOME WITH HOME HEALTH SERVICES
== END 2021-05-01 17:30 | disposition home health service (06) | DRG 641 ==
LOC: EC 02:28 → 5NMEDONC 06:16 → 3SCARD 15:40 → 2SICU 04-28 15:01 → 5NMEDONC 04-29 16:58
PROVIDERS: ADMIT Hospitalist; ATTEND Hospitalist
PROC: 05HD33Z Insertion of Infusion Device into Right Cephalic Vein, Percutaneous Approach (ICD-10-PCS; principal; 2021-04-29 07:30)
DX: E87.1 Hypo-osmolality and hyponatremia (principal); G93.40 Encephalopathy, unspecified; R11.2 Nausea with vomiting, unspecified; E03.9 Hypothyroidism, unspecified; D72.829 Elevated white blood cell count, unspecified; E66.9 Obesity, unspecified; E87.70 Fluid overload, unspecified; F41.9 Anxiety disorder, unspecified; G40.909 Epilepsy, unspecified, not intractable, without status epilepticus; G47.33 Obstructive sleep apnea (adult) (pediatric); I10 Essential (primary) hypertension; M19.90 Unspecified osteoarthritis, unspecified site; T42.1X5A Adverse effect of iminostilbenes, initial encounter; Z79.82 Long term (current) use of aspirin; Z79.890 Hormone replacement therapy; Z79.899 Other long term (current) drug therapy; Z20.822 Contact with and (suspected) exposure to COVID-19; Z82.0 Family history of epilepsy and other diseases of the nervous system; Z82.49 Family history of ischemic heart disease and other diseases of the circulatory system; Z87.891 Personal history of nicotine dependence; Z88.5 Allergy status to narcotic agent; Z88.1 Allergy status to other antibiotic agents; K21.9 Gastro-esophageal reflux disease without esophagitis; R51.9 Headache, unspecified
CPT/HCPCS: 36410; 36415; 70450; 71045; 76937; 80048; 80053; 82247; 82570; 83930; 83935; 84075; 84100; 84133; 84295; 84300; 84450; 84460; 85025; 87635

== ENCOUNTER → 2022-01-27 | Outpatient (CLI) | payer MEDICARE, OTHER | END | disposition home or self-care (01) | LOC: LABWHC1 08:14 | PROVIDERS: ATTEND Internal Medicine Nephrology | DX: D64.9 Anemia, unspecified (principal); R80.9 Proteinuria, unspecified | CPT/HCPCS: 36415; 80051; 82565; 84520; 85025; 85610; 85730; 86850; 86900; 86901 ==

== ENCOUNTER 2022-01-28 09:03 | Day surgery (SDC) | payer MEDICARE, OTHER ==
[2022-01-27 09:28] LABS: Basophils # (A) 0.1 k/uL (0-0.2); Basophils % (A) 0 %; Eosinophils # (A) 0.4 k/uL (0-0.7); Eosinophils % (A) 3 %; HGB 13.9 gm/dL (11.4-16.0); Hypochromasia Slight; Lymphocytes # (A) 1.4 k/uL (1.0-4.8); Lymphocytes % (A) 10 %; MCH 28.6 pg (25.0-35.0); MCHC 31.5 g/dL (31.0-37.0); MCV 90.7 fL (80.0-100.0); Mean Platelet Volume 6.5; Monocytes # (A) 0.8 k/uL (0-1.0); Monocytes % (A) 6 %; Neutrophils % (A) 80 %; Platelet Count 396 k/uL (150-450); RBC 4.85 m/uL (3.80-5.40); RDW 14.8 % (11.5-15.5); WBC 13.8 k/uL (3.8-10.6)
[2022-01-27 09:43] LABS: INR 0.9 (<1.2); Partial Thromboplastin Time 24.6 sec (22.0-30.0); Potassium 4.8 mmol/L (3.5-5.1); Prothrombin Time 9.9 sec (9.0-12.0)
[2022-01-28] MEDS ORDERED: ALPRAZolam 0.5 MG TAB PO STA (10:10)
[2022-01-28] MEDS ORDERED: DESMOPRESSIN ACETATE 40 MCG in SODIUM CHLORIDE 0.9% 50 ML IV ONE (10:15)
[2022-01-28 10:27] VITALS: TEMP 98.1
[2022-01-28] MEDS ORDERED: HYDROmorphone 0.5 MG/0.5 ML SYRINGE IVP STA (11:19)
--- NOTE | 2022-01-28 12:08 | CT ---
EXAMINATION TYPE: CT biopsy renal RT DATE OF EXAM: 01/28/2022 COMPARISON: NONE HISTORY: Proteinuria CT DLP: 2720 mGycm The procedure was explained to the patient. The risks, complications, benefits, and alternatives wer e discussed and any questions were answered. Informed consent was obtained. Patient was placed pron e on the CT table and prepped and draped in the usual sterile fashion. Utilizing CT guidance, an 18 gauge core biopsy needle access into the right renal cortex was achieved and three 18 gauge core samples were obtained. The patient was stable throughout the procedure and remained stable upon discharge. IMPRESSION: Successful 18 gauge core biopsy of the kidney function.
[2022-01-28 16:16] VITALS: BP 144/78; PULSE 76; RESP 16
== END 2022-01-28 16:00 | disposition home or self-care (01) ==
LOC: RADPROMAIN 09:03
PROVIDERS: ATTEND Nurse Practitioner Acute Care
DX: R80.9 Proteinuria, unspecified (principal); I12.9 Hypertensive chronic kidney disease with stage 1 through stage 4 chronic kidney disease, or unspecified chronic kidney disease; N18.9 Chronic kidney disease, unspecified
CPT/HCPCS: 50200; 77012; J2597; J1170; 36415; 80051; 82565; 84520; 85025; 85610; 85730; 86850; 86900; 86901

== ENCOUNTER → 2022-12-01 | Outpatient (CLI) | payer MEDICARE, OTHER ==
--- NOTE | 2022-12-01 15:30 | US ---
EXAMINATION TYPE: US pelvic complete DATE OF EXAM: 12/01/2022 COMPARISON: NONE CLINICAL INDICATION: Female, 62 years old with history of R10.2 PELVIC AND PELVIC PAIN; Nausea. Pain that comes and goes at night around umbilicus with hardening of pelvic area. Right ovary removed. TECHNIQUE: Transabdominal (TA). Date of LMP: Unknown, EXAM MEASUREMENTS: Uterus: 9.9 x 4.5 x 2.8 cm Endometrial Stripe: 0.2 cm Left Ovary: 2.2 x 1.8 x 1.2 cm 1. Uterus: Anteverted Heterogenous. Upper limits of normal in size. 2. Endometrium: wnl 3. Right Ovary: Surgically absent due to cyst 4. Left Ovary: wnl 5. Bilateral Adnexa: wnl 6. Posterior cul-de-sac: no free fluid Cervix= wnl IMPRESSION: No acute process.
== END | disposition home or self-care (01) ==
LOC: RADUSWWP 14:48
PROVIDERS: ATTEND Obstetrics & Gynecology Obstetrics
DX: R10.2 Pelvic and perineal pain (principal); R11.0 Nausea
CPT/HCPCS: 76856

== ENCOUNTER 2023-01-06 07:14 | Day surgery (SDC) | payer MEDICARE, OTHER ==
[2023-01-04 14:54] VITALS: BMI 51.2
[~2023-01-06 07:14] MED LIST: DEXAMETHASONE SOD PHOSPHATE 4 MG/ML 1 ML VIAL IV ONE; LACTATED RINGERS 1,000 ML IV SCH; ONDANSETRON 4 MG/2 ML VIAL IVP ONE; fentaNYL (PF) 50 MCG/ML 2 ML AMP IV PRN
[2023-01-06 07:53] VITALS: TEMP 98.1
[2023-01-06] MEDS ORDERED: LIDOCAINE 2% INJ 20 MG/ML (2 ML VIAL) ONE (08:16)
[2023-01-06] MEDS ORDERED: PROPOFOL 10 MG/ML 20 ML VIAL IV ONE (08:16)
--- NOTE | 2023-01-06 08:20 | P.GSHP ---
History of Present Illness H&P Date: 01/06/23 Chief Complaint: Epigastric pain, nausea, screening colonoscopy This a 8-year-old female presents today for EGD and screening colonoscopy. Patient with epigastric pain and nausea. Past Medical History Past Medical History: Heart Failure, COPD, Hypertension, Osteoarthritis (OA), Seizure Disorder, Sleep Apnea/CPAP/BIPAP, Thyroid Disorder Additional Past Medical History / Comment(s): lupus, pt stated "she has thyroid masses one of which overllaps esophagus. she stated she has had a bx and egd w/dilation.no bx results as of yet". uses cpap machine, upper dental bridge, hiatal hernia, gout rt arm, palpatations. "chronic rash legs, arms". brain aneryusm, osterioporosis, sciatic nerve problems, osteoarthritis, rheumatoid arthritis, walks with walker recently in rehab, Chronic low sodium level, bone marrow bx 12/28 negative result History of Any Multi-Drug Resistant Organisms: MRSA Date of last positivie culture/infection: 2007 MDRO Source:: leg Past Surgical History: Section, Cholecystectomy, Orthopedic Surgery, Uterine Ablation Additional Past Surgical History / Comment(s): right foot, leg. egd/ attempted diatation but unable , thyroid bx-no results yet. Right oopherectomy, thyoid mass schedule for removal, bone marrow bx negative 12/28 Past Anesthesia/Blood Transfusion Reactions: No Reported Reaction Additional Past Anesthesia/Blood Transfusion Reaction / Comment(s): clausterphobia. never had a blood transfusion. Smoking Status: Current every day smoker, Vaper - Past Family History Mother History Unknown: Yes Additional Family Medical History / Comment(s): pt stated she was adopted at age 5 does'nt kow anything about her mom Father Family Medical History: Cancer, Hypertension, Seizure Disorder Additional Family Medical History / Comment(s): heart problems, brittle bone disease Medications and Allergies Home Medications Medication Instructions Recorded Confirmed Type Metoprolol Tartrate [Lopressor] 50 mg PO BID 05/25/18 01/04/23 History Cetirizine HCl [Zyrtec] 10 mg PO DAILY 10/27/20 01/04/23 History Levothyroxine Sodium [Synthroid] 137 mcg PO BID 10/27/20 01/04/23 History Fluticasone Nasal [place] [Flonase 2 spr EA NOSTRIL DAILY PRN 04/27/21 01/04/23 History Nasal [place]] amLODIPine [Norvasc] 5 mg PO BID 04/27/21 01/04/23 History Topiramate 100 mg PO BID 01/04/23 01/04/23 History Torsemide [Soaanz] 20 mg PO BID 01/04/23 01/04/23 History Allergies Allergy/AdvReac Type Severity Reaction Status Date / Time ampicillin [From Unasyn] Allergy Rash/Hives Verified 01/06/23 07:42 clindamycin Allergy Rash/Hives Verified 01/06/23 07:42 codeine Allergy Rapid Verified 01/06/23 07:42 Heart Rate dicyclomine [From Bentyl] Allergy Rash/Hives Verified 01/06/23 07:42 egg Allergy Unknown Verified 01/06/23 07:42 gabapentin Allergy Unknown Verified 01/06/23 07:42 hydrocodone [From Vicodin] Allergy Vomiting Verified 01/06/23 07:42 ibuprofen [From Advil] Allergy Swelling Verified 01/06/23 07:42 latex Allergy Rash/Hives Verified 01/06/23 07:42 lisinopril Allergy Swelling Verified 01/06/23 07:42 magnesium Allergy Unknown Verified 01/06/23 07:42 milk Allergy Unknown Verified 01/06/23 07:42 naproxen Allergy Swelling Verified 01/06/23 07:42 sulbactam [From Unasyn] Allergy Rash/Hives Verified 01/06/23 07:42 sulfamethoxazole Allergy upset Verified 01/06/23 07:42 [From Bactrim] stomach trimethoprim [From Bactrim] Allergy upset Verified 01/06/23 07:42 stomach wheat Allergy Unknown Verified 01/06/23 07:42 Surgical - Exam Vital Signs Temp Pulse Resp BP Pulse Ox 98.1 F 66 16 126/60 96 01/06/23 07:51 01/06/23 07:51 01/06/23 07:51 01/06/23 07:51 01/06/23 07:51 Morbid obesity, BMI 55 - General well developed, well nourished, no distress - Eyes PERRL - ENT normal pinna - Neck no masses - Respiratory normal expansion - Cardiovascular Rhythm: regular - Abdomen Abdomen: soft, non tender Assessment and Plan Plan: Epigastric pain, nausea we'll perform EGD. Also perform screening colonoscopy.
--- NOTE | 2023-01-06 08:44 | P.OP ---
Date of Procedure: 01/06/23 Preoperative Diagnosis: Epigastric pain, nausea, screening colonoscopy Postoperative Diagnosis: Mild duodenitis Mild antral gastritis Mild esophagitis No evidence of hiatal hernia Normal colon Procedure(s) Performed: EGD Colonoscopy Anesthesia: MAC Surgeon: Tyron Mills Pathology: other (Duodenum, antrum, esophagus) Condition: stable Disposition: PACU Description of Procedure: The patient's placed on the endoscopy table in the lateral position. She received IV sedation. The gastro-/oropharynx passed in the esophagus and stomach. Scope was placed through the pylorus. The first and second portion of the duodenum was examined. There was some mild inflammation of the first part of the duodenum. This was biopsied. The scope was then brought back the antrum this was mildly inflamed. Another biopsy was performed. Scope was then retroflexed and remainder the stomach appeared normal. The GE junction was at 40 cm. There was no evidence of a hiatal hernia. The distal esophagus appeared mildly inflamed. A biopsies performed. The proximal esophagus appeared normal. Scope withdrawn for patient. Next digital rectal exam was performed. This revealed no abnormalities. The flexible colonoscope was then placed patient anus and passed throughout the entire. The ileocecal valve was visualized. Cecum, ascending and transverse colon appeared normal. Descending and sigmoid colon appeared normal. The rectum appeared normal. Scope withdrawn for patient.
[2023-01-06 09:07] VITALS: BP 129/60; PULSE 58; RESP 16
== END 2023-01-06 09:19 | disposition home or self-care (01) ==
LOC: ORWHC2ENDO 07:14
PROVIDERS: ATTEND Surgery
DX: Z12.11 Encounter for screening for malignant neoplasm of colon (principal); K29.50 Unspecified chronic gastritis without bleeding; K29.80 Duodenitis without bleeding; K21.00 Gastro-esophageal reflux disease with esophagitis, without bleeding; I11.0 Hypertensive heart disease with heart failure; I50.9 Heart failure, unspecified; J44.9 Chronic obstructive pulmonary disease, unspecified; M19.90 Unspecified osteoarthritis, unspecified site; G47.33 Obstructive sleep apnea (adult) (pediatric); F17.290 Nicotine dependence, other tobacco product, uncomplicated; M06.9 Rheumatoid arthritis, unspecified; Z90.49 Acquired absence of other specified parts of digestive tract; Z98.891 History of uterine scar from previous surgery; Z98.890 Other specified postprocedural states; Z82.49 Family history of ischemic heart disease and other diseases of the circulatory system; Z88.0 Allergy status to penicillin; Z88.5 Allergy status to narcotic agent; Z88.6 Allergy status to analgesic agent; Z91.040 Latex allergy status; Z79.899 Other long term (current) drug therapy
CPT/HCPCS: 88305; 43239; J2704; J2001; G0121

== ENCOUNTER → 2023-11-28 | Outpatient (CLI) | payer MEDICARE, OTHER ==
--- NOTE | 2023-11-30 13:46 | MM ---
Reason for Exam: Screening (asymptomatic). Last mammogram was performed 1 year(s) and 1 month(s) ago. Patient History: Menarche at age 15. First Full-Term at age 24. Postmenopausal. Risk Values: Oralia 5 year model risk: 1.3%. NCI Lifetime model risk: 6.4%. Prior Study Comparison: 07/16/2020 Bilateral Screening 3D/Tomosynthesis, [facility]. 10/18/2022 Bilateral MG 3D screening mammo w/cad, [facility]. Tissue Density: There are scattered areas of fibroglandular density. Findings: Analyzed By CAD. There is no suspicious group of microcalcifications or new suspicious mass in either breast. Overall Assessment: Benign, BI-RAD 2 Management: Screening Mammogram of both breasts in 1 year. . Patient should continue monthly self-breast exams. A clinical breast exam by your physician is recommended on an annual basis. This exam should not preclude additional follow-up of suspicious palpable abnormalities. Note on Oralia scores and lifetime risk: 1. A Oralia score greater than 3% is considered moderate risk. If this is the case, consider specialist referral to assess eligibility for a risk reducing agent. 2. If overall lifetime risk for the development of breast cancer is 20% or higher, the patient may qualify for future screening with alternating mammogram and breast MRI. Electronically signed and approved by: Dominguez Bhakta M.D. Radiologis
== END | disposition home or self-care (01) ==
LOC: RADMAMWWP 15:59
PROVIDERS: ATTEND Family Medicine
DX: Z12.31 Encounter for screening mammogram for malignant neoplasm of breast (principal); Z78.0 Asymptomatic menopausal state
CPT/HCPCS: 77063; 77067

== ENCOUNTER → 2024-02-16 | Outpatient (CLI) | payer MEDICARE, OTHER ==
[2024-02-16 15:06] LABS: HCT 45.8 % (37.2-46.3); HGB 13.9 g/dL (12.0-15.0); MCH 30.5 pg (27.0-32.0); MCHC 30.3 g/dL (32.0-37.0); MCV 100.7 FL (80.0-97.0); Mean Platelet Volume 9.4 FL (9.5-12.2); NRBC Per 100 WBC 0 X 10*3/uL (0.00-0.01); Platelet Count 305 X 10*3/uL (140-440); RBC 4.55 X 10*6/uL (4.10-5.20); RDW 14.4 % (11.5-14.5); WBC 10.04 X 10*3/uL (4.50-10.00)
[2024-02-16 15:37] LABS: Blood Urea Nitrogen 29.2 mg/dL (9.0-27.0); Carbon Dioxide 26.1 mmol/L (21.6-31.8); Chloride 100 mmol/L (96-109); Potassium 4.5 mmol/L (3.5-5.5); Sodium 140 mmol/L (135-145)
== END | disposition home or self-care (01) ==
LOC: LABPAT 10:57
PROVIDERS: ATTEND Internal Medicine Interventional Cardiology
DX: Z01.812 Encounter for preprocedural laboratory examination (principal); R94.39 Abnormal result of other cardiovascular function study
CPT/HCPCS: 80051; 82565; 84520; 85027

== ENCOUNTER 2024-02-17 05:46 | Day surgery (SDC) | payer MEDICARE, OTHER ==
[2024-02-15 11:03] VITALS: BMI 53.7
[2024-02-17] MEDS ORDERED: SODIUM CHLORIDE 0.9% 1,000 ML in EMPTY BAG 1 BAG IV SCH (06:15)
[2024-02-17] MEDS ORDERED: NITROGLYCERIN SL TABS 0.4 MG TAB SUBLINGUAL PRN (06:15)
[2024-02-17] MEDS ORDERED: ALPRAZolam 0.5 MG TAB PO PRN (06:15)
[2024-02-17] MEDS ORDERED: ASPIRIN 325 MG TAB PO STA (06:15)
[2024-02-17] MEDS ORDERED: ALPRAZolam 0.25 MG TAB PO PRN (06:15)
[2024-02-17] MEDS: SODIUM CHLORIDE 0.9% 1,000 ML IV ONE (06:52)
[2024-02-17 06:55] VITALS: RESP 16; TEMP 98.7
[2024-02-17] MEDS ORDERED: LIDOCAINE 1% INJ 10MG/ML (20 ML MDV) ONE (07:09)
[2024-02-17] MEDS ORDERED: VERAPAMIL 2.5 MG/ML 2 ML AMP ONE (07:09)
[2024-02-17] MEDS ORDERED: fentaNYL (PF) 50 MCG/ML 2 ML AMP ONE (07:27)
[2024-02-17] MEDS ORDERED: HEPARIN SODIUM 1,000 UN/ML (10ML VL) ONE (07:27)
[2024-02-17] MEDS: fentaNYL (PF) 50 MCG/ML 2 ML AMP IVP ONE (07:35)
[2024-02-17] MEDS: LIDOCAINE 1% INJ 10MG/ML (20 ML MDV) SQ ONE (07:39)
[2024-02-17] MEDS: MIDAZOLAM 2 MG/2 ML VIAL IVP ONE (07:42)
[2024-02-17] MEDS: VERAPAMIL SYRINGE (5 MG/10 ML) INTRAARTER ONE (07:43)
[2024-02-17] MEDS: HEPARIN SODIUM 1,000 UN/ML (10ML VL) IV ONE (07:45)
[2024-02-17] MEDS: IOPAMIDOL-370 100ML BTL INJ ONE (07:53)
[2024-02-17] MEDS: HEPARIN SODIUM,PORCINE (1 ML) 2,500 UNIT in SODIUM CHLORIDE 0.9% 250 ML IRRIGATION PRN (07:55)
[2024-02-17] MEDS: HEPARIN SODIUM,PORCINE 10,000 UNIT in SODIUM CHLORIDE 0.9% 1,000 ML IRRIGATION PRN (07:55)
[2024-02-17] MEDS ORDERED: RX INFO: IV CONTRAST WAS GIVEN 1 EACH MISC MISCELLANE PRN (08:02)
--- NOTE | 2024-02-17 08:07 | P.CARDCATH ---
Date of Procedure: 02/17/24 Description of Procedure: Cardiac Catheterization: The patient is a 63-year-old female with history of hypertension, obesity who presents with symptoms of progressive dyspnea and had an abnormal MPI. Recommendations were made regarding cardiac catheterization, the risks and the complications were discussed with the patient who is in full understanding and agreement. Procedure Description: Patient was brought to labor relations representative in fasting semi-sedated state after receiving Fentanyl and Benadryl achieiving moderate conscious sedated state. Using Xylocaine Anesthesia and modified Seldinger technique, a 6-Ivorian sheath was introduced in the right radial artery . Subsequently, selective coronary angiography was performed using a 5-Ivorian 3.5 bend Jackie catheter. Multiple views of the coronary artery including hemiaxial views were obtained. The 5 Ivorian pigtail catheter was used to cross the aortic valve and LVEDP was calculated. Following that, catheter and sheath were removed. Hemostasis was obtained with deployment of vascular band . There was no immediate complication. Patient was returned to room in stable condition. Of note, the patient received a total of 5000 units of intravenous heparin as well as intra-arterial verapamil. Findings: Left main: This is a short size vessel bifurcating into LAD and left circumflex, left main has no obstructive disease. LAD: This is a large size vessel, giving rise to 2 diagonal branch, the vessel tapers down in the distal third. The LAD and its branches have no obstructive disease. Left circumflex: This is a nondominant large size vessel giving rise to 2 obtuse marginal branch the second 1 is large in caliber. The proximal segment of the second OM has a 40% plaque the rest of the vessel has no high-grade stenosis RCA: This is a large dominant vessel, bifurcating into PDA and PLV, the right coronary artery and its branches have no significant obstructive disease. Left Ventriculogram: Not performed Hemodynamics: There was no gradient across the aortic valve, LVEDP was 16-18 mmHg Conclusion: 1. Mild disease in the OM 2 2. No obstructive disease in the LAD and the RCA 3. Right dominance 4. Mildly elevated LVEDP Recommendations: I have recommended to continue medical therapy with aggressive coronary risks modifications. The findings and the recommendations were discussed with the patient and the family and they were in full understanding and agreement. Duration of sedation is 18 minutes.
[2024-02-17] MEDS ORDERED: SODIUM CHLORIDE 0.9% 1,000 ML IV SCH (08:15)
[2024-02-17 12:05] VITALS: BP 131/65; PULSE 71
[2024-02-17] MEDS ORDERED: METOPROLOL TARTRATE 50 MG TAB PO SCH (21:00)
[2024-02-17] MEDS ORDERED: TOPIRAMATE 100 MG TAB PO SCH (21:00)
[2024-02-18] MEDS ORDERED: LEVOTHYROXINE 137 MCG TAB PO SCH (06:30)
== END 2024-02-17 11:43 | disposition home or self-care (01) ==
LOC: CATHCVL 05:46
PROVIDERS: ATTEND Internal Medicine Interventional Cardiology
DX: I25.10 Atherosclerotic heart disease of native coronary artery without angina pectoris (principal)
CPT/HCPCS: 93458; C1769 ×2; C1894; J2250; J1644 ×3; J2001; J3010; Q9967

== ENCOUNTER → 2024-10-31 | Outpatient (CLI) | payer MEDICARE, OTHER ==
--- NOTE | 2024-10-31 14:50 | BD ---
EXAMINATION TYPE: Axial Bone Density DATE OF EXAM: 10/31/2024 CLINICAL HISTORY: 64 years old Female. ICD-10 CODE: M810 AGE RELATED OSTEO WITHOUT CURRENT PATHOLOGI CA , Additional History: Height: 62.5 in Weight: 293 lbs FRAX RISK QUESTIONS: Secondary Osteoporosis: 3. Menopause before 45: age 44 Rheumatoid Arthritis: yes RISK FACTORS HISTORY OF: MEDICATIONS: Thyroid Medications: yes Which medication: Levothyroxine How Lon+ years EXAM MEASUREMENTS: Bone mineral densitometry was performed using the [employer] System. Bone mineral density as measured about the Lumbar spine is: ----- L1-L4(G/cm2): 1.228 T Score Values are as follows: ----- L1: 0.4 ----- L2: 0.0 ----- L3: 0.9 ----- L4: 0.2 ----- L1-L4: 0.4 Z Score Values are as follows: ----- L1: 0.6 ----- L2: 0.2 ----- L3: 1.1 ----- L4: 0.3 ----- L1-L4: 0.6 Bone mineral density has: Increased 8.3% since study of: 10/18/2022 Bone mineral density about the R hip (g/cm2): 0.871 Bone mineral density about the L hip (g/cm2): 0.792 T Score values are as follows: -----R Neck: -1.5 -----L Neck: -2.2 -----R Total: -1.1 -----L Total: -1.7 Z Score values are as follows: -----R Neck: -0.9 -----L Neck: -1.7 -----R Total: -0.9 -----L Total: -1.5 Bone mineral density has: Increased 7.8% since study of: 10/18/2022 FRAX%s: The graph provided illustrates a 11.3% chance for a major osteoporotic fx and a 1.7% chance f or the hips probability for fx in 10 years time. IMPRESSION: Osteopenia (T Score between -2.5 and -1). There is slightly increased risk of fracture and the patient may be considered for treatment. Re-Screen 2-5 years. NOTE: T-SCORE=SD OF THE YOUNG ADULT MEAN. [facility], , 10/31/2024 2:47 PM
== END | disposition home or self-care (01) ==
LOC: RADBDWWP 12:52
PROVIDERS: ATTEND Family Medicine
DX: M81.0 Age-related osteoporosis without current pathological fracture (principal); M85.89 Other specified disorders of bone density and structure, multiple sites; Z78.0 Asymptomatic menopausal state
CPT/HCPCS: 77080